=== PATIENT | female | born 1995 | race African-American/Black ===

== ENCOUNTER 2016-10-20 18:07 | Inpatient (IN) | payer OTHER ==
[~2016-10-20] VITALS: Ht 152.4 cm; Wt 69.4 kg
[2016-10-20] VITALS (10 sets, daily range): BP systolic 108–125; BP diastolic 60–74; PULSE 98–114; RESP 18; TEMP 98–98.3
[~2016-10-20 18:07] MED LIST: MACR100C PO
--- NOTE | 2016-10-20 18:35 | PD ---
HPI Chief Complaint Contractions Date Seen: Oct 20, 2016 Time Seen: 18:31 Travel History International Travel<30 Days: No Contact w/Intl Traveler<30Days: No Known Affected Area: No History of Present Illness HPI 20-year-old 3 para 1 AB 1 with an EDC of January 15 at 27 and 3 weeks gestation. She states that she has been having contractions since midnight. She denies bleeding, leakage of fluid, discharge. Her last intercourse was greater than 48 hours ago. She has not found anything to help the contractions diminish. Para: 1 : 3 Miscarriage: 1 : 0 History Past Medical History Medical History: Denies Significant Hx Obstetric History Obstetric History 1 term vaginal delivery One miscarriage with D&C Current is cared for by Christa Dunbar and has been uncomplicated so far. Past Surgical History Narrative Surgical D&C Family History Family History: Negative Social History Alcohol Use: No Tobacco Use: No Substance Abuse: No Allergies-Medications (Allergen,Severity, Reaction): Coded Allergies: No Known Allergies (Unverified , 07/08/16) Home Meds No Active Prescriptions or Reported Meds Review of Systems Except as stated in HPI: all other systems reviewed are Neg Physical Exam Narrative GENERAL: Well-nourished, well-developed patient. SKIN: Warm and dry. HEAD: Normocephalic and atraumatic. EYES: No scleral icterus. No injection or drainage. ENT: No nasal drainage noted. Mucous membranes pink. Airway patent. NECK: Supple, trachea midline. No JVD. CARDIOVASCULAR: Regular rate and rhythm without murmurs, gallops, or rubs. RESPIRATORY: Breath sounds equal bilaterally. No accessory muscle use. ABDOMEN/GI: Abdomen soft, non-tender, bowel sounds present, no rebound, no guarding Gravid to [-] weeks size Fundal Height: [-] GENITOURINARY: External Genitalia: intact and normal in appearance BUS glands: [-Negative] Cervix: [-] Dilatation: [Closed-] Effacement: [Long-] Station: [-Ballotable] Presentation: [-] Membranes: [intact] Uterine Contractions: [-] FHT's: Category: [-] Baseline: [-] Reactive: [-] Variability: [-] Decels: [-] EXTREMITIES: No cyanosis or edema. BACK: Nontender without obvious deformity. No CVA tenderness. NEUROLOGICAL: Awake and alert. Motor and sensory grossly within normal limits. Five out of 5 muscle strength in all muscle groups. Normal speech. MDM Medical Record Reviewed: Yes Narrative Course / MDM Assessment: 20-year-old multipara at 27-3/7 weeks gestation with contractions, rule out labor Plan: IV hydration, urinalysis, fibronectin Addendum: fibronectin was positive, urinalysis was negative for LC and nitrite and 5 squamous epithelial per high-power field (culture indicated) 10 mg of by mouth Procardia. Addendum: 1 hour after Procardia her contractions were diminishing however repeat cervical examination demonstrated dilation 1-2 cm 50% effacement and -2 station The patient will be admitted for treatment of labor. Scripts No Active Prescriptions or Reported Meds Demarcus Villa MD Oct 20, 2016 18:35
[2016-10-20 19:18] LABS: BACTERIA, URINE RARE /hpf; BLOOD, URINE NEG (NEG); COMMENT (UR) CULTURE INDICATED; CULTURE IF INDICATED CULTURE INDICATED; GLUCOSE,URINE 70 mg/dL (NEG); KETONE, URINE TRACE mg/dL (NEG); MUCUS URINE FEW /lpf (OCC); NITRITE,URINE NEG (NEG); PH, URINE 6.5 (5.0-8.5); SQUAMOUS EPITHELIAL CELL URINE 5 /hpf (0-5); URINE COLOR YELLOW (YELLW/STRAW)
[2016-10-20] MEDS ORDERED: NIFEdipine 10 MG CAP PO ONE (20:00)
[2016-10-20] MEDS ORDERED: SODIUM CHLORIDE 0.9% FLUSH 5 ML FLUSH IV PRN (21:15)
[2016-10-20] MEDS ORDERED: ONDANSETRON HCL 4 MG/2 ML VIAL IV PRN (21:15)
[2016-10-20] MEDS ORDERED: INDOMETHACIN 50 MG CAP PO ONE ×2 (21:15→22:30)
[2016-10-20] MEDS ORDERED: CALCIUM GLUCONATE 10% 1 GM/10 ML VIAL IV PRN (21:15)
[2016-10-20] MEDS ORDERED: MAGNESIUM SULFATE 4 GM PREMIX 100 ML IV ONE (21:15)
[2016-10-20] MEDS ORDERED: LIDOCAINE 2% JELLY 30 ML TUBE ONE (21:16)
[2016-10-20] MEDS ORDERED: PENICILLIN G POTASSIUM INJ 5,000,000 UNITS in SODIUM CHLORIDE 0.9% INJ 100 ML IV ONE (21:30)
[2016-10-20] MEDS: LACTATED RINGER'S 1000 ML INJ 1,000 ML IV SCH (21:30)
[2016-10-20] MEDS: MAGNESIUM SULFATE 40 GM PREMIX 1,000 ML IV SCH (21:31)
[2016-10-20] MEDS: BETAMETHASONE SOD PHOS/ACETATE SUSP 30 MG/5 ML VIAL IM SCH (22:00)
--- NOTE | 2016-10-20 22:36 | HHI.HP ---
History & Physical H&P HPI HPI Chief Complaint Contractions Date Seen: Oct 20, 2016 Time Seen: 18:31 Travel History International Travel<30 Days: No Contact w/Intl Traveler<30Days: No Known Affected Area: No History of Present Illness HPI 20-year-old 3 para 1 AB 1 with an EDC of January 15 at 27 and 3 weeks gestation. She states that she has been having contractions since midnight. She denies bleeding, leakage of fluid, discharge. Her last intercourse was greater than 48 hours ago. She has not found anything to help the contractions diminish. Following hydration and observation her cervix demonstrated obvious change in dilation and she was therefore admitted for treatment of labor. Para: 1 : 3 Miscarriage: 1 : 0 History (Limited) History Past Medical History Medical History: Denies Significant Hx Obstetric History Obstetric History 1 term vaginal delivery One miscarriage with D&C Current is cared for by Christa Dunbar and has been uncomplicated so far. Past Surgical History Narrative Surgical D&C Family History Family History: Negative Social History Alcohol Use: No Tobacco Use: No Substance Abuse: No Allergies-Medications Allergies-Medications (Allergen,Severity, Reaction): Coded Allergies: No Known Allergies (Unverified , 07/08/16) Home Meds No Active Prescriptions or Reported Meds ROS Review of Systems Except as stated in HPI: all other systems reviewed are Neg Physical Exam Physical Exam Narrative GENERAL: Well-nourished, well-developed patient. SKIN: Warm and dry. HEAD: Normocephalic and atraumatic. EYES: No scleral icterus. No injection or drainage. ENT: No nasal drainage noted. Mucous membranes pink. Airway patent. NECK: Supple, trachea midline. No JVD. CARDIOVASCULAR: Regular rate and rhythm without murmurs, gallops, or rubs. RESPIRATORY: Breath sounds equal bilaterally. No accessory muscle use. ABDOMEN/GI: Abdomen soft, non-tender, bowel sounds present, no rebound, no guarding Gravid to [-] weeks size Fundal Height: [-] GENITOURINARY: External Genitalia: intact and normal in appearance BUS glands: [-Negative] Cervix: [-] Dilatation: [1-2] Effacement: [50-] Station: [-3] Presentation: [v-] Membranes: [intact] Uterine Contractions: [q3-8-] FHT's: Category: [1-] Baseline: [-] Reactive: [-] Variability: [-] Decels: [-] EXTREMITIES: No cyanosis or edema. BACK: Nontender without obvious deformity. No CVA tenderness. NEUROLOGICAL: Awake and alert. Motor and sensory grossly within normal limits. Five out of 5 muscle strength in all muscle groups. Normal speech. Data Data MDM MDM Medical Record Reviewed: Yes Narrative Course / MDM Assessment: 20-year-old multipara at 27-3/7 weeks gestation with labor Plan: IV hydration, magnesium for neuro protection, betamethasone for maturation, GBS prophylaxis, Indocin 100 mg by mouth followed by 25 mg by mouth every 6 Demarcus Villa MD Oct 20, 2016 18:35 Demarcus Villa MD Oct 20, 2016 22:36
[2016-10-20 22:59] LABS: AMPHETAMINE, URINE NEG (NEG); BARBITURATES, URINE NEG (NEG); COCAINE, URINE NEG (NEG)
[2016-10-21] VITALS (9 sets, daily range): BP systolic 107–128; BP diastolic 46–73; PULSE 91–103; RESP 18
[2016-10-21 00:47] LABS: CHLAMYDIA PCR NOT DETECTED (NOT DETECT); NEISSERIA PCR NOT DETECTED (NOT DETECT)
[2016-10-21] MEDS: PENICILLIN G POTASSIUM INJ 2,500,000 UNITS in SODIUM CHLORIDE 0.9% INJ 100 ML IV SCH ×6 (02:00→21:50)
[2016-10-21] MEDS: INDOMETHACIN 25 MG CAP PO SCH ×4 (04:30→19:53)
--- NOTE | 2016-10-21 04:47 | PD.OB.ANTE ---
Subjective Antepartum ROS: Denies: New complaints, Loss of fluid, Vaginal bleeding, movement normal, Contractions, Other Objective Vital Signs Vital Signs Date Time Temp Pulse Resp B/P Pulse Ox O2 Delivery O2 Flow Rate FiO2 10/21/16 02:00 94 111/61 10/21/16 01:56 18 10/21/16 01:00 18 10/21/16 01:00 92 115/55 10/21/16 00:00 103 18 128/73 10/20/16 22:00 114 121/67 10/20/16 21:55 107 116/74 10/20/16 21:52 98.0 18 10/20/16 21:50 112 125/69 10/20/16 21:45 112 123/71 10/20/16 21:40 109 121/66 10/20/16 21:35 111 117/68 10/20/16 21:30 109 115/66 10/20/16 21:27 103 114/68 10/20/16 18:57 98.3 98 108/60 10/20/16 18:57 18 Lab & Micro Results Test 10/20/16 10/20/16 18:30 21:00 Urine Color YELLOW Urine Turbidity HAZY Urine pH 6.5 Urine Specific [place] 1.028 Urine Protein 30 mg/dL Urine Glucose (UA) 70 mg/dL Urine Ketones TRACE mg/dL Urine Occult Blood NEG Urine Nitrite NEG Urine Bilirubin NEG Urine Urobilinogen LESS THAN 2.0 MG/DL Urine Leukocyte Esterase SMALL Urine RBC 3 /hpf Urine WBC 27 /hpf Urine Squamous Epithelial 5 /hpf Cells Urine Bacteria RARE /hpf Urine Mucus FEW /lpf Microscopic Urinalysis Comment CULTURE INDICATED Fibronectin POSITIVE Urine Opiates Screen NEG Urine Barbiturates Screen NEG Urine Amphetamines Screen NEG Urine Benzodiazepines Screen NEG Urine Cocaine Screen NEG Urine Cannabinoids Screen NEG Chlamydia trachomatis DNA NOT DETECTED (PCR) Neisseria gonorrhoeae DNA NOT DETECTED (PCR) Clue Cells (Wet Prep) NONE SEEN Vaginal Trichomonas (Wet Prep) NONE SEEN Vaginal Yeast (Wet Prep) NONE SEEN Date/Time Procedure Status Source Growth 10/20/16 21:00 Group B Streptococcus Screen Received Genital Genital Region Pending 10/20/16 18:30 Urine Culture Received Urine Clean Catch Pending Physical Exam GENERAL: Well-nourished, well-developed patient. CARDIOVASCULAR: Regular rate and rhythm without murmurs, gallops, or rubs. RESPIRATORY: Breath sounds equal bilaterally. No accessory muscle use. ABDOMEN/GI: Abdomen soft, non-tender. Fundus: [-] GENITOURINARY: Uterine Contractions: [Mild irregular-] FHT's: Category: [1-] Baseline: [-] Reactive: [-] Variability: [-] Decels: [-] EXTREMITIES: No cyanosis or edema, non-tender, without signs of DVT. Assessment and Plan Assessment and Plan Assessment: labor with good response to Indocin Plan: Continue magnesium for neuro protection 24 hours Continue betamethasone now status post one dose Await urine culture results If GBS negative we'll discontinue penicillin. Demarcus Villa MD Oct 21, 2016 04:47
[2016-10-21] MEDS: LACTATED RINGER'S 1000 ML INJ 1,000 ML IV SCH ×3 (06:00→22:00)
--- NOTE | 2016-10-21 07:37 | PD.OB.ANTE ---
Subjective Interval History Pt resting comfortably. Denies contractions. She reports feeling significantly improved compared to when she initially came to the ED. Denies PATEL, vision changes, chest pain, edema. Antepartum ROS: Reports: movement normal, Contractions (Decreased in frequency and intensity), Denies: New complaints, Loss of fluid, Vaginal bleeding (Irasema Galarza MD R2) Objective Vital Signs Vital Signs Date Time Temp Pulse Resp B/P Pulse Ox O2 Delivery O2 Flow Rate FiO2 10/21/16 06:00 91 107/46 10/21/16 05:00 92 115/61 10/21/16 02:00 94 111/61 10/21/16 01:56 18 10/21/16 01:00 18 10/21/16 01:00 92 115/55 10/21/16 00:00 103 18 128/73 10/20/16 22:00 114 121/67 10/20/16 21:55 107 116/74 10/20/16 21:52 98.0 18 10/20/16 21:50 112 125/69 10/20/16 21:45 112 123/71 10/20/16 21:40 109 121/66 10/20/16 21:35 111 117/68 10/20/16 21:30 109 115/66 10/20/16 21:27 103 114/68 10/20/16 18:57 98.3 98 108/60 10/20/16 18:57 18 Lab & Micro Results Test 10/20/16 10/20/16 18:30 21:00 Urine Color YELLOW Urine Turbidity HAZY Urine pH 6.5 Urine Specific [place] 1.028 Urine Protein 30 mg/dL Urine Glucose (UA) 70 mg/dL Urine Ketones TRACE mg/dL Urine Occult Blood NEG Urine Nitrite NEG Urine Bilirubin NEG Urine Urobilinogen LESS THAN 2.0 MG/DL Urine Leukocyte Esterase SMALL Urine RBC 3 /hpf Urine WBC 27 /hpf Urine Squamous Epithelial 5 /hpf Cells Urine Bacteria RARE /hpf Urine Mucus FEW /lpf Microscopic Urinalysis Comment CULTURE INDICATED Fibronectin POSITIVE Urine Opiates Screen NEG Urine Barbiturates Screen NEG Urine Amphetamines Screen NEG Urine Benzodiazepines Screen NEG Urine Cocaine Screen NEG Urine Cannabinoids Screen NEG Chlamydia trachomatis DNA NOT DETECTED (PCR) Neisseria gonorrhoeae DNA NOT DETECTED (PCR) Clue Cells (Wet Prep) NONE SEEN Vaginal Trichomonas (Wet Prep) NONE SEEN Vaginal Yeast (Wet Prep) NONE SEEN Date/Time Procedure Status Source Growth 10/20/16 21:00 Group B Streptococcus Screen Received Genital Genital Region Pending 10/20/16 18:30 Urine Culture Received Urine Clean Catch Pending Physical Exam GENERAL: Well-nourished, well-developed patient. CARDIOVASCULAR: Regular rate and rhythm without murmurs, gallops, or rubs. RESPIRATORY: Breath sounds equal bilaterally. No accessory muscle use. ABDOMEN/GI: Abdomen soft, non-tender. Fundus: [-] GENITOURINARY: External Genitalia: intact and normal in appearance Dilatation: 1-2 Effacement: 50% Station: -3 Presentation: Vertex Membranes: Intact Uterine Contractions: Absent FHT's: Category: 1 Baseline: 135 Reactive: + Variability: Moderate Decels: Absent EXTREMITIES: No cyanosis or edema, non-tender, without signs of DVT. (Irasema Galarza MD R2) Assessment and Plan Assessment and Plan 20 year old currently 27/5 weeks gestation, presenting due to contractions 1) IUP Category 1 tracing, reassuring External monitoring/[place] 2) contractions fibronectin positive Betamethasone x1 Second dose of betamethasone due at 2200 today Continue Magnesium for neuroprotection until 2130 today Urine culture pending GBS pending, DC penicillin if negative wdw Dr. Villa (Irasema Galarza MD R2) Assessment and Plan Patient seen and evaluated with resident under direct supervision, agree with assessment and plan. (Demarcus Villa MD) Irasema Galarza MD R2 Oct 21, 2016 07:37 Demarcus Villa MD Nov 08, 2016 19:23
[2016-10-21] MEDS: SODIUM CHLORIDE 0.9% FLUSH 5 ML FLUSH IV SCH ×2 (09:00→21:00)
[2016-10-21] MEDS: MAGNESIUM SULFATE 40 GM PREMIX 1,000 ML IV SCH (17:53)
[2016-10-21] MEDS: BETAMETHASONE SOD PHOS/ACETATE SUSP 30 MG/5 ML VIAL IM SCH (21:50)
[2016-10-22 00:24] VITALS: BP 101/52; PULSE 89
[2016-10-22] MEDS ORDERED: ACETAMINOPHEN 325 MG TAB PO PRN (00:30)
[2016-10-22] MEDS: PENICILLIN G POTASSIUM INJ 2,500,000 UNITS in SODIUM CHLORIDE 0.9% INJ 100 ML IV SCH ×2 (02:11→06:22)
[2016-10-22] MEDS: INDOMETHACIN 25 MG CAP PO SCH (02:11)
[2016-10-22] MEDS: LACTATED RINGER'S 1000 ML INJ 1,000 ML IV SCH (06:22)
--- NOTE | 2016-10-22 08:13 | PD.OB.ANTE ---
Subjective Interval History Patient seen and examined this morning. Had headache this morning, but resolved. Denies vaginal bleeding, loss of fluids, contractions. Endorses movement. Denies chest pain, SOB, leg pain. Did have a couple episodes of diarrhea this morning. Otherwise, doing well. Antepartum ROS: Denies: New complaints, Loss of fluid, Vaginal bleeding, movement normal, Contractions, Other (Joseph Carr MD R1) Objective Vital Signs Vital Signs Date Time Temp Pulse Resp B/P Pulse Ox O2 Delivery O2 Flow Rate FiO2 10/22/16 00:24 89 101/52 10/21/16 21:00 103 122/66 10/21/16 20:00 103 128/70 10/21/16 19:20 18 Lab & Micro Results Date/Time Procedure Status Source Growth 10/20/16 21:00 Group B Streptococcus Screen - Preliminary Resulted Genital Genital Region RESULTS PENDING 10/20/16 18:30 Urine Culture - Preliminary Resulted Urine Clean Catch Gram Negative Luis Alberto Physical Exam GENERAL: Well-nourished, well-developed patient. CARDIOVASCULAR: Regular rate and rhythm without murmurs, gallops, or rubs. RESPIRATORY: Breath sounds equal bilaterally. No accessory muscle use. ABDOMEN/GI: Abdomen soft, non-tender. Fundus: 27 EXTREMITIES: No cyanosis or edema, non-tender, without signs of DVT. (Joseph Carr MD R1) Assessment and Plan Assessment and Plan 20 year old currently 27/6 weeks gestation, presenting due to contractions 1) IUP Category 1 tracing, reassuring External monitoring/[place] 2) contractions fibronectin positive Betamethasone x2 s/p Magnesium Urine culture: GNR GBS pending, DC penicillin if negative dw Dr. Leal (Joseph Carr MD R1) Assessment and Plan Patient seen and examined with the resident under direct supervision, I agree with the assessment and plan. (Donnell Leal MD) Joseph Carr MD R1 Oct 22, 2016 08:13 Donnell Leal MD Oct 27, 2016 20:40 Joseph Carr MD R1 Oct 22, 2016 08:13
--- NOTE | 2016-10-22 09:42 | HHI.DCPOC ---
Discharge Care Plan Diagnosis: (1) Intrauterine (2) contractions Goals to Promote Your Health * To prevent worsening of your condition and complications * To maintain your health at the optimal level Directions to Meet Your Goals Take your medications as prescribed Follow your dietary instruction Follow activity as directed Keep your appointments as scheduled Take your immunizations and boosters as scheduled If your symptoms worsen call your PCP, if no PCP go to Urgent Care Center or Emergency Room Smoking is Dangerous to Your Health. Avoid second hand smoke Call the 24-hour hour crisis hotline for domestic abuse at Attestation Patient seen and evaluated with the resident under direct supervision, I agree with the assessment and plan. Joseph Carr MD R1 Oct 22, 2016 09:42 Donnell Leal MD Oct 27, 2016 20:46
[2016-10-22] MEDS ORDERED: MACR100C2 PO (11:38)
[2016-10-22] MEDS ORDERED: NIFE30TA61 PO (19:40)
== END 2016-10-22 12:06 | disposition home or self-care (01) | DRG 778 ==
LOC: HOBED 18:07 → H2EA 21:16
PROVIDERS: ADMIT Obstetrics & Gynecology; ATTEND Obstetrics & Gynecology
DX: O60.02 Preterm labor without delivery, second trimester (principal); R51 Headache; Z3A.27 27 weeks gestation of pregnancy; R19.7 Diarrhea, unspecified
CPT/HCPCS: 80307; 81001; 82731; 87077; 87081; 87086; 87186; 87210; 87491; 87591; 96360; 96361; J0702; J2540; J3475; J7120

== ENCOUNTER 2016-10-22 18:37 | Emergency (ER) | payer OTHER ==
[~2016-10-22 18:37] MED LIST changes: +MACR100C2 PO
[2016-10-22] MEDS ORDERED: NIFE30TA61 PO (19:40)
--- NOTE | 2016-10-22 19:41 | PD ---
HPI Chief Complaint Planning of contractions today but now they've stopped, denies bleeding or rupture the membranes Date Seen: Oct 22, 2016 Travel History International Travel<30 Days: No Contact w/Intl Traveler<30Days: No Known Affected Area: No History of Present Illness HPI This patient is a 20-year-old black female at 28 weeks tomorrow who presents today for recurring contraction activity. She denies bleeding or rupture the membranes are baby is active. Patient went home earlier today after being care for 36-48 hours for IV magnesium for contractions. She had a positive fibronectin on 10/20 she was given a prescription for antibiotic for bladder infection does not fill that yet. She is not on no tocolytic medication at home. Para: 1 : 3 : 1 History Past Medical History Narrative Medical Pts history + for 1 vaginal delivery at term Obstetric History Obstetric History 1 term delivery and 1 miscarriage Social History Alcohol Use: No Tobacco Use: No Substance Abuse: No Allergies-Medications (Allergen,Severity, Reaction): Coded Allergies: No Known Allergies (Unverified , 07/08/16) Home Meds Active Scripts Nitrofurantoin Monohydrate Macrocrystals (Macrobid)100 Mg [id number] Mg PO BID #14 CAP Ref 0 Prov:Joseph Carr MD R1 10/22/16 Review of Systems Gastrointestinal: Abdominal Pain Physical Exam Narrative GENERAL: Well-nourished, well-developed patient. SKIN: Warm and dry. HEAD: Normocephalic and atraumatic. EYES: No scleral icterus. No injection or drainage. ENT: No nasal drainage noted. Mucous membranes pink. Airway patent. NECK: Supple, trachea midline. No JVD. CARDIOVASCULAR: Regular rate and rhythm without murmurs, gallops, or rubs. RESPIRATORY: Breath sounds equal bilaterally. No accessory muscle use. BREASTS: Bilateral exam showed no masses , no retractions, no nipple discharge. ABDOMEN/GI: Abdomen soft, non-tender, bowel sounds present, no rebound, no guarding Gravid to [-28] weeks size Fundal Height: [27 cm-] GENITOURINARY: External Genitalia: intact and normal in appearance BUS glands: [-] Cervix: [-] Dilatation: [-fingertip at int os , 1 cm at ext os] Effacement: [50-] Station: [-3] Presentation: [-vtx] Membranes: [intact ] Uterine Contractions: [none now-] FHT's: Category: [1-] Baseline: [144-] Reactive: [yes-] Variability: [mod-] Decels: [none-] EXTREMITIES: No cyanosis or edema. BACK: Nontender without obvious deformity. No CVA tenderness. NEUROLOGICAL: Awake and alert. Motor and sensory grossly within normal limits. Five out of 5 muscle strength in all muscle groups. Normal speech. MDM Interpretation(s) This patient is a 20-year-old black female at 28 weeks tomorrow presents for threatened labor, after being in the hospital for 36 hours for threatened labor where she was given magnesium sulfate IV, had a positive fibronectin test and was treated for UTI, she was sent home today because she had stopped boni had no regular contractions overnight and was able to be sent home at that point after having had both her steroid shots however she's felt that she was having more contractions and came back this evening for evaluation. Tonight the patient is not having any regular contractions only minimal amount of uterine irritability her cervix on my exam is 1 cm the external os 50% effaced melded barely fingertip at the internal os. And in a multiparous patient that maybe a baseline exam but is not changed and is essentially normal. Since she's having more contraction activity times I recommended trying nifedipine as an outpatient ,.given 30 mg XL once a day dosing. She is to increase bedrest increase her fluid intake use Tylenol 1-2 orally for pain as needed and take her other medications as well as antibiotics for UTI etc. she is to follow-up she says she has appointment tomorrow with Christa Dunbar is doing her glucose test later this week Plan Plan as described above we'll beginning oral nifedipine as outpatient daily, increase her bedrest, Tylenol liberally, increase her fluids and return for any increasing pains or problems. Diagnosis Diagnosis: Primary Impression: Threatened labor, antepartum Additional Impression: UTI (lower urinary tract infection) Disposition: 01 DISCHARGE HOME Condition: Stable Scripts Nifedipine ER 24 HR 30 Mg Tab30 Mg PO DAILY #30 TAB Ref 10 Prov:Matthieu Faust II, MD 10/22/16 Matthieu Faust II, MD Oct 22, 2016 19:41
[2016-10-22] MEDS ORDERED: NIFEdipine 30 MG SUSTAINED RELEASE TAB PO ONE (19:45)
== END 2016-10-22 20:00 | disposition home or self-care (01) ==
LOC: HOBED 18:37
DX: O47.00 False labor before 37 completed weeks of gestation, unspecified trimester (principal); O23.32 Infections of other parts of urinary tract in pregnancy, second trimester
CPT/HCPCS: 99284

== ENCOUNTER 2016-11-25 06:10 | Emergency (ER) | payer OTHER ==
[~2016-11-25 06:10] MED LIST changes: -MACR100C PO; +NIFE30TA61 PO
[2016-11-25 06:23] VITALS: BP 113/71; PULSE 94
[2016-11-25 06:24] VITALS: RESP 18; TEMP 98.5
[2016-11-25] MEDS ORDERED: LACTATED RINGER'S 1000 ML INJ 1,000 ML IV ONE (06:30)
--- NOTE | 2016-11-25 06:53 | PD ---
HPI Chief Complaint contractions Date Seen: Nov 25, 2016 Travel History International Travel<30 Days: No Contact w/Intl Traveler<30Days: No History of Present Illness HPI 20 yo @ 32w5d with CONSTANCE 01-15-2017. care with [facility]. Patient previously admitted for contractions with a POS ffn @ 28 weeks. SVE at that time and on f/u KIKI was 1/50%/-3. She receives Betamethasone course. This morning after intercourse she began to have contractions every 3 min. No VB, LOF. +FM History Past Medical History Narrative Medical Asthma - childhood Tattoo Obstetric History Obstetric History @ 38 weeks 2013 SAB x 1 Past Surgical History Surgical History: No Previous Surgery Allergies-Medications (Allergen,Severity, Reaction): Coded Allergies: No Known Allergies (Unverified , 07/08/16) Home Meds Active Scripts Nifedipine ER 24 HR 30 Mg Tab30 Mg PO DAILY #30 TAB Ref 10 Prov:Matthieu Faust II, MD 10/22/16 Nitrofurantoin Monohydrate Macrocrystals (Macrobid)100 Mg [id number] Mg PO BID #14 CAP Ref 0 Prov:Joseph Carr MD R1 10/22/16 Review of Systems General / Constitutional: No: Fever, Chills Eyes: No: Blurred Vision, Visual changes HENT: No: Headaches, Lightheadedness Cardiovascular: No: Chest Pain or Discomfort, Palpitations Respiratory: No: Cough, Short of Breath Gastrointestinal: Abdominal Pain (contractions), No: Nausea, Vomiting Genitourinary: No: Urgency, Frequency, Dysuria, Discharge, Vaginal Bleeding Musculoskeletal: No: Limited ROM, Weakness Skin: No Rash, No Itching Neurologic: No: Syncope, Focal Abnormalities Physical Exam Vital Signs Date Time Temp Pulse Resp B/P Pulse Ox O2 Delivery O2 Flow Rate FiO2 11/25/16 06:24 98.5 11/25/16 06:24 18 11/25/16 06:23 94 113/71 Narrative GENERAL: Well-nourished, well-developed patient. SKIN: Warm and dry. HEAD: Normocephalic and atraumatic. EYES: No scleral icterus. No injection or drainage. ENT: No nasal drainage noted. Mucous membranes pink. Airway patent. NECK: Supple, trachea midline. No JVD. CARDIOVASCULAR: Regular rate RESPIRATORY: No accessory muscle use. ABDOMEN/GI: Abdomen soft, non-tender, no rebound, no guarding Gravid, NT GENITOURINARY: External Genitalia: intact and normal in appearance SVE 1/50/-3 posterior, unchanged TOCO: UC q 3 min FHT's: Category: I Baseline: 135 Reactive: +accelerations Variability: mod Decels: [-] EXTREMITIES: No cyanosis or edema. BACK: Nontender without obvious deformity. Normal ROM NEUROLOGICAL: Awake and alert. Motor and sensory grossly within normal limits. Normal speech. Data Data Vital Signs Reviewed: Yes Orders Vital Signs (Adult) .ON ADMISSION (11/25/16 06:19) ^ Labor Status (11/25/16 06:19) Urinalysis - C+S If Indicated (11/25/16 06:19) ^ Non Stress Test (11/25/16 06:19) Fibronectin (11/25/16 06:19) Lactated Ringer's 1000 Ml Inj (Lr 1000 M (11/25/16 06:30) Complete Blood Count With Diff (11/25/16 06:43) Labs Laboratory Tests Test 11/25/16 11/25/16 06:25 06:55 Urine Color YELLOW (YELLW/STRAW) Urine Turbidity CLEAR (CLEAR) Urine pH 6.5 (5.0-8.5) Urine Specific [place] 1.019 (1.002-1.035) Urine Protein TRACE mg/dL (NEG-TRACE) Urine Glucose (UA) NEG mg/dL (NEG) Urine Ketones NEG mg/dL (NEG) Urine Occult Blood NEG (NEG) Urine Nitrite POS (NEG) Urine Bilirubin NEG (NEG) Urine Urobilinogen LESS THAN 2.0 MG/DL (LESS THAN 2.0) Urine Leukocyte Esterase SMALL (NEG) Urine RBC LESS THAN 1 /hpf (0-3) Urine WBC 4 /hpf (0-5) Urine Squamous Epithelial 1 /hpf (0-5) Cells Urine Bacteria MANY /hpf (NONE) Urine Mucus FEW /lpf (OCC) Microscopic Urinalysis Comment CULTURE INDICATED White Blood Count 11.2 TH/MM3 (4.0-11.0) Red Blood Count 3.71 MIL/MM3 (4.00-5.30) Hemoglobin 10.5 GM/DL (11.6-15.3) Hematocrit 30.3 % (35.0-46.0) Mean Corpuscular Volume 81.7 FL (80.0-100.0) Mean Corpuscular Hemoglobin 28.2 PG (27.0-34.0) Mean Corpuscular Hemoglobin 34.6 % Concent (32.0-36.0) Red Cell Distribution Width 12.6 % (11.6-17.2) Platelet Count 375 TH/MM3 (150-450) Mean Platelet Volume 7.8 FL (7.0-11.0) Neutrophils (%) (Auto) 65.4 % (16.0-70.0) Lymphocytes (%) (Auto) 26.6 % (9.0-44.0) Monocytes (%) (Auto) 7.1 % (0.0-8.0) Eosinophils (%) (Auto) 0.5 % (0.0-4.0) Basophils (%) (Auto) 0.4 % (0.0-2.0) Neutrophils # (Auto) 7.3 TH/MM3 (1.8-7.7) Lymphocytes # (Auto) 3.0 TH/MM3 (1.0-4.8) Monocytes # (Auto) 0.8 TH/MM3 (0-0.9) Eosinophils # (Auto) 0.1 TH/MM3 (0-0.4) Basophils # (Auto) 0.0 TH/MM3 (0-0.2) CBC Comment DIFF FINAL Differential Comment MDM Narrative Course / MDM 32 weeks hx of contractions with positive ffn @ 28 weeks Now contractions after intercourse, no cervical change cannot obtain ffn at this time CAT I FHT UA - c/w UTI IV fluids Terb x 2 given Rocephin 1g IV given Resolution of UC Patient feels well, declines recheck F/u with [facility] Rx Macrobid Diagnosis Diagnosis: Primary Impression: Genitourinary tract infection during in third trimester Additional Impressions: uterine contractions in third trimester, antepartum 32 weeks gestation of Disposition: 01 DISCHARGE HOME Condition: Good Zahra Ball MD Nov 25, 2016 06:53
[2016-11-25] MEDS ORDERED: TERBUTALINE INJ 1 MG/ML AMP SQ ONE ×2 (07:00→08:00)
[2016-11-25 07:05] LABS: BACTERIA, URINE MANY /hpf; BLOOD, URINE NEG (NEG); COMMENT (UR) CULTURE INDICATED; CULTURE IF INDICATED CULTURE INDICATED; GLUCOSE,URINE NEG (NEG); KETONE, URINE NEG (NEG); MUCUS URINE FEW /lpf (OCC); PH, URINE 6.5 (5.0-8.5); SQUAMOUS EPITHELIAL CELL URINE 1 /hpf (0-5); URINE COLOR YELLOW (YELLW/STRAW)
[2016-11-25 07:06] LABS: NITRITE,URINE POS (NEG)
[2016-11-25 07:24] LABS: AUTOMATED NEUTROPHIL # 7.3 TH/MM3 (1.8-7.7); BASOPHIL % 0.4 % (0.0-2.0); EOSINOPHIL # 0.1 TH/MM3 (0-0.4); EOSINOPHIL % 0.5 % (0.0-4.0); HEMATOCRIT 30.3 % (35.0-46.0); HEMO FLAGS DIFF FINAL; LYMPH % 26.6 % (9.0-44.0); MEAN CELL VOLUME 81.7 FL (80.0-100.0); MEAN CORPUSCULAR HEMOGLOBIN 28.2 PG (27.0-34.0); MEAN CORPUSCULAR HGB CONC 34.6 % (32.0-36.0); MONO % 7.1 % (0.0-8.0); NEUT % 65.4 % (16.0-70.0); PLATELET COUNT 375 TH/MM3 (150-450); RED BLOOD COUNT 3.71 MIL/MM3 (4.00-5.30); RED CELL DISTRIBUTION WIDTH 12.6 % (11.6-17.2); WHITE BLOOD COUNT 11.2 TH/MM3 (4.0-11.0)
[2016-11-25 07:58] VITALS: BP 121/59; PULSE 87
[2016-11-25] MEDS ORDERED: MACR100C2 PO ×2 (08:41→09:09)
== END 2016-11-25 08:53 | disposition home or self-care (01) ==
LOC: HOBED 06:10
DX: O60.03 Preterm labor without delivery, third trimester (principal); Z3A.32 32 weeks gestation of pregnancy; B96.20 Unspecified Escherichia coli [E. coli] as the cause of diseases classified elsewhere
CPT/HCPCS: 81001; 85025; 87077; 87086; 87186; 96372; 99284; J0696; J3105; J7120

== ENCOUNTER 2016-12-03 20:15 | Emergency (ER) | payer OTHER ==
[~2016-12-03] VITALS: Ht 152.4 cm; Wt 77.0 kg
[2016-12-03 20:17] VITALS: BP 130/77; PULSE 101; RESP 16; TEMP 98; O2SAT 99
[2016-12-03] MEDS ORDERED: CEPH-460 PO (23:24)
--- NOTE | 2016-12-03 23:24 | PD ---
HPI Chief Complaint: Lump, Cyst, Hernia Time Seen by Provider: 23:08 Travel History International Travel<30 days: No Contact w/Intl Traveler<30days: No Traveled to known affect area: No History of Present Illness HPI 20-year-old female approximately 34 weeks presents for evaluation of painful bump to her left follow-up. The patient notices bump about 2 weeks ago after shaving her pubic area. She was told that it was likely razor burn/ingrown hair. Today the area is a little bit larger and is moderately painful especially to palpation. She denies fevers or chills. No vaginal discharge or bleeding. No spontaneous drainage. PFSH Past Medical History Hx Anticoagulant Therapy: No ADHD: No Asthma: Yes Depression: Yes Cancer: No Cardiovascular Problems: No Chemotherapy: No Cerebrovascular Accident: No Developmental Delay: No Diabetes: No Diminished Hearing: No Psychiatric: Yes (DEPRESSION) Respiratory: No Immunizations Current: Yes Migraines: No Seizures: No Thyroid Disease: No Ulcer: No Tetanus Vaccination: < 5 Years Influenza Vaccination: No ?: LMP: 04/18/16 : 2 Para: 1 Miscarriage: 0 : 0 Past Surgical History Hysterectomy: No Other Surgery: No Social History Alcohol Use: No Tobacco Use: No Substance Use: No Allergies-Medications (Allergen,Severity, Reaction): Coded Allergies: No Known Allergies (Unverified , 12/03/16) Reported Meds & Prescriptions Reported Meds & Active Scripts Active No Active Prescriptions or Reported Medications Review of Systems Except as stated in HPI: all other systems reviewed are Neg Physical Exam Narrative GENERAL: Well-developed, well-nourished, comfortable, no acute distress. GASTROINTESTINAL: Gravid uterus above the umbilicus. ANIMAL CAREGIVER: Exam performed in the presence of a female nurse. Left labia majora there is an area of induration with central papule, no fluctuance, mild overlying warmth. Normal introitus. PSYCHIATRIC: Appropriate mood and affect; insight and judgment normal. Data Data Last Documented VS Vital Signs Date Time Temp Pulse Resp B/P Pulse Ox O2 Delivery O2 Flow Rate FiO2 12/03/16 20:42 16 12/03/16 20:17 98.0 101 130/77 99 Orders Cephalexin (Keflex) (12/03/16 23:30) [facility] Medical Decision Making Medical Screen Exam Complete: Yes Emergency Medical Condition: Yes Differential Diagnosis Labial cellulitis, labial abscess, cyst, Bartholin cyst not likely Narrative Course This is a 20-year-old female who is approximately 30 weeks who is here for evaluation of a painful lump on her left labia. The patient shaves her pubic area. She has an area of induration with overlying warmth and a small papule at the center. There is no spontaneous drainage. No vesicular lesions. No vaginal discharge. Normal introitus. At this point I do not believe incision and drainage is indicated as I do not believe there is enough purulence to be expressed. There is some overlying warmth. It is difficult to ascertain if she has any erythema because of her dark skin. At this point my plan is to start the patient on Keflex. Warm soaks and sitz baths. She has a follow-up appointment with her administration manager tomorrow who will reexamine the area. She is stable for discharge home. She was informed on when to return to the emergency department. She verbalizes understanding and agreement with plan. Diagnosis Primary Impression: Labial infection Referrals: Robotics Technician 2 days Additional Instructions: Take antibiotic as prescribed. Follow-up with your administration manager tomorrow as scheduled. Return to the emergency department for worsening symptoms or any other concerns. Scripts Cephalexin (Keflex)500 Mg [id number] Mg PO Q6H 7 Days Ref 0 Prov:Rodolfo Lr MD 12/03/16 Disposition: 01 DISCHARGE HOME Condition: Stable Rodolfo Lr MD Dec 03, 2016 23:24
[2016-12-03] MEDS ORDERED: CEPHALEXIN MONOHYDRATE 500 MG CAP PO ONE (23:30)
== END 2016-12-04 01:21 | disposition home or self-care (01) ==
LOC: NEPC 20:15
DX: O23.593 Infection of other part of genital tract in pregnancy, third trimester (principal)
CPT/HCPCS: 99282

== ENCOUNTER 2016-12-04 19:33 | Emergency (ER) | payer OTHER ==
[~2016-12-04 19:33] MED LIST changes: +CEPH-460 PO; -MACR100C2 PO; -NIFE30TA61 PO
--- NOTE | 2016-12-04 20:29 | PD ---
HPI Travel History International Travel<30 Days: No Contact w/Intl Traveler<30Days: No Known Affected Area: No History of Present Illness HPI This patient is a 20-year-old 3 para 1011 EDC is January 15, 2017 presently at 34 weeks gestation she presents with a chief complaint of a cyst in the vaginal area that has increased in size and is very painful The patient states that she shaved about 2 weeks ago then noticed a hair bump in the vaginal area it slowly increased in size she was seen in the emergency room last night where she was placed on Keflex and told to treat with sitz baths at least twice a day it did not help and it got more painful and increased in size and she presents with the chief complaint of pain in that area No rupture of membranes no vaginal bleeding no contractions the baby is active care with Christa Dunbar course is significant for urinary tract infection patient is presently on Keflex 500 mg by mouth 3 times a day History Past Medical History Narrative Medical No known drug allergies no major medical problems Obstetric History Obstetric History First baby born September [birth year], 2014 male weight 7 lbs. 3 oz. vaginal delivery uncomplicated Spontaneous AB 1 Past Surgical History Surgical History: No Previous Surgery Family History Family History: Negative Social History Alcohol Use: No Tobacco Use: No Substance Abuse: No Allergies-Medications (Allergen,Severity, Reaction): Coded Allergies: No Known Allergies (Unverified , 12/03/16) Home Meds Active Scripts Cephalexin (Keflex)500 Mg [id number] Mg PO Q6H 7 Days Ref 0 Prov:Rodolfo Lr MD 12/03/16 Discontinued Scripts Nitrofurantoin Monohydrate Macrocrystals (Macrobid)100 Mg [id number] Mg PO BID #14 CAP Ref 0 Prov:Terell Olson MD R2 11/25/16 Nifedipine ER 24 HR 30 Mg Tab30 Mg PO DAILY #30 TAB Ref 10 Prov:Matthieu Faust II, MD 10/22/16 Nitrofurantoin Monohydrate Macrocrystals (Macrobid)100 Mg [id number] Mg PO BID #14 CAP Ref 0 Prov:Joseph Carr MD R1 10/22/16 Review of Systems Genitourinary: Other (cyst on the left labia majora consistent with an infected hair follicle fluctuant in nature with induration around the fluctuant mouth) Physical Exam Narrative GENERAL: Well-nourished, well-developed patient. Alert oriented 3 and cooperative in moderate amount of pain secondary to the cystic area CARDIOVASCULAR: Regular rate and rhythm without murmurs, gallops, or rubs. RESPIRATORY: Breath sounds equal bilaterally. No accessory muscle use. ABDOMEN/GI: Gravid consistent with stated gestational age soft nontender no palpable contractions Gravid to [-] weeks size 34 Fundal Height: [-] GENITOURINARY: External Genitalia: On the left labia majora there is small hair follicle cyst which is fluctuant she has about a 2 cm radius diameter of induration around this area Membranes: [intact Uterine Contractions: [-]0 FHT's: Category: [-] 1 Baseline: [-] 130 Reactive: [-] + With accelerations up to 150 Variability: [-] Moderate nnec-pb-eakj variability Decels: [-] 0 NEUROLOGICAL: Awake and alert. Motor and sensory grossly within normal limits. Five out of 5 muscle strength in all muscle groups. Normal speech. Data Data Vital Signs Reviewed: Yes (blood pressure 115/73 temperature is 98.1 pulse is 103) Labs Procedure note; procedure indications and complications discussed with the patient consent forms signed and witnessed the patient placed in the lithotomy position exposure of the area it was prepped and draped with Betadine and sterile towels exposing the area numbed with approximately 2-3 cc of lidocaine 1 small 1 cm incision over the most fluctuant area of the cysts in size with a copious amount of pus draining from the incision. Cultures for general bacteria as well as MRSA were obtained no active bleeding warm moist pad placed over the area after adequate monitoring the patient will be discharged home there is no active bleeding MDM Medical Record Reviewed: Yes (previous visits reviewed pink card reviewed) Interpretation(s) 20-year-old at 34 weeks Not in labor Left labial hair follicle cyst infected Status post I & D under sterile conditions Category 1 tracing Narrative Course / MDM Patient feeling much better where as the pain was previously 9 on a 10 scale presently 1-2 Category 1 tracing baby is very active Occasional Boyle Cota Cervix unchanged from the previous visit We'll discharge patient home Warm pads to the area 3-4 times per day kick counts Follow-up with Christa Dunbar in 24-48 hours Patient is to continue the Keflex Plan After adequate monitoring the patient will be discharged home She is to continue the by mouth Keflex as written Warm moist cloths to the area 3-4 times per day Tylenol when necessary for pain Follow-up with Christa Dunbar in 24-48 hour kick count Diagnosis Diagnosis: Primary Impression: Labial cyst Additional Impression: 34 weeks gestation of Disposition: 01 DISCHARGE HOME Condition: Stable Loli Michaels MD Dec 04, 2016 20:29
== END 2016-12-04 21:42 | disposition home or self-care (01) ==
LOC: HOBED 19:33
DX: O26.893 Other specified pregnancy related conditions, third trimester (principal); N90.7 Vulvar cyst; Z3A.34 34 weeks gestation of pregnancy
CPT/HCPCS: 59025; 86403; 87070; 87081

== ENCOUNTER 2016-12-18 07:22 | Emergency (ER) | payer OTHER ==
--- NOTE | 2016-12-18 08:29 | PD ---
HPI Chief Complaint Contractions Date Seen: Dec 18, 2016 Time Seen: 08:05 Travel History International Travel<30 Days: No Contact w/Intl Traveler<30Days: No Known Affected Area: No History of Present Illness HPI 21 year old at 36/0 weeks gestation presents to the OB ED with complaints of contractions beginning this morning. She states she had contractions from about 01:30 to 02:00 today and then started having contractions again at 05:30. She states the contractions have been occurring about every 3-5 minutes, not increasing in intensity. Denies any loss of fluid, no vaginal bleeding. Reports +FM. She states that since her contractions have started since 05:30 she has had frequent urination. Denies dysuria or hematuria. She has no other complaints or concerns. Para: 1 : 3 History Past Medical History Narrative Medical No significant medical problems Multiple UTIs throughout this current all treated with antibiotics Obstetric History Obstetric History First baby born September [birth year], 2014 male weight 7 lbs. 3 oz. vaginal delivery uncomplicated Spontaneous AB 1 Past Surgical History Surgical History: No Previous Surgery Family History Family History: Negative Social History Alcohol Use: No Tobacco Use: No Substance Abuse: No Allergies-Medications (Allergen,Severity, Reaction): Coded Allergies: No Known Allergies (Unverified , 12/03/16) Home Meds Active Scripts Cephalexin (Keflex)500 Mg [id number] Mg PO Q6H 7 Days Ref 0 Prov:Rodolfo Lr MD 12/03/16 Review of Systems Except as stated in HPI: all other systems reviewed are Neg Physical Exam Narrative GENERAL: Well-nourished, well-developed patient. SKIN: Warm and dry. HEAD: Normocephalic and atraumatic. EYES: No scleral icterus. No injection or drainage. ENT: No nasal drainage noted. Mucous membranes pink. Airway patent. NECK: Supple, trachea midline. No JVD. CARDIOVASCULAR: Regular rate and rhythm without murmurs, gallops, or rubs. RESPIRATORY: Breath sounds equal bilaterally. No accessory muscle use. ABDOMEN/GI: Abdomen soft, non-tender, bowel sounds present, no rebound, no guarding Gravid to 36 weeks size GENITOURINARY: External Genitalia: intact and normal in appearance Cervix: posterior Dilatation: 2-3cm Effacement: 30% Station: -2 Presentation: vertex Membranes: intact Uterine Contractions: Irregular FHT's: Category: I Baseline: 130s Reactive: yes Variability: mod Decels: none EXTREMITIES: No cyanosis or edema. BACK: Nontender without obvious deformity. NEUROLOGICAL: Awake and alert. Motor and sensory grossly within normal limits. Normal speech. Data Data Vital Signs Reviewed: Yes Orders Vital Signs (Adult) .ON ADMISSION (12/18/16 08:15) ^ Labor Status (12/18/16 08:15) Urinalysis - C+S If Indicated (12/18/16 08:15) [facility] Medical Record Reviewed: Yes Plan 21 year old at 36/0 weeks gestation presents to OB ED with complaints of contractions beginning this morning. 1. IUP, false labor - Category I tracing, reassuring - Irregular contractions on tocometer - Cervix: 2-3/30%/-2, membranes intact, vertex - GBS not yet obtained, will follow up with OB provider - Will discharge home, counseled patient on signs of active labor and when to present - Follow up with OB provider for next routine OB visit 2. Frequent Urination - UA with large LE, no nitrites, 6 WBCs, rare bacteria, culture not indicated - Encouraged continued oral hydration dw Dr. Siddiqi Diagnosis Diagnosis: Primary Impression: Intrauterine Disposition: DISCHARGE HOME Condition: Stable Ez Mahajan MD R1 Dec 18, 2016 08:28
[2016-12-18 08:35] LABS: BACTERIA, URINE RARE /hpf; BLOOD, URINE NEG (NEG); COMMENT (UR) CULT NOT INDICATED; CULTURE IF INDICATED CULT NOT INDICATED; GLUCOSE,URINE NEG (NEG); KETONE, URINE NEG (NEG); MUCUS URINE FEW /lpf (OCC); NITRITE,URINE NEG (NEG); PH, URINE 6.5 (5.0-8.5); SQUAMOUS EPITHELIAL CELL URINE 18 /hpf (0-5); URINE COLOR LIGHT-YELLOW (YELLW/STRAW)
== END 2016-12-18 09:00 | disposition home or self-care (01) ==
LOC: HOBED 07:22
DX: O47.03 False labor before 37 completed weeks of gestation, third trimester (principal); Z3A.36 36 weeks gestation of pregnancy
CPT/HCPCS: 59025; 81001

== ENCOUNTER 2017-01-03 09:28 | Emergency (ER) | payer OTHER ==
[2017-01-03 09:55] VITALS: BP 123/68; PULSE 108
[2017-01-03] MEDS ORDERED: LACTATED RINGER'S 1000 ML INJ 1,000 ML IV ONE (10:00)
--- NOTE | 2017-01-03 10:08 | PD ---
HPI Chief Complaint Contractions Date Seen: Jan 03, 2017 Time Seen: 09:45 (Yousif Robbins MD R2) Travel History International Travel<30 Days: No Contact w/Intl Traveler<30Days: No Known Affected Area: No (Yousif Robbisn MD R2) History of Present Illness HPI 21 year old at 38/2 weeks gestation presents to the OB ED with complaints of contractions that started last night around 11 PM. She will leave the contractions are occurring every 3 minutes, she describes them as pressure in her belly and pelvic pressure as well as some back pain. She denies any vaginal bleeding or gush of fluid, but she feels that her vaginal discharge has increased some slightly. She thinks that her hands and feet swelling has worsened some over the last week. She denies any headache or blurry vision but is complaining of some right upper quadrant pain. She is a little anxious and her blood pressure was elevated at 146/78. Otherwise she has no other complaints at this time. Para: 1 : 3 Miscarriage: 1 (Yousif Robbins MD R2) History Past Medical History Narrative Medical No significant medical problems Multiple UTIs throughout this current all treated with antibiotics ( Yousif Robbins MD R2) Obstetric History Obstetric History First baby born September [birth year], 2014 male weight 7 lbs. 3 oz. vaginal delivery uncomplicated Spontaneous AB 1 (Yousif Robbins MD R2) Past Surgical History Surgical History: No Previous Surgery (Yousif Robbins MD R2) Family History Family History: Negative (Yousif Robbins MD R2) Social History Alcohol Use: No Tobacco Use: No Substance Abuse: No (Yousif Robbins MD R2) Allergies-Medications (Allergen,Severity, Reaction): Coded Allergies: No Known Allergies (Unverified , 01/03/17) Home Meds Discontinued Scripts Cephalexin (Keflex)500 Mg [id number] Mg PO Q6H 7 Days Ref 0 Prov:Rodolfo Lr MD 12/03/16 Review of Systems General / Constitutional: Weight Gain, No: Fever, Weight Loss, Chills Eyes: No: Diploplia, Blurred Vision, Visual changes HENT: No: Headaches, Lightheadedness Cardiovascular: No: Irregular Rhythm, Chest Pain or Discomfort Respiratory: No: Cough, Short of Breath, Wheezing Gastrointestinal: Nausea, Vomiting, Abdominal Pain, No: Diarrhea, Constipation , Loss of Appetite Genitourinary: Pelvic Pain, No: Urgency, Dysuria, Hematuria, Vaginal Bleeding Musculoskeletal: Edema, No: Weakness Skin: No Rash, No Itching Neurologic: No: Weakness, Headache, Seizures Psychiatric: Anxiety, No: Depression (Yousif Robbins MD R2) Physical Exam Narrative GENERAL: Well-nourished, well-developed patient. SKIN: Warm and dry. HEAD: Normocephalic and atraumatic. EYES: No scleral icterus. No injection or drainage. ENT: No nasal drainage noted. Mucous membranes pink. Airway patent. NECK: Supple, trachea midline. No JVD. CARDIOVASCULAR: Regular rate and rhythm without murmurs, gallops, or rubs. RESPIRATORY: Breath sounds equal bilaterally. No accessory muscle use. ABDOMEN/GI: Abdomen soft, non-tender, bowel sounds present, no rebound, no guarding Gravid to 38 weeks size Fundal Height: 38 GENITOURINARY: External Genitalia: intact and normal in appearance Cervix: thick Dilatation: 2 Effacement: 20 Station: -3 Presentation: vertex Membranes: Intact Uterine Contractions: Weak contractions every 2-3 minutes FHT's: Category: 1 Baseline: 130 Reactive: Up to 160 Variability: Moderate Decels: None EXTREMITIES: No cyanosis or edema. BACK: Nontender without obvious deformity. No CVA tenderness. NEUROLOGICAL: Awake and alert. Motor and sensory grossly within normal limits. Normal speech. (Yousif Robbins MD R2) Data Data Vital Signs Reviewed: Yes Orders Vital Signs (Adult) .ON ADMISSION (01/03/17 09:52) ^ Labor Status (01/03/17 09:52) Urinalysis - C+S If Indicated (01/03/17 09:52) ^ Hydration (01/03/17 09:52) Cbc No Diff, Includes Plts (01/03/17 09:52) Comprehensive Metabolic Panel (01/03/17 09:52) Uric Acid (01/03/17 09:52) (Yousif Robbins MD R2) MDM Medical Record Reviewed: Yes Narrative Course / MDM 21 year old at 38/2 weeks gestation presents to the OB ED with complaints of contractions and elevated blood pressure Plan 1. Intrauterine : GBS unknown, patient of Antonio Treviño -Continuous heart tracing: Category 1 -Continuous monitoring for contractions: Weak every 3 minutes -IV hydration -Continue care -Contractions stopped with IV fluids, plan to DC home 2. Hypertension: 146/73 -Monitor vitals, next Blood pressure 123/68 -UA: culture not indicated -Uric acid: 4.8 -CBC: wnl -CMP: wnl WDW: OB Hospitalist (Yousif Robbins MD R2) Plan 21y/o presented to [facility] to r/o labor, BP evaluation normal and normal labs. No evidence of labor, labor precatuiosn. FHR reassuring, reactive NST. FKC daily. Patient seen and evaluated with resident. Agree. (Marilyn Jones MD) Diagnosis Diagnosis: Primary Impression: Antonio Cota' contraction Disposition: 01 DISCHARGE HOME Condition: Stable Patient Instructions: Early Labor Signs (ED) Yousif Robbins MD R2 Jan 03, 2017 10:08 Marilyn Jones MD Jan 03, 2017 16:11
[2017-01-03 10:20] LABS: HEMATOCRIT 27.9 % (35.0-46.0); MEAN CELL VOLUME 79.5 FL (80.0-100.0); MEAN CORPUSCULAR HEMOGLOBIN 27.5 PG (27.0-34.0); MEAN CORPUSCULAR HGB CONC 34.6 % (32.0-36.0); PLATELET COUNT 371 TH/MM3 (150-450); RED BLOOD COUNT 3.51 MIL/MM3 (4.00-5.30); RED CELL DISTRIBUTION WIDTH 13.8 % (11.6-17.2); REVIEW FLAG FINAL; WHITE BLOOD COUNT 9.3 TH/MM3 (4.0-11.0)
[2017-01-03 10:21] LABS: BACTERIA, URINE RARE /hpf; BLOOD, URINE NEG (NEG); GLUCOSE,URINE NEG (NEG); KETONE, URINE NEG (NEG); MUCUS URINE FEW /lpf (OCC); NITRITE,URINE NEG (NEG); PH, URINE 6.5 (5.0-8.5); SQUAMOUS EPITHELIAL CELL URINE 15 /hpf (0-5); URINE COLOR YELLOW (YELLW/STRAW)
[2017-01-03 10:25] LABS: COMMENT (UR) CULT NOT INDICATED; CULTURE IF INDICATED CULT NOT INDICATED
[2017-01-03 10:31] LABS: ALT (GPT) 13 U/L (10-53); ANION GAP 9 MEQ/L (5-15); AST (GOT) 11 U/L (15-37); BICARBONATE 21.1 MEQ/L (21.0-32.0); BLOOD UREA NITROGEN 6 MG/DL (7-18); CHLORIDE 110 MEQ/L (98-107); GLOMERULAR FILTRATION RATE 147 ML/MIN (>89); POTASSIUM 3.6 MEQ/L (3.5-5.1); SODIUM (NA) 140 MEQ/L (136-145); URIC ACID 4.8 MG/DL (2.6-6.0)
[2017-01-03 10:33] LABS: ALKALINE PHOSPHATASE 126 U/L (45-117); TOTAL BILIRUBIN ADULT 0.3 MG/DL (0.2-1.0)
[2017-01-03 10:39] VITALS: BP 127/73; PULSE 74
== END 2017-01-03 10:55 | disposition home or self-care (01) ==
LOC: HOBED 09:28
DX: O47.1 False labor at or after 37 completed weeks of gestation (principal); O16.3 Unspecified maternal hypertension, third trimester; Z3A.38 38 weeks gestation of pregnancy
CPT/HCPCS: 59025; 80053; 81001; 84550; 85027; 96360; 99284; J7120

== ENCOUNTER 2017-01-07 18:55 | Inpatient (IN) | payer OTHER ==
[~2017-01-07] VITALS: Ht 152.4 cm; Wt 81.2 kg
[2017-01-07] MEDS ORDERED: LACTATED RINGER'S 1000 ML INJ 1,000 ML IV PRN (20:25)
--- NOTE | 2017-01-07 20:25 | PD ---
HPI Chief Complaint High blood pressure in the office today Date Seen: Jan 07, 2017 Time Seen: 20:16 Travel History International Travel<30 Days: No Contact w/Intl Traveler<30Days: No Known Affected Area: No History of Present Illness HPI 21-year-old female who is at 38 weeks and 6 days based on an CONSTANCE of January 03, 2017. She's had an uncomplicated but was seen last week for false labor here in the OB ED and found to have mildly elevated blood pressure. Workup for -induced hypertension was normal. Blood pressure in the office today was 180/100. Her group B strep was negative. Patient denies PIH symptoms but complains of mild lower extremity edema Para: 1 : 3 Miscarriage: 1 History Past Medical History Medical History: Denies Significant Hx Obstetric History Obstetric History Spontaneous vaginal delivery baby was 7 lbs. 3 oz. Past Surgical History Surgical History: No Previous Surgery Family History Family History: Negative Social History Alcohol Use: No Tobacco Use: No Substance Abuse: No Allergies-Medications (Allergen,Severity, Reaction): Coded Allergies: No Known Allergies (Unverified , 01/03/17) Home Meds Discontinued Scripts Cephalexin (Keflex)500 Mg [id number] Mg PO Q6H 7 Days Ref 0 Prov:Rodolfo Lr MD 12/03/16 Review of Systems Except as stated in HPI: all other systems reviewed are Neg Physical Exam Narrative GENERAL: Well-nourished, well-developed patient. SKIN: Warm and dry. HEAD: Normocephalic and atraumatic. EYES: No scleral icterus. No injection or drainage. ENT: No nasal drainage noted. Mucous membranes pink. Airway patent. NECK: Supple, trachea midline. No JVD. CARDIOVASCULAR: Regular rate and rhythm without murmurs, gallops, or rubs. RESPIRATORY: Breath sounds equal bilaterally. No accessory muscle use. BREASTS: Bilateral exam showed no masses , no retractions, no nipple discharge. ABDOMEN/GI: Abdomen soft, non-tender, bowel sounds present, no rebound, no guarding Gravid to [38-] weeks size Fundal Height: [-] GENITOURINARY: External Genitalia: intact and normal in appearance BUS glands: [-Normal] Cervix: [Posterior-] Dilatation: 1-2 Effacement: 50 Station: -3 Presentation: Vertex Membranes: Intact Uterine Contractions: Absent FHT's: Category: [-1] Baseline: 140 Reactive: Moderate Variability: Moderate with accelerations Decels: Absent EXTREMITIES: No cyanosis or edema. BACK: Nontender without obvious deformity. No CVA tenderness. NEUROLOGICAL: Awake and alert. Motor and sensory grossly within normal limits. Five out of 5 muscle strength in all muscle groups. Normal speech. Data Data Vital Signs Reviewed: No Labs Blood pressures 139/80, 147/99, 157/99 MDM Plan 21-year-old female who is at 38 weeks and 6 days with hypertension in . Will admit for induction of labor, order PIH labs. Diagnosis Diagnosis: Primary Impression: 38 weeks gestation of Additional Impressions: Gestational hypertension Gestational hypertension w/o significant proteinuria in 3rd trimester Janette Velázquez MD Jan 07, 2017 20:25
[2017-01-07] MEDS ORDERED: MINERAL OIL 10 ML VIAL TOPICAL PRN (20:30)
[2017-01-07] MEDS ORDERED: LIDOCAINE HCL 1% 50 ML VIAL I-DERMAL PRN (20:30)
[2017-01-07] MEDS ORDERED: ONDANSETRON HCL 4 MG/2 ML VIAL IV PRN (20:30)
[2017-01-07] MEDS ORDERED: OXYTOCIN 30 UNITS-500ML PREMIX 500 ML IV ONE (20:30)
[2017-01-07] MEDS ORDERED: LIDOCAINE HCL 1% 50 ML VIAL INFIL PRN (20:30)
[2017-01-07] MEDS ORDERED: SODIUM CHLORID 0.9% 500 ML INJ 500 ML IV PRN (20:30)
[2017-01-07] MEDS ORDERED: CITRIC ACID-SODIUM CITRATE LIQ 30 ML UDC PO SCH (20:30)
[2017-01-07 20:33] VITALS: BP 157/100; PULSE 107; RESP 18; TEMP 98.9
[2017-01-07] MEDS ORDERED: SODIUM CHLOR 0.9% 1000 ML INJ 1,000 ML IV PRN (20:45)
[2017-01-07 20:56] LABS: BACTERIA, URINE RARE /hpf; BLOOD, URINE NEG (NEG); COMMENT (UR) CULT NOT INDICATED; CULTURE IF INDICATED CULT NOT INDICATED; GLUCOSE,URINE NEG (NEG); KETONE, URINE NEG (NEG); NITRITE,URINE NEG (NEG); SQUAMOUS EPITHELIAL CELL URINE 2 /hpf (0-5); URINE COLOR LIGHT-YELLOW (YELLW/STRAW)
[2017-01-07 21:32] VITALS: BP 152/90; PULSE 93; RESP 18
[2017-01-07 21:37] LABS: AUTOMATED NEUTROPHIL # 5.5 TH/MM3 (1.8-7.7); BASOPHIL % 0.4 % (0.0-2.0); EOSINOPHIL # 0.1 TH/MM3 (0-0.4); EOSINOPHIL % 0.6 % (0.0-4.0); HEMATOCRIT 28.3 % (35.0-46.0); HEMO FLAGS DIFF FINAL; LYMPH % 29.3 % (9.0-44.0); LYMPHOCYTE # 2.6 TH/MM3 (1.0-4.8); MEAN CELL VOLUME 79.5 FL (80.0-100.0); MEAN CORPUSCULAR HEMOGLOBIN 27.1 PG (27.0-34.0); MEAN CORPUSCULAR HGB CONC 34.1 % (32.0-36.0); MONO % 8.9 % (0.0-8.0); NEUT % 60.8 % (16.0-70.0); PLATELET COUNT 357 TH/MM3 (150-450); RED BLOOD COUNT 3.56 MIL/MM3 (4.00-5.30); RED CELL DISTRIBUTION WIDTH 14.2 % (11.6-17.2); REVIEW FLAG FINAL
[2017-01-07 22:00] LABS: BICARBONATE 22.8 MEQ/L (21.0-32.0); POTASSIUM 3.6 MEQ/L (3.5-5.1)
[2017-01-07] MEDS: MISOPROSTOL 25 MCG SUPP VAGINAL SCH (22:24)
[2017-01-07] MEDS: LACTATED RINGER'S 1000 ML INJ 1,000 ML IV SCH (22:24)
[2017-01-07 22:26] VITALS: BP 164/90; PULSE 83; RESP 18
[2017-01-07 23:05] VITALS: RESP 18
[2017-01-07 23:06] VITALS: BP 133/84; PULSE 81
[2017-01-08] VITALS (43 sets, daily range): BP systolic 109–157; BP diastolic 56–103; PULSE 18–126; RESP 16–20; TEMP 98–98.6; O2SAT 99–100
[2017-01-08] MEDS ORDERED: MISOPROSTOL 25 MCG SUPP VAGINAL PRN (00:30)
[2017-01-08] MEDS: MISOPROSTOL 25 MCG SUPP VAGINAL SCH ×4 (02:30→15:45)
--- NOTE | 2017-01-08 08:55 | PD.LABORPN ---
Subjective Subjective Patient is status post Cytotec last night induced due to hypertension at term Category 1 heart rate tracing with a baseline of 145 noted no decelerations are noted, moderate variability. Cervix is 6/80/-2, assisted rupture membranes with copious clear fluid was obtained We'll continue induction and start Pitocin augmentation if necessary Objective Vital Signs Vital Signs Date Time Temp Pulse Resp B/P Pulse Ox O2 Delivery O2 Flow Rate FiO2 01/08/17 07:15 98.3 01/08/17 07:15 98 18 138/93 01/08/17 05:33 18 01/08/17 05:32 78 126/75 01/08/17 04:34 123/80 01/08/17 04:34 91 01/08/17 04:33 18 01/08/17 03:33 80 125/63 01/08/17 03:32 18 01/08/17 02:02 65 154/77 01/08/17 02:01 18 Objective Pelvic Exam: Cervix: [-] Dilatation: [-] Effacement: [-] Station: [-] Presentation: [-] Membranes: [intact or ruptured] Uterine Contractions: [-] FHT's: Category: [-] Baseline: [-] Reactive: [-] Variability: [-] Decels: [-] Janette Velázquez MD Jan 08, 2017 08:55
[2017-01-08] MEDS: LACTATED RINGER'S 1000 ML INJ 1,000 ML IV SCH (11:44)
[2017-01-08] MEDS ORDERED: OXYTOCIN 30 UNITS-500ML PREMIX 500 ML IV SCH (12:45)
[2017-01-08] MEDS ORDERED: fentaNYL 2MCG-BUPIV 0.125% INJ 100 ML ONE (15:00)
[2017-01-08] MEDS ORDERED: DIPHTH/TETANUS/ACEL PERTUSSIS (BOOSTER) 0.5 ML VIAL/PFS IM ONE (16:00)
[2017-01-08] MEDS ORDERED: MEASLES, MUMPS, RUBELLA VACCINE 0.5 ML VIAL SQ ONE (16:00)
--- NOTE | 2017-01-08 17:09 | PD.OB.DELI ---
Delivery Date: Jan 08, 2017 Anesthesia: Epidural Episiotomy: None Vaginal Delivery: Normal Presentation: Occiput anterior Nuchal Cord: x1, Other (cord around body) Delayed cord clamping (45 sec): No Infant: Male One Minute : 8 Five Minute : 9 Weight: 3015g Infant Care: Suctioned, Spontaneous crying, Responded to stimulation Placenta: Spontaneous delivery, Intact Laceration: No lacerations Additional Information Uncomplicated delivery performed by Dr. Espitia. Supervised by Dr. Faust. Mom and baby are doing well. Denise Espitia MD R1 Jan 08, 2017 17:09
[2017-01-08] MEDS ORDERED: ACETAMINOPHEN 325 MG TAB PO PRN (17:30)
[2017-01-08] MEDS ORDERED: BENZOCAINE 20% TOPICAL SPRAY 60 ML CAN TOPICAL PRN (17:30)
[2017-01-08] MEDS ORDERED: oxyCODONE/ACETAMINOPHEN 5 MG/325 MG TAB PO PRN (17:30)
[2017-01-08] MEDS ORDERED: ALUMINUM/MAGNESIUM/SIMETH 30 ML CUP PO PRN (17:30)
[2017-01-08] MEDS ORDERED: ONDANSETRON ODT 4 MG TAB PO PRN (17:30)
[2017-01-08] MEDS ORDERED: ZOLPIDEM TARTRATE 5 MG TAB PO PRN (17:30)
[2017-01-08] MEDS ORDERED: DOCUSATE SODIUM 50 MG/SENNA 8.6 MG TAB PO PRN (17:30)
[2017-01-08] MEDS ORDERED: SODIUM CHLORIDE 0.9% FLUSH 10 ML FLUSH IV FLUSH PRN (17:30)
[2017-01-08] MEDS ORDERED: WITCH HAZEL 50%/GLYCERIN 12.5% 40 PAD JAR TOPICAL PRN (17:30)
[2017-01-08] MEDS ORDERED: SODIUM CHLORIDE 0.9% FLUSH 10 ML FLUSH IV FLUSH SCH (21:00)
[2017-01-08] MEDS: IBUPROFEN 600 MG TAB PO PRN (22:45)
[2017-01-09 08:00] VITALS: BP 122/59; PULSE 81; RESP 20; TEMP 97.8; O2SAT 97
--- NOTE | 2017-01-09 08:19 | HHI.OB ---
Subjective Post Day: 1 Remarks Ms. Contreras is a 21 yo who is PPD 1 from (01/08 at 1656). Patient was afebrile with mild hypertension overnight (systolic blood pressures between [id number]. Patient does not report complaints this morning. Patient reports mild vaginal bleeding. Mild/moderate abdominal pain. Patient states that she is ambulating well. Patient reports mild soreness when using the bathroom but denies dysuria. Patient denies shortness of breath and leg swelling. Patient passing gas normally. Patient is breast and bottle feeding infant. Objective Vitals/I&O Vital Signs Date Time Temp Pulse Resp B/P Pulse Ox O2 Delivery O2 Flow Rate FiO2 01/08/17 23:00 18 01/08/17 23:00 66 136/78 01/08/17 20:00 142/86 01/08/17 20:00 98.6 85 20 01/08/17 19:10 98.4 18 01/08/17 18:25 18 01/08/17 18:15 75 150/86 01/08/17 18:05 18 01/08/17 18:00 74 134/96 01/08/17 17:55 18 01/08/17 17:45 70 144/95 01/08/17 17:31 16 01/08/17 17:31 16 01/08/17 17:30 85 150/93 01/08/17 17:30 85 150/93 01/08/17 17:23 18 01/08/17 17:15 90 149/92 01/08/17 17:09 18 01/08/17 17:09 93 129/85 01/08/17 16:45 80 155/97 01/08/17 16:15 67 116/61 01/08/17 16:01 76 121/64 01/08/17 16:00 87 01/08/17 16:00 100 01/08/17 15:55 79 01/08/17 15:55 100 01/08/17 15:50 78 01/08/17 15:50 100 01/08/17 15:45 100 01/08/17 15:45 85 01/08/17 15:45 76 134/82 01/08/17 15:40 100 01/08/17 15:40 77 147/82 01/08/17 15:40 83 01/08/17 15:35 99 01/08/17 15:35 93 151/71 01/08/17 15:35 111 01/08/17 15:34 93 142/90 01/08/17 15:30 98.0 18 01/08/17 15:27 126 157/103 01/08/17 13:15 98.3 01/08/17 13:03 69 109/56 01/08/17 11:53 98.3 01/08/17 11:51 77 143/82 01/08/17 10:12 98.3 18 18 01/08/17 10:03 98 136/93 Objective Remarks GENERAL: Well-nourished, well-developed patient. CARDIOVASCULAR: Regular rate and rhythm without murmurs. Normal perfusion RESPIRATORY: CTAB, normal rate ABDOMEN/GI: Abdomen soft, non-tender. Fundus: Firm, non-tender at umbilicus. GENITOURINARY: Light to moderate bleeding. EXTREMITIES: No cyanosis or edema, non-tender, without signs of DVT. Medications and IVs Current Medications Medications (Trade) Dose Ordered Sig/Migdalia Route Start Time Stop Time Status Last Admin (NS Flush) 2 ml BID IV FLUSH 01/08/17 21:00 (NS Flush) 2 ml UNSCH PRN IV FLUSH 01/08/17 17:30 (Tylenol) 650 mg Q4H PRN PO 01/08/17 17:30 (Motrin) 600 mg Q6H PRN PO 01/08/17 17:30 01/08/17 22:45 (Percocet 5-325 Mg) 1 tab Q4H PRN PO 01/08/17 17:30 (Americaine 20% Top Spr) 1 spray Q4H PRN TOPICAL 01/08/17 17:30 (Tucks Pads) 1 applic QID PRN TOPICAL 01/08/17 17:30 (Deanna-Colace) 2 tab Q12H PRN PO 01/08/17 17:30 (Ambien) 5 mg HS PRN PO 01/08/17 17:30 (Mag-Al Plus Susp Liq) 15 ml Q8H PRN PO 01/08/17 17:30 (Zofran Odt) 4 mg Q6H PRN PO 01/08/17 17:30 Assessment/Plan Problem List: (1) Gestational hypertension (2) care and examination Assessment and Plan 21 yo who is PPD 1 from (4/5 at 1656). -Continue Percocet, Motrin for pain control -Continue to encourage ambulation -Continue to monitor vaginal bleeding -Continue to assist with breast feeding -Gestational Hypertension Impression: Mild systolic BP elevations </= 150mmHg. -Continue to monitor VS Jamin Valera MD R2 Jan 09, 2017 08:19
[2017-01-09] MEDS: IBUPROFEN 600 MG TAB PO PRN ×2 (08:43→15:17)
[2017-01-09 19:30] VITALS: BP 152/81; PULSE 65; RESP 18; TEMP 98
--- NOTE | 2017-01-10 07:14 | HHI.OB ---
Subjective Post Day: 2 Remarks AFVSS overnight. Doing well. Decreased lochia - almost less than a period. She plans to breast feed. Appetite good. No nausea or vomiting. Positive flatus. No bowel movement. Ambulating well. Denies calf pain, shortness of breath, or cough. Otherwise, she is doing well this morning and has no other complaints. ( Eko,Denise U R1) Objective Vitals/I&O Vital Signs Date Time Temp Pulse Resp B/P Pulse Ox O2 Delivery O2 Flow Rate FiO2 01/09/17 19:30 98.0 65 18 152/81 01/09/17 08:00 97.8 81 20 122/59 97 Objective Remarks GENERAL: Well-nourished, well-developed patient. CARDIOVASCULAR: Regular rate and rhythm without murmurs. Normal perfusion RESPIRATORY: CTAB, normal rate ABDOMEN/GI: Abdomen soft, non-tender. Fundus: Firm, non-tender at umbilicus. GENITOURINARY: Light to moderate bleeding. EXTREMITIES: No cyanosis or edema, non-tender, without signs of DVT. Medications and IVs Current Medications Medications (Trade) Dose Ordered Sig/Migdalia Route Start Time Stop Time Status Last Admin (NS Flush) 2 ml BID IV FLUSH 01/08/17 21:00 (NS Flush) 2 ml UNSCH PRN IV FLUSH 01/08/17 17:30 (Tylenol) 650 mg Q4H PRN PO 01/08/17 17:30 (Motrin) 600 mg Q6H PRN PO 01/08/17 17:30 01/09/17 15:17 (Percocet 5-325 Mg) 1 tab Q4H PRN PO 01/08/17 17:30 01/10/17 01:13 (Americaine 20% Top Spr) 1 spray Q4H PRN TOPICAL 01/08/17 17:30 (Tucks Pads) 1 applic QID PRN TOPICAL 01/08/17 17:30 (Deanna-Colace) 2 tab Q12H PRN PO 01/08/17 17:30 (Ambien) 5 mg HS PRN PO 01/08/17 17:30 (Mag-Al Plus Susp Liq) 15 ml Q8H PRN PO 01/08/17 17:30 (Zofran Odt) 4 mg Q6H PRN PO 01/08/17 17:30 (Denise Espitia MD R1) Assessment/Plan Problem List: (1) Gestational hypertension (2) care and examination Assessment and Plan 21 yo who is PPD 2 from (01/08 at 1656). -Continue routine care -Motrin and Percocet PRN for pain -Pericolase PRN for constipation -Encouraged OOB. Advised pelvic rest for 6 wks -Patient will need to see her PCP for blood pressure check in 2 weeks -Will need a follow-up appointment within 6 wks -Patient does not plan on control Discussed with Dr. Velázquez Discharge Planning Discharge home today (Denise Espitia MD R1) Collaborating MD Comments Agree with discharge plans, pt seen and care reviewed with resident. (Janette Velázquez MD) Denise Espitia MD R1 Jan 10, 2017 07:14 Janette Velázquez MD Jan 14, 2017 10:51
--- NOTE | 2017-01-10 07:18 | HHI.DCPOC ---
Discharge Care Plan Diagnosis: (1) Genitourinary tract infection during in third trimester (2) Vaginal delivery Report Symptoms to Your Doctor -Temperate above 100.5 degrees -Redness, of incision or excessive or foul smelling drainage -Unusual pain or calf pain -Increased vaginal bleeding -Painful or difficulty urinating -Feelings of extreme sadness or anxiety after 2 weeks Goals to Promote Your Health * To prevent worsening of your condition and complications * To maintain your health at the optimal level Directions to Meet Your Goals Take your medications as prescribed Follow your dietary instruction Follow activity as directed Ensure plenty of rest for recovery Drink fluids for hydration Keep your appointments as scheduled Take your immunizations and boosters as scheduled If your symptoms worsen call your PCP, if no PCP go to Urgent Care Center or Emergency Room Smoking is Dangerous to Your Health. Avoid second hand smoke Call the 24-hour crisis hotline for domestic abuse at Denise Espitia MD R1 Jan 10, 2017 07:18
[2017-01-10] MEDS ORDERED: IBUP-232 PO (07:22)
[2017-01-10 08:00] VITALS: BP 145/72; PULSE 70; RESP 18; TEMP 98.7
== END 2017-01-10 11:22 | disposition home or self-care (01) | DRG 775 ==
LOC: HOBED 18:55 → H2EA 20:40 → H1EA 01-08 19:33
PROVIDERS: ADMIT Obstetrics & Gynecology Obstetrics; ATTEND Obstetrics & Gynecology Obstetrics
PROC: 10E0XZZ Delivery of Products of Conception, External Approach (ICD-10-PCS; principal; 2017-01-08)
PROC: 3E0P7GC Introduction of Other Therapeutic Substance into Female Reproductive, Via Natural or Artificial Opening (ICD-10-PCS; 2017-01-08)
DX: O13.4 Gestational [pregnancy-induced] hypertension without significant proteinuria, complicating childbirth (principal); Z37.0 Single live birth; Z3A.38 38 weeks gestation of pregnancy
CPT/HCPCS: 59025; 80048; 81001; 84450; 84550; 85025; 85027; 90715; 99285; J2405; J2590; J3010; J7120

== ENCOUNTER 2017-01-15 09:27 | Emergency (ER) | payer OTHER ==
[~2017-01-15] VITALS: Ht 152.4 cm; Wt 75.0 kg
[~2017-01-15 09:27] MED LIST changes: -CEPH-460 PO; +IBUP-232 PO
--- NOTE | 2017-01-15 10:18 | PD ---
HPI Chief Complaint Abdominal Pain Date Seen: Jan 15, 2017 (Denise Espitia MD R1) Travel History International Travel<30 Days: No Contact w/Intl Traveler<30Days: No Known Affected Area: No (Denise Espitia MD R1) History of Present Illness HPI 21-year-old status post 1 week presents to the [facility] with a chief complaint of right lower abdominal pain that began around 8:30 AM this morning. Patient states that she slept on her right side and when she tried to get up from the bed she noticed the pain in her right lower quadrant. The pain has since spread across her lower abdomen and is now mostly in her periumbilical area. She describes the pain as sharp, constant, 8/10, and excruciating. She tried one dose of ibuprofen 600 mg that she was prescribed at discharge from the hospital and it did not help. The only other symptom she reports is nausea but she is unable to vomit due to pain. She also had nausea without vomiting last night. (Denise Espitia MD) History Past Medical History Medical History: Denies Significant Hx (Denise Espitia MD) Obstetric History Obstetric History First baby born September 04, 2014 male infant weight 7 lbs. 3 oz. vaginal delivery uncomplicated Spontaneous AB 1 Patient had -induced hypertension late into her third (Denise Espitia MD) Past Surgical History Surgical History: No Previous Surgery (Denise Espitia MD) Family History Narrative Family History Both parents have hypertension (Denise Espitia MD) Social History Alcohol Use: No Tobacco Use: No Substance Abuse: No (Denise Espitia MD) Allergies-Medications (Allergen,Severity, Reaction): Coded Allergies: No Known Allergies (Unverified , 01/03/17) Home Meds Active Scripts Hydrocodone-Acetaminophen ([place])5-325 mg Tab1 Tab PO Q4H PRN (PAIN) #12 TAB Ref 0 Prov:Alethea Chow MD 01/15/17 Nitrofurantoin Monohydrate Macrocrystals (Macrobid)100 Mg [id number] Mg PO BID #14 CAP Ref 0 Prov:Alethea Chow MD 01/15/17 Ibuprofen 600 Mg [id number] Mg PO Q6H PRN ( [place]) #30 TAB Prov:Denise Espitia MD R1 01/10/17 Review of Systems General / Constitutional: No: Fever, Chills Eyes: No: Blurred Vision, Visual changes HENT: No: Headaches, Lightheadedness Cardiovascular: No: Chest Pain or Discomfort, Palpitations, Edema Respiratory: No: Cough, Short of Breath Gastrointestinal: Nausea, Abdominal Pain, No: Vomiting, Diarrhea, Constipation Genitourinary: No: Dysuria Musculoskeletal: No: Weakness, Edema Neurologic: No: Weakness, Dizziness (Deinse Espitia MD R1) Physical Exam Narrative GENERAL: Well-nourished, well-developed patient, writhing in bed and crying out in pain. SKIN: Warm and dry. HEAD: Normocephalic and atraumatic. EYES: No scleral icterus. No injection or drainage. ENT: No nasal drainage noted. Mucous membranes pink. Airway patent. NECK: Supple, trachea midline. No JVD. CARDIOVASCULAR: Tachycardic rate and irregular rhythm without murmurs, gallops, or rubs. RESPIRATORY: Breath sounds equal bilaterally. No accessory muscle use. ABDOMEN/GI: Abdomen soft, tender to light touch and light palpation with rebound tenderness and guarding, bowel sounds present EXTREMITIES: No cyanosis or edema. BACK: Nontender without obvious deformity. No CVA tenderness. NEUROLOGICAL: Awake and alert. Motor and sensory grossly within normal limits. Five out of 5 muscle strength in all muscle groups. Normal speech. (Denise Espitia MD R1) Data Data Vital Signs Reviewed: Yes Orders Urinalysis - C+S If Indicated (01/15/17 10:01) Complete Blood Count With Diff (01/15/17 10:01) Comprehensive Metabolic Panel (01/15/17 10:01) Lipase (01/15/17 10:01) (Denise Espitia MD R1) [facility] Medical Record Reviewed: Yes Interpretation(s) 21 year old status post one week vaginal delivery presents with chief complaint of right lower abdominal pain that began this morning. Patient is diffusely tender to palpation of her abdomen. Differential diagnosis includes UTI, acute appendicitis, ovarian torsion, ruptured ovarian cyst, endometritis, small bowel obstruction, acute cholecystitis, etc. Of note, her blood pressure in the OB ED was elevated at 154/93 and she has a history of elevated BP late in her which is suspicious for preeclampsia. However, her chief complaint is abdominal pain which may also contribute to her elevated blood pressure. Plan The patient was deemed to be more appropriate for evaluation in the main hospital emergency department. The charge nurse in the ED was contacted and accepted the patient. She was transferred to the main ED for evaluation (Denise Espitia MD R1) Diagnosis Diagnosis: Primary Impression: Abdominal pain Condition: Serious Scripts Hydrocodone-Acetaminophen ([place])5-325 mg Tab1 Tab PO Q4H PRN (PAIN) #12 TAB Ref 0 Prov:Alethea Chow MD 01/15/17 Nitrofurantoin Monohydrate Macrocrystals (Macrobid)100 Mg [id number] Mg PO BID #14 CAP Ref 0 Prov:Alethea Chow MD 01/15/17 Collaborating MD Comments Patient with sudden onset of pain this am in right lower quadrant and suprapubic area. Patient had mild preeclampsia with her delivery 1 week ago so this is not new onset hypertensive disease. Sent to ED due to primary symptoms as elevated bp is not new and is most likely due to pain (Janette Velázquez MD) Denise Espitia MD R1 Jan 15, 2017 10:18 Janette Velázquez MD Jan 22, 2017 00:52
[2017-01-15 10:19] VITALS: BP 172/91; PULSE 81; RESP 16; TEMP 99.4; O2SAT 100
[2017-01-15] MEDS ORDERED: SODIUM CHLORIDE 0.9% FLUSH 10 ML FLUSH IV FLUSH PRN (10:45)
[2017-01-15] MEDS ORDERED: ONDANSETRON HCL 4 MG/2 ML VIAL IVP ONE (10:45)
[2017-01-15] MEDS ORDERED: MORPHINE SULFATE 4 MG/ML INJ IV PUSH ONE (10:45)
[2017-01-15 10:46] LABS: BASOPHIL % 0.3 % (0.0-2.0); EOSINOPHIL # 0.2 TH/MM3 (0-0.4); EOSINOPHIL % 1.9 % (0.0-4.0); HEMATOCRIT 35.1 % (35.0-46.0); HEMO FLAGS DIFF FINAL; LYMPH % 17.6 % (9.0-44.0); LYMPHOCYTE # 1.7 TH/MM3 (1.0-4.8); MEAN CELL VOLUME 79.8 FL (80.0-100.0); MEAN CORPUSCULAR HEMOGLOBIN 26.1 PG (27.0-34.0); MEAN CORPUSCULAR HGB CONC 32.7 % (32.0-36.0); MONO % 7.2 % (0.0-8.0); PLATELET COUNT 400 TH/MM3 (150-450); RED CELL DISTRIBUTION WIDTH 14.1 % (11.6-17.2); WHITE BLOOD COUNT 9.6 TH/MM3 (4.0-11.0)
[2017-01-15 10:54] LABS: BACTERIA, URINE OCC /hpf; BLOOD, URINE LARGE (NEG); COMMENT (UR) CULTURE INDICATED; CULTURE IF INDICATED CULTURE INDICATED; GLUCOSE,URINE NEG (NEG); KETONE, URINE NEG (NEG); MUCUS URINE FEW /lpf (OCC); NITRITE,URINE NEG (NEG); PH, URINE 6.5 (5.0-8.5); SQUAMOUS EPITHELIAL CELL URINE 4 /hpf (0-5); URINE COLOR YELLOW (YELLW/STRAW)
[2017-01-15] MEDS ORDERED: IOHEXOL 350 MG/ML 10 ML VIAL (for RAD DIAG) IV ONE (11:08)
--- NOTE | 2017-01-15 11:25 | RADRPT ---
EXAM DATE/TIME: 01/15/2017 10:59 [facility] COMPARISON: No previous studies available for comparison. INDICATIONS : Lower pelvic pain started this morning. patient is 1 week post IV CONTRAST: 75 cc Omnipaque 350 (iohexol) IV ORAL CONTRAST: No oral contrast ingested. RADIATION DOSE: 10.42 CTDIvol (mGy) MEDICAL HISTORY : None SURGICAL HISTORY : None. ENCOUNTER: Initial ACUITY: 1 day PAIN SCALE: 8/10 LOCATION: Right lower quadrant TECHNIQUE: Volumetric scanning of the abdomen and pelvis was performed. Using automated exposure control and ad justment of the mA and/or kV according to patient size, radiation dose was kept as low as reasonably achievable to obtain optimal diagnostic quality images. FINDINGS: LOWER LUNGS: The visualized lower lungs are clear. LIVER: Homogeneous density without lesion. There is no dilation of the biliary tree. No calcified gallston es. SPLEEN: Normal size without lesion. PANCREAS: Within normal limits. KIDNEYS: Normal in size and shape. There is no mass, stone or hydronephrosis. ADRENAL GLANDS: Within normal limits. VASCULAR: There is no aortic aneurysm. BOWEL/MESENTERY: The stomach, small bowel, and colon demonstrate no acute abnormality. There is no free intraperitone al air or fluid. ABDOMINAL WALL: Mild diastasis of the rectus abdominis musculature with anterior abdominal wall ventral bulge and and small fat containing umbilical hernia. RETROPERITONEUM: There is no lymphadenopathy. BLADDER: No wall thickening or mass. REPRODUCTIVE: The uterus is prominent in size without focal mass. This is not unexpected in this patient who is rec ently . 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 INGUINAL: There is no lymphadenopathy or hernia. MUSCULOSKELETAL: Within normal limits for patient age. 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 Small umbili shalini hernia and diastasis of the rectus abdominous musculature. Shane Luo MD on January 15, 2017 at 11:21 Board Certified Radiologist. This report was verified electronically.
[2017-01-15 11:34] LABS: ALT (GPT) 17 U/L (10-53); ANION GAP 8 MEQ/L (5-15); AST (GOT) 27 U/L (15-37); BICARBONATE 23.7 MEQ/L (21.0-32.0); BLOOD UREA NITROGEN 10 MG/DL (7-18); CHLORIDE 109 MEQ/L (98-107); GLOMERULAR FILTRATION RATE 142 ML/MIN (>89); POTASSIUM 4.3 MEQ/L (3.5-5.1); SODIUM (NA) 141 MEQ/L (136-145)
[2017-01-15 11:36] LABS: ALKALINE PHOSPHATASE 116 U/L (45-117); TOTAL BILIRUBIN ADULT 0.4 MG/DL (0.2-1.0)
[2017-01-15] MEDS ORDERED: MACR100C2 PO (11:48)
[2017-01-15] MEDS ORDERED: NORC5TAB PO (11:48)
--- NOTE | 2017-01-15 11:48 | PD ---
Physical Exam Date Seen by Provider: Jan 15, 2017 Time Seen by Provider: 10:40 Narrative Patient was sent to us from the OB ED for evaluation of lower abdominal pain. The patient one-week status post normal spontaneous vaginal delivery. She states that she had been doing well post delivery until this morning when she developed a sudden onset of right-sided abdominal pain. She subsequently called [facility] is reported to the OB ED for evaluation. She was then sent down to us for evaluation because it was felt that the abdominal pain was unrelated to her recent delivery. She describes the pain as sharp. She states that it was an 8 out of 10 she was treated with morphine. It is now a 4 out of 10. Pain started acutely this morning. It has been continuous. Pain is associated with nausea but no vomiting. She denies fever. She denies urinary tract symptoms. She does not describe any unusual bleeding and states that there is no odor to the bleeding. Data Data Last Documented VS Vital Signs Date Time Temp Pulse Resp B/P Pulse Ox O2 Delivery O2 Flow Rate FiO2 01/15/17 10:19 99.4 81 16 172/91 100 Orders Urinalysis - C+S If Indicated (01/15/17 10:01) Complete Blood Count With Diff (01/15/17 10:01) Comprehensive Metabolic Panel (01/15/17 10:01) Lipase (01/15/17 10:01) Ct Abd/Pel W Iv Contrast(Rout) (01/15/17 10:37) Iv Access Insert/Monitor (01/15/17 10:37) Morphine Inj (Morphine Inj) (01/15/17 10:45) Ondansetron Inj (Zofran Inj) (01/15/17 10:45) Sodium Chloride 0.9% Flush (Ns Flush) (01/15/17 10:45) Urine Culture (01/15/17 09:40) Iohexol 350 Inj (Omnipaque 350 Inj) (01/15/17 11:08) Labs Laboratory Tests Test 01/15/17 01/15/17 09:40 10:30 Urine Color YELLOW Urine Turbidity HAZY Urine pH 6.5 Urine Specific [place] 1.015 Urine Protein 30 mg/dL Urine Glucose (UA) NEG mg/dL Urine Ketones NEG mg/dL Urine Occult Blood LARGE Urine Nitrite NEG Urine Bilirubin NEG Urine Urobilinogen LESS THAN 2.0 MG/DL Urine Leukocyte Esterase LARGE Urine RBC 102 /hpf Urine WBC 115 /hpf Urine Squamous Epithelial 4 /hpf Cells Urine Amorphous Sediment FEW Urine Bacteria OCC /hpf Urine Mucus FEW /lpf Microscopic Urinalysis Comment CULTURE INDICATED White Blood Count 9.6 TH/MM3 Red Blood Count 4.40 MIL/MM3 Hemoglobin 11.5 GM/DL Hematocrit 35.1 % Mean Corpuscular Volume 79.8 FL Mean Corpuscular Hemoglobin 26.1 PG Mean Corpuscular Hemoglobin 32.7 % Concent Red Cell Distribution Width 14.1 % Platelet Count 400 TH/MM3 Mean Platelet Volume 7.5 FL Neutrophils (%) (Auto) 73.0 % Lymphocytes (%) (Auto) 17.6 % Monocytes (%) (Auto) 7.2 % Eosinophils (%) (Auto) 1.9 % Basophils (%) (Auto) 0.3 % Neutrophils # (Auto) 7.0 TH/MM3 Lymphocytes # (Auto) 1.7 TH/MM3 Monocytes # (Auto) 0.7 TH/MM3 Eosinophils # (Auto) 0.2 TH/MM3 Basophils # (Auto) 0.0 TH/MM3 CBC Comment DIFF FINAL Differential Comment Sodium Level 141 MEQ/L Potassium Level 4.3 MEQ/L Chloride Level 109 MEQ/L Carbon Dioxide Level 23.7 MEQ/L Anion Gap 8 MEQ/L Blood Urea Nitrogen 10 MG/DL Creatinine 0.64 MG/DL Estimat Glomerular Filtration 142 ML/MIN Rate Random Glucose 85 MG/DL Calcium Level 8.8 MG/DL Total Bilirubin 0.4 MG/DL Aspartate Amino Transf 27 U/L (AST/SGOT) Alanine Aminotransferase 17 U/L (ALT/SGPT) Alkaline Phosphatase 116 U/L Total Protein 7.5 GM/DL Albumin 2.9 GM/DL Lipase 76 U/L [facility] Supervised Visit with [facility]: No Differential Diagnosis Differential diagnosis of abdominal pain includes but is not limited to gastritis, pancreatitis, hepatitis, gastroenteritis, gallbladder disease, constipation, urinary retention, UTI, peptic ulcer disease, diverticulitis or appendicitis Narrative Course Patient presents with abdominal pain. On exam, she has positive bowel sounds. She has diffuse lower abdominal tenderness with guarding. 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 Small umbilical hernia and diastasis of the rectus abdominous musculature. Shane Luo MD UA shows large blood, large leukocyte esterase, 102 RBCs and 115 WBCs and occasional bacteria. I presume that this was a voided sample. It was obtained in the OB ED. I will presume infection and treat accordingly. Diagnosis Primary Impression: Abdominal pain Qualified Code: R10.30 - Lower abdominal pain Additional Impression: UTI (lower urinary tract infection) Patient Instructions: General Instructions, Urinary Tract Infection in Women ( ED) Med/Other Pt SpecificInfo: Prescription(s) given Scripts Hydrocodone-Acetaminophen ([place])5-325 mg Tab1 Tab PO Q4H PRN (PAIN) #12 TAB Ref 0 Prov:Alethea Chow MD 01/15/17 Nitrofurantoin Monohydrate Macrocrystals (Macrobid)100 Mg [id number] Mg PO BID #14 CAP Ref 0 Prov:Alethea Chow MD 01/15/17 Disposition: 01 DISCHARGE HOME Condition: Stable Alethea Chow MD Jan 15, 2017 11:48
== END 2017-01-15 12:34 | disposition home or self-care (01) ==
LOC: HOBED 09:27 → NEPC 12:34
DX: O86.20 Urinary tract infection following delivery, unspecified (principal); B96.89 Other specified bacterial agents as the cause of diseases classified elsewhere
CPT/HCPCS: 74177; 80053; 81001; 83690; 85025; 87086; 96374; 96375; 99284; J2270; J2405; Q9967

== ENCOUNTER 2017-01-23 10:59 | Emergency (ER) | payer OTHER ==
[~2017-01-23 10:59] MED LIST changes: +MACR100C2 PO; +NORC5TAB PO
--- NOTE | 2017-01-23 11:38 | PD ---
HPI Chief Complaint Elevated BP Date Seen: Jan 23, 2017 (Denise Espitia MD R1) Travel History International Travel<30 Days: No Contact w/Intl Traveler<30Days: No Known Affected Area: No (Denise Espitia MD R1) International Travel<30 Days: No Contact w/Intl Traveler<30Days: No (Zahra Ball MD) History of Present Illness HPI 21-year-old status post 1 week presents to the [facility] ED with a chief complaint of elevated blood pressure. Patient had a visit at [facility] yesterday where her blood pressure was elevated, but she does not remember the reading. She was told to come into the ED today to be evaluated for elevated blood pressure. She states that she went to the main ED where her blood pressure was measured and was found to be elevated and was sent over to the OB ED. She denies any complaints except headache for the past 2 nights. The headache is located in her right adventism. She does not have headache currently. Para: 2 : 3 : 1 (spontaneous) (Denise Espitia MD R1) HPI 2 weeks PP with history of elevated BPs intermittently over the past 2 years. She had PIH/pre-eclampsia in 2013. She had readings c/w "pre-hypertension" between pregnancies. This she also had PIH but no antihypertensive medications were indicated. Both of her parents have CHTN. She had and uncomplicated 4/5, care with [facility]. She was seen a week ago for abdominal pain and was treated for a UTI (culture negative). BPs where stable and not in a range that indicated antihypertensive treatment, labs WNL. Possible subinvolution of the uterus 7-10 days PP. At this time she denies PATEL, visual changed, abdominal pain or any other symptoms. She presented to the ER for a BP check after seeing her miter grinder operator yesterday in the clinic and her BP was "slightly elevated". She do not have records at this time of that visit. (Zahra Ball MD) History Past Medical History Medical History: Denies Significant Hx (Denise Espitia MD R1) Obstetric History Obstetric History First baby born September 04, 2014 male weight 7 lbs. 3 oz. vaginal delivery uncomplicated Spontaneous AB 1 Patient had -induced hypertension late into her third (Denise Espitia MD R1) Past Surgical History Surgical History: No Previous Surgery (Denise Espitia MD) Family History Narrative Family History Both parents have hypertension (Denise Espitia MD) Social History Alcohol Use: No Tobacco Use: No Substance Abuse: No (Denise Espitia MD) Allergies-Medications (Allergen,Severity, Reaction): Coded Allergies: No Known Allergies (Unverified , 01/03/17) Home Meds Active Scripts Hydrocodone-Acetaminophen (Mason)5-325 mg Tab1 Tab PO Q4H PRN (PAIN) #12 TAB Ref 0 Prov:Alethea Chow MD 01/15/17 Nitrofurantoin Monohydrate Macrocrystals (Macrobid)100 Mg [id number] Mg PO BID #14 CAP Ref 0 Prov:Alethea Chow MD 01/15/17 Ibuprofen 600 Mg [id number] Mg PO Q6H PRN ( CRAMPING) #30 TAB Prov:Denise Espitia MD 01/10/17 Review of Systems General / Constitutional: No: Fever, Chills Eyes: No: Blurred Vision, Visual changes HENT: Headaches Cardiovascular: No: Chest Pain or Discomfort Respiratory: No: Cough, Short of Breath Gastrointestinal: No: Nausea, Vomiting, Diarrhea, Abdominal Pain Genitourinary: No: Dysuria, Vaginal Bleeding Musculoskeletal: No: Weakness, Edema Skin: No Rash Neurologic: Headache, No: Weakness (Denise Espitia MD R1) General / Constitutional: No: Fever, Chills HENT: No: Headaches, Vertigo, Lightheadedness Cardiovascular: No: Irregular Rhythm, Chest Pain or Discomfort, Palpitations Respiratory: No: Cough, Short of Breath Gastrointestinal: No: Nausea, Vomiting, Abdominal Pain Genitourinary: No: Urgency, Frequency, Dysuria Musculoskeletal: No: Limited ROM Skin: No Rash, No Itching, No Lesions Neurologic: No: Focal Abnormalities, Coordination Problem (Zahra Ball MD ) Physical Exam Narrative GENERAL: Well-nourished, well-developed patient. SKIN: Warm and dry. HEAD: Normocephalic and atraumatic. EYES: No scleral icterus. No injection or drainage. ENT: No nasal drainage noted. Mucous membranes pink. Airway patent. NECK: Supple, trachea midline. No JVD. CARDIOVASCULAR: Regular rate and rhythm without murmurs, gallops, or rubs. RESPIRATORY: Breath sounds equal bilaterally. No accessory muscle use. ABDOMEN/GI: Abdomen soft, non-tender, bowel sounds present, no rebound, no guarding EXTREMITIES: No cyanosis or edema. BACK: Nontender without obvious deformity. No CVA tenderness. NEUROLOGICAL: Awake and alert. Motor and sensory grossly within normal limits. Five out of 5 muscle strength in all muscle groups. Normal speech. (Denise Espitia MD R1) BP: 120/79, 122/67, 114/69 (Zahra Ball MD) Data Data Vital Signs Reviewed: Yes (Denise Espitia MD R1) Vital Signs Reviewed: Yes (Zahra Ball MD) [facility] Medical Record Reviewed: Yes Interpretation(s) 21 year old status post two weeks vaginal delivery presents with chief complaint of elevated blood pressure. Plan -Initial blood pressure was 120/79. 30 minutes later, BP was 122/67 -Discussed with patient that based on these readings, she does not need blood pressure medication at this time -Elevated blood pressure appears to be intermittent and patient will need follow -up by a primary care physician -Patient advised to contact PCP Dr. Landrum for follow-up on blood pressure (Denise Espitia MD R1) Attending Attestation 2 weeks PP. Normal BPs on serial monitoring. Asymptomatic at this time. Patient counseled. She will f/u with her miter grinder operator in one week for a BP check unless symptoms change. She will also schedule a f/u visit with her primary care physician whom she last saw pre-. All questions answered at this time. Seen and examined with Dr. Espitia and Dr. Valera. (Zahra Ball MD) Diagnosis Diagnosis: Primary Impression: hypertension Ruled Out: induced hypertension Disposition: DISCHARGE HOME Condition: Stable Denise Espitia MD R1 Jan 23, 2017 11:38 Zahra Ball MD Jan 23, 2017 12:43
== END 2017-01-23 12:54 | disposition home or self-care (01) ==
LOC: HOBED 10:59
DX: O16.5 Unspecified maternal hypertension, complicating the puerperium (principal); R51 Headache
CPT/HCPCS: 99283

== ENCOUNTER 2017-03-04 10:02 | Emergency (ER) | payer OTHER ==
[~2017-03-04] VITALS: Ht 152.4 cm; Wt 75.0 kg
[2017-03-04 10:04] VITALS: BP 158/77; PULSE 118; RESP 18; TEMP 99.1; O2SAT 98
[2017-03-04 10:17] VITALS: TEMP 99
[2017-03-04 11:01] LABS: BACTERIA, URINE FEW /hpf; BLOOD, URINE NEG (NEG); COMMENT (UR) CULTURE INDICATED; CULTURE IF INDICATED CULTURE INDICATED; GLUCOSE,URINE NEG (NEG); KETONE, URINE NEG (NEG); MUCUS URINE FEW /lpf (OCC); NITRITE,URINE NEG (NEG); SQUAMOUS EPITHELIAL CELL URINE 6 /hpf (0-5); TRANSITIONAL EPI CELLS, URINE 1 /hpf; URINE COLOR YELLOW (YELLW/STRAW)
[2017-03-04] MEDS ORDERED: BACT800T5 PO (11:36)
--- NOTE | 2017-03-04 11:36 | PD ---
HPI Chief Complaint: Complaint Time Seen by Provider: 10:20 Travel History International Travel<30 days: No Contact w/Intl Traveler<30days: No Traveled to known affect area: No History of Present Illness HPI 21-year-old female here with complaint of urinary symptoms. Patient has had small volume urinary frequency with end stream dysuria for the last week. States that she gets urinary tract infections frequently when she is , she is hoping she is not but does not believe she is. She also notes increasing vaginal discharge. She has been sexual active with the same partner for the last year. No history of STD. PFSH Past Medical History Hx Anticoagulant Therapy: No ADHD: No Asthma: Yes Depression: Yes Cancer: No Cardiovascular Problems: No Chemotherapy: No Cerebrovascular Accident: No Developmental Delay: No Diabetes: No Diminished Hearing: No Psychiatric: Yes (DEPRESSION) Respiratory: Yes Immunizations Current: Yes Migraines: No Seizures: No Thyroid Disease: No Ulcer: No ?: Unknown LMP: 02/23/17 : 3 Para: 2 Miscarriage: 1 : 0 Past Surgical History Hysterectomy: No Other Surgery: No Social History Alcohol Use: No Tobacco Use: No Substance Use: No Allergies-Medications (Allergen,Severity, Reaction): Coded Allergies: No Known Allergies (Unverified , 01/03/17) Reported Meds & Prescriptions Reported Meds & Active Scripts Active Bactrim DS (Sulfamethoxazole-Trimethoprim) 800-160 Mg Tab 1 Tab PO BID [place] (Hydrocodone-Acetaminophen) 5-325 mg Tab 1 Tab PO Q4H PRN Macrobid (Nitrofurantoin Monoh/Nitrofur Macro) 100 Mg Cap 100 Mg PO BID Ibuprofen 600 Mg Tab 600 Mg PO Q6H PRN Review of Systems Except as stated in HPI: all other systems reviewed are Neg Physical Exam Narrative GENERAL: Well-appearing female in no acute distress SKIN: Focused skin assessment warm/dry. HEAD: Normocephalic. EYES: No scleral icterus. No injection or drainage. ENT: Mucous membranes pink and moist. NECK: Supple CARDIOVASCULAR: Regular rate and rhythm. RESPIRATORY: No accessory muscle use. GASTROINTESTINAL: Abdomen soft, non-tender, nondistended GENITOURINARY: Normal external female genitalia. Speculum examination reveals white vaginal discharge without cervical erythema. No cervical motion tenderness, uterus or adnexal pain on bimanual exam MUSCULOSKELETAL: No obvious deformities. No edema. NEUROLOGICAL: Awake and alert. Normal speech. PSYCHIATRIC: Appropriate mood and affect; insight and judgment normal. Data Data Last Documented VS Vital Signs Date Time Temp Pulse Resp B/P Pulse Ox O2 Delivery O2 Flow Rate FiO2 03/04/17 10:17 99.0 03/04/17 10:04 118 18 158/77 98 Orders Gc And Chlamydia Pcr (03/04/17 10:21) Wet Prep Profile (03/04/17 10:21) Urinalysis - C+S If Indicated (03/04/17 10:21) Ed Urine Pregnancytest Poc (03/04/17 10:21) Urine Culture (03/04/17 10:25) Labs Laboratory Tests Test 03/04/17 03/04/17 10:25 10:30 Urine Color YELLOW Urine Turbidity HAZY Urine pH 7.0 Urine Specific [place] 1.017 Urine Protein 30 mg/dL Urine Glucose (UA) NEG mg/dL Urine Ketones NEG mg/dL Urine Occult Blood NEG Urine Nitrite NEG Urine Bilirubin NEG Urine Urobilinogen LESS THAN 2.0 MG/DL Urine Leukocyte Esterase LARGE Urine RBC 7 /hpf Urine WBC 180 /hpf Urine Squamous Epithelial 6 /hpf Cells Urine Transitional Epithelial 1 /hpf Cells Urine Bacteria FEW /hpf Urine Mucus FEW /lpf Microscopic Urinalysis Comment CULTURE INDICATED Clue Cells (Wet Prep) NONE SEEN Vaginal Trichomonas (Wet Prep) NONE SEEN Vaginal Yeast (Wet Prep) NONE SEEN MDM Medical Decision Making Medical Screen Exam Complete: Yes Emergency Medical Condition: Yes Medical Record Reviewed: Yes Differential Diagnosis 21-year-old female with history of frequent UTIs here with complaint of same. Differential includes cystitis, pyelonephritis, bacterial vaginosis, yeast infection, Trichomonas, GC and Chlamydia are other STI Narrative Course Urine test was negative. Urinalysis is positive for UTI. Wet prep negative. GC and Chlamydia sent but I would not empirically treat her based on her symptoms. We'll discharge to home with Bactrim as needed. Diagnosis Primary Impression: Urinary tract infection Qualified Code: N30.00 - Acute cystitis without hematuria Referrals: Primary Care Physician as needed Additional Instructions: Finish antibiotics as prescribed. Med/Other Pt SpecificInfo: Prescription(s) given Scripts Sulfamethoxazole-Trimethoprim (Bactrim DS)800-160 Mg Tab1 Tab PO BID #14 TAB Ref 0 Prov:Latonia Santacruz MD 03/04/17 Disposition: 01 DISCHARGE HOME Condition: Stable Latonia Santacruz MD March 04, 2017 11:36
[2017-03-04 14:00] LABS: CHLAMYDIA PCR NOT DETECTED (NOT DETECT); NEISSERIA PCR NOT DETECTED (NOT DETECT)
== END 2017-03-04 11:55 | disposition home or self-care (01) ==
LOC: NEPD 10:02
DX: N30.00 Acute cystitis without hematuria (principal); B96.20 Unspecified Escherichia coli [E. coli] as the cause of diseases classified elsewhere; B95.7 Other staphylococcus as the cause of diseases classified elsewhere; N89.8 Other specified noninflammatory disorders of vagina; Z87.09 Personal history of other diseases of the respiratory system; Z86.59 Personal history of other mental and behavioral disorders
CPT/HCPCS: 81001; 84703; 86403; 87077; 87086; 87186; 87210; 87491; 87591; 99283

== ENCOUNTER 2017-07-09 16:24 | Emergency (ER) | payer OTHER ==
[~2017-07-09] VITALS: Ht 152.4 cm; Wt 75.0 kg
[~2017-07-09 16:24] MED LIST changes: +BACT800T5 PO
[2017-07-09 16:25] VITALS: BP 130/79; PULSE 78; RESP 16; TEMP 99; O2SAT 100
--- NOTE | 2017-07-09 16:32 | PD ---
Physical Exam Date Seen by Provider: Jul 09, 2017 Time Seen by Provider: 16:30 Narrative 21 year old female here for evaluation of possible UTI. Has had symptoms for about a month. Coming and going. Having some vaginal discharge possible yeast?, no pain in pelvis. Burn to pee. Smells funny. No other medical issues. Vitals are stable in triage. Awaiting bed placement. Data Data Last Documented VS Vital Signs Date Time Temp Pulse Resp B/P (MAP) Pulse Ox O2 Delivery O2 Flow Rate FiO2 07/09/17 16:25 99.0 78 16 130/79 (96) 100 Room Air [facility] Medical Record Reviewed: Yes Supervised Visit with SALEEM: No Marcus Steward Jul 09, 2017 16:32
[2017-07-09 17:24] LABS: BACTERIA, URINE FEW /hpf; BLOOD, URINE NEG (NEG); COMMENT (UR) CULTURE INDICATED; CULTURE IF INDICATED CULTURE INDICATED; GLUCOSE,URINE NEG (NEG); KETONE, URINE TRACE mg/dL (NEG); MUCUS URINE MOD /lpf (OCC); NITRITE,URINE NEG (NEG); SQUAMOUS EPITHELIAL CELL URINE 23 /hpf (0-5); URINE COLOR YELLOW (YELLW/STRAW)
[2017-07-09] MEDS ORDERED: DIFL150T PO (17:33)
[2017-07-09] MEDS ORDERED: CEPH-460 PO (17:33)
--- NOTE | 2017-07-09 17:39 | PD ---
HPI Chief Complaint: Complaint Time Seen by Provider: 17:25 Travel History International Travel<30 days: No Contact w/Intl Traveler<30days: No Traveled to known affect area: No History of Present Illness HPI 21-year-old Afro-[place] female presents the emergency department with intermittent urinary symptoms for the past month. She she's had intermittent dysuria and frequency denies fever, chills, flank pain, or significant abdominal pain. Patient is also noted in the last 24 hours some whitish discharge suggestive of yeast infection which she's had in the past. She denies . She denies other significant vaginal discharge. She has no known drug allergies PFSH Past Medical History Hx Anticoagulant Therapy: No ADHD: No Asthma: Yes Depression: Yes Cancer: No Cardiovascular Problems: No Chemotherapy: No Cerebrovascular Accident: No Developmental Delay: No Diabetes: No Diminished Hearing: No Psychiatric: Yes (DEPRESSION) Respiratory: Yes Immunizations Current: Yes Migraines: No Seizures: No Thyroid Disease: No Ulcer: No ?: Not : 3 Para: 2 Miscarriage: 1 : 0 Past Surgical History Hysterectomy: No Other Surgery: No Social History Alcohol Use: No Tobacco Use: No Substance Use: No Allergies-Medications (Allergen,Severity, Reaction): Coded Allergies: No Known Allergies (Unverified , 07/09/17) Reported Meds & Prescriptions Reported Meds & Active Scripts Active Diflucan (Fluconazole) 150 Mg Tab 150 Mg PO ONCE Keflex (Cephalexin) 500 Mg Cap 500 Mg PO Q8H 7 Days Review of Systems Except as stated in HPI: all other systems reviewed are Neg General / Constitutional: No: Fever Eyes: No: Visual changes HENT: No: Headaches Cardiovascular: No: Chest Pain or Discomfort Respiratory: No: Shortness of Breath Gastrointestinal: No: Abdominal Pain Genitourinary: No: Dysuria Musculoskeletal: No: Pain Skin: No Rash Neurologic: No: Weakness Psychiatric: No: Depression Endocrine: No: Polydipsia Hematologic/Lymphatic: No: Easy Bruising Physical Exam Narrative GENERAL: Patient is in no acute distress. SKIN: Warm and dry. Normal color. Normal turgor. HEAD: Atraumatic. Normocephalic. EYES: Pupils equal and round. No scleral icterus. No injection or drainage. ENT: No nasal bleeding or discharge. Mucous membranes pink and moist. Pharynx is clear. Airway is patent. NECK: Trachea midline. Supple. CARDIOVASCULAR: Regular rate and rhythm. RESPIRATORY: No accessory muscle use. Clear to auscultation. Breath sounds equal bilaterally. GASTROINTESTINAL: Abdomen soft, non-tender, nondistended. Hepatic and splenic margins not palpable. No CVA tenderness. No abdominal tenderness whatsoever. MUSCULOSKELETAL: Extremities without clubbing, cyanosis, or edema. No obvious deformities. NEUROLOGICAL: Awake and alert. No obvious cranial nerve deficits. Motor grossly within normal limits. Five out of 5 muscle strength in the arms and legs. Normal speech. PSYCHIATRIC: Appropriate mood and affect; insight and judgment normal. Data Data Last Documented VS Vital Signs Date Time Temp Pulse Resp B/P (MAP) Pulse Ox O2 Delivery O2 Flow Rate FiO2 07/09/17 16:25 99.0 78 16 130/79 (96) 100 Room Air Orders Orders Urinalysis - C+S If Indicated (07/09/17 16:30) Ed Urine Pregnancytest Poc (07/09/17 16:30) Urine Culture (07/09/17 16:39) Labs Laboratory Tests Test 07/09/17 16:39 Urine Color YELLOW Urine Turbidity HAZY Urine pH 6.0 Urine Specific [place] 1.034 Urine Protein 30 mg/dL Urine Glucose (UA) NEG mg/dL Urine Ketones TRACE mg/dL Urine Occult Blood NEG Urine Nitrite NEG Urine Bilirubin NEG Urine Urobilinogen 4.0 MG/DL Urine Leukocyte Esterase LARGE Urine RBC 2 /hpf Urine WBC 14 /hpf Urine Squamous Epithelial Cells 23 /hpf Urine Bacteria FEW /hpf Urine Mucus MOD /lpf Microscopic Urinalysis Comment CULTURE INDICATED MDM Medical Decision Making Medical Screen Exam Complete: Yes Emergency Medical Condition: Yes Differential Diagnosis Urinary tract infection. Vaginal yeast infection. Dysuria. Narrative Course Patient is medically stable at time of exam Urinalysis suggestive of urinary tract infection. Urinary culture is pending. Patient will be treated empirically with Keflex 3 times a day 7 days. Patient also given Diflucan 150 mg one tablet which may be repeated in one week when necessary. Patient referred to the [facility] for further evaluation and treatment as needed. Patient can return the emergency Department with worsening symptoms if necessary. Diagnosis Primary Impression: Urinary tract infection Qualified Codes: N30.00 - Acute cystitis without hematuria Referrals: [facility] call for appointment Patient Instructions: Dysuria (ED), General Instructions Additional Instructions: Urinalysis suggestive of urinary tract infection. Urinary culture is pending. Patient will be treated empirically with Keflex 3 times a day 7 days. Patient also given Diflucan 150 mg one tablet which may be repeated in one week when necessary. Patient referred to the women's Center for further evaluation and treatment as needed. Patient can return the emergency Department with worsening symptoms if necessary. Med/Other Pt SpecificInfo: Prescription(s) given Scripts Fluconazole (Diflucan) 150 Mg Tab 150 MG PO ONCE for Infection, #1 TAB 1 Refill Prov: Rodolfo Lr MD 07/09/17 Cephalexin (Keflex) 500 Mg Cap 500 MG PO Q8H for Infection for 7 Days, #21 CAP 0 Refills Prov: Rodolfo Lr MD 07/09/17 Disposition: 01 DISCHARGE HOME Condition: Stable Tom Hollingsworth Jul 09, 2017 17:39
== END 2017-07-09 18:06 | disposition home or self-care (01) ==
LOC: NEPD 16:24
DX: N39.0 Urinary tract infection, site not specified (principal); B96.20 Unspecified Escherichia coli [E. coli] as the cause of diseases classified elsewhere; J45.909 Unspecified asthma, uncomplicated; F32.9 Major depressive disorder, single episode, unspecified
CPT/HCPCS: 81001; 84703; 87077; 87086; 87186; 99284

== ENCOUNTER 2017-09-28 18:54 | Emergency (ER) | payer OTHER ==
[~2017-09-28] VITALS: Ht 154.9 cm; Wt 75.0 kg
[~2017-09-28 18:54] MED LIST changes: -BACT800T5 PO; +CEPH-460 PO; +DIFL150T PO; -IBUP-232 PO; -MACR100C2 PO; -NORC5TAB PO
[2017-09-28 18:57] VITALS: BP 130/62; PULSE 131; RESP 20; TEMP 103.3; O2SAT 97
--- NOTE | 2017-09-28 19:12 | PD ---
HPI Chief Complaint: Cold / Flu Symptoms Time Seen by Provider: 19:05 Travel History International Travel<30 days: No Contact w/Intl Traveler<30days: No Traveled to known affect area: No History of Present Illness HPI 21-year-old who is currently 7 weeks estimated gestational age based on last menstrual period- she follows with clipper machine operator Christa Dunbar. She presents for evaluation of fevers, chills, myalgias, sore throat, cough, congestion, increased urinary frequency. Symptoms been ongoing for 2 days. Symptoms are moderate, somewhat alleviated with Tylenol intermittently. The cough is productive with clear sputum. She denies chest pain or shortness of breath, abdominal pain, dysuria, rash, vaginal bleeding, vaginal discharge. She reports that her child has had upper respiratory infection recently. She has no other complaints at this time. [facility] Past Medical History Medical History: Denies Significant Hx Hx Anticoagulant Therapy: No ADHD: No Asthma: Yes Depression: Yes Cancer: No Cardiovascular Problems: No Chemotherapy: No Cerebrovascular Accident: No Developmental Delay: No Diabetes: No Diminished Hearing: No Psychiatric: Yes (DEPRESSION) Respiratory: Yes Immunizations Current: Yes Migraines: No Seizures: No Thyroid Disease: No Ulcer: No ?: : 3 Para: 2 Miscarriage: 1 : 0 Past Surgical History Surgical History: No Previous Surgery Hysterectomy: No Other Surgery: No Social History Alcohol Use: No Tobacco Use: No Substance Use: No Allergies-Medications (Allergen,Severity, Reaction): Coded Allergies: No Known Allergies (Unverified Adverse Reaction, Unknown, 09/28/17) Reported Meds & Prescriptions Reported Meds & Active Scripts Active Tamiflu (Oseltamivir Phosphate) 75 Mg Cap 75 Mg PO BID Review of Systems Except as stated in HPI: all other systems reviewed are Neg Physical Exam Narrative GENERAL: Well-developed well-nourished female in no acute distress SKIN: Warm and dry. HEAD: Atraumatic. Normocephalic. EYES: Pupils equal and round. No scleral icterus. No injection or drainage. ENT: No nasal bleeding or discharge. Mucous membranes pink and moist. There is oropharyngeal erythema without exudate. NECK: Trachea midline. No JVD. CARDIOVASCULAR: Regular rate and rhythm. No murmur appreciated. RESPIRATORY: No accessory muscle use. Clear to auscultation. Breath sounds equal bilaterally. No crackles no wheezing or rhonchi GASTROINTESTINAL: Abdomen soft, non-tender, nondistended. Hepatic and splenic margins not palpable. MUSCULOSKELETAL: No obvious deformities. No clubbing. No cyanosis. No edema. NEUROLOGICAL: Awake and alert. No obvious cranial nerve deficits. Motor grossly within normal limits. Normal speech. PSYCHIATRIC: Appropriate mood and affect; insight and judgment normal. Data Data Last Documented VS Vital Signs Date Time Temp Pulse Resp B/P (MAP) Pulse Ox O2 Delivery O2 Flow Rate FiO2 09/28/17 19:59 98 Room Air 09/28/17 18:57 103.3 131 20 130/62 (84) Orders Orders Complete Blood Count With Diff (09/28/17 19:09) Comprehensive Metabolic Panel (09/28/17 19:09) Lactic Acid Sepsis Protocol (09/28/17 19:09) Urinalysis - C+S If Indicated (09/28/17 19:09) Influenzae A/B Antigen (09/28/17 19:09) Blood Culture (09/28/17 19:09) Chest, Single Ap (09/28/17 19:09) Ecg Monitoring (09/28/17 19:09) Iv Access Insert/Monitor (09/28/17 19:09) Oximetry (09/28/17 19:09) Oxygen Administration (09/28/17 19:09) Sodium Chlor 0.9% 1000 Ml Inj (Ns 1000 M (09/28/17 19:09) Ed Urine Pregnancytest Poc (09/28/17 19:09) Acetaminophen (Tylenol) (09/28/17 19:15) Group A Rapid Strep Screen (09/28/17 20:45) Oseltamivir (Tamiflu) (09/28/17 22:00) Strep Culture (Group A) (09/28/17 21:10) Oseltamivir (Tamiflu) (09/28/17 22:00) Oseltamivir (Tamiflu) (09/28/17 22:00) Ed Discharge Order (09/28/17 22:14) Labs Laboratory Tests Test 09/28/17 19:45 09/28/17 21:10 09/28/17 21:40 Blood Urea Nitrogen 10 MG/DL Creatinine 0.75 MG/DL Random Glucose 75 MG/DL Total Protein 8.3 GM/DL Albumin 3.7 GM/DL Calcium Level 8.4 MG/DL Alkaline Phosphatase 79 U/L Aspartate Amino Transf (AST/SGOT) 18 U/L Alanine Aminotransferase (ALT/SGPT) 18 U/L Total Bilirubin 0.1 MG/DL Sodium Level 134 MEQ/L Potassium Level 4.0 MEQ/L Chloride Level 104 MEQ/L Carbon Dioxide Level 21.6 MEQ/L Anion Gap 8 MEQ/L Estimat Glomerular Filtration Rate 118 ML/MIN Lactic Acid Level 1.2 mmol/L White Blood Count 6.7 TH/MM3 Red Blood Count 4.25 MIL/MM3 Hemoglobin 11.7 GM/DL Hematocrit 35.3 % Mean Corpuscular Volume 83.2 FL Mean Corpuscular Hemoglobin 27.6 PG Mean Corpuscular Hemoglobin Concent 33.2 % Red Cell Distribution Width 13.4 % Platelet Count 234 TH/MM3 Mean Platelet Volume 7.5 FL Neutrophils (%) (Auto) 73.0 % Lymphocytes (%) (Auto) 11.8 % Monocytes (%) (Auto) 14.7 % Eosinophils (%) (Auto) 0.3 % Basophils (%) (Auto) 0.2 % Neutrophils # (Auto) 4.9 TH/MM3 Lymphocytes # (Auto) 0.8 TH/MM3 Monocytes # (Auto) 1.0 TH/MM3 Eosinophils # (Auto) 0.0 TH/MM3 Basophils # (Auto) 0.0 TH/MM3 CBC Comment DIFF FINAL Differential Comment Urine Color LIGHT-YELLOW Urine Turbidity HAZY Urine pH 6.0 Urine Specific [place] 1.009 Urine Protein NEG mg/dL Urine Glucose (UA) NEG mg/dL Urine Ketones TRACE mg/dL Urine Occult Blood NEG Urine Nitrite NEG Urine Bilirubin NEG Urine Urobilinogen LESS THAN 2.0 MG/DL Urine Leukocyte Esterase TRACE Urine WBC 1 /hpf Urine Squamous Epithelial Cells 8 /hpf Urine Mucus FEW /lpf Microscopic Urinalysis Comment CULT NOT INDICATED MDM Medical Decision Making Medical Screen Exam Complete: Yes Emergency Medical Condition: Yes Medical Record Reviewed: Yes Differential Diagnosis Influenza, pyelonephritis, streptococcal pharyngitis, pneumonia, sepsis Narrative Course 21-year-old female here with 2 days of fevers, chills, myalgias, sore throat, cough, congestion, increased urinary frequency. On examination she is febrile and tachycardic but appears well. And is soft and nontender. Lungs are clear to auscultation. Plan is for basic lab work, influenza antigen, rapid strep screen, urinalysis. She was given Tylenol, IV fluids. Lab work is been reviewed. She has a positive influenza antigen. She will be started on Tamiflu. CBC is unremarkable. CMP reveals a sodium 134, calcium of 8.4, lactic acid within normal limits, rapid strep screen negative, chest x-ray within normal limits, upon reexamination patient's vital signs improved, heart rate 100, temperature 100.3. She is stable for discharge. Diagnosis Primary Impression: Influenza Additional Instructions: Medications as prescribed. [id number] Tylenol every 6 hours as needed for fever. Stay well hydrated and well-nourished. Cover mouth when coughing, wash hands frequently. Follow-up with primary care physician as needed and return for any acutely new or worsening symptoms. Med/Other Pt SpecificInfo: Prescription(s) given Scripts Oseltamivir (Tamiflu) 75 Mg Cap 75 MG PO BID for Mgmt Viral Infection, #9 CAP 0 Refills Prov: Alethea Chow MD 09/28/17 Disposition: 01 DISCHARGE HOME Condition: Stable Ferny Jimenez Sep 28, 2017 19:12
[2017-09-28] MEDS ORDERED: ACETAMINOPHEN 325 MG TAB PO ONE (19:15)
[2017-09-28] MEDS: SODIUM CHLOR 0.9% 1000 ML INJ 1,000 ML IV SCH ×2 (19:28→22:25)
[2017-09-28 19:59] VITALS: O2SAT 98
--- NOTE | 2017-09-28 20:08 | RADRPT ---
EXAM DATE/TIME: 09/28/2017 19:43 [facility] COMPARISON: No previous studies available for comparison. INDICATIONS : Shortness of breath, cough. MEDICAL HISTORY : None. SURGICAL HISTORY : None. ENCOUNTER: Initial ACUITY: 1 day PAIN SCORE: 0/10 LOCATION: Bilateral chest FINDINGS: Single AP view of the chest. The lungs are clear. Cardiomediastinal silhouette within normal limits. No evidence of pleural effusion or pneumothorax. CONCLUSION: No acute cardiopulmonary disease identified. Nish Escudero MD on September 28, 2017 at 20:06 Board Certified Radiologist. This report was verified electronically.
--- NOTE | 2017-09-28 20:23 | PD ---
Physical Exam Date Seen by Provider: Sep 28, 2017 Narrative This is a patient who presents with a flulike illness. Onset of symptoms was yesterday. She denies any sick contacts. She states her last dose of Tylenol was about noon time. Data Data Last Documented VS Vital Signs Date Time Temp Pulse Resp B/P (MAP) Pulse Ox O2 Delivery O2 Flow Rate FiO2 09/28/17 19:59 98 Room Air 09/28/17 18:57 103.3 131 20 130/62 (84) Orders Orders Complete Blood Count With Diff (09/28/17 19:09) Comprehensive Metabolic Panel (09/28/17 19:09) Lactic Acid Sepsis Protocol (09/28/17 19:09) Urinalysis - C+S If Indicated (09/28/17 19:09) Influenzae A/B Antigen (09/28/17 19:09) Blood Culture (09/28/17 19:09) Chest, Single Ap (09/28/17 19:09) Ecg Monitoring (09/28/17 19:09) Iv Access Insert/Monitor (09/28/17 19:09) Oximetry (09/28/17 19:09) Oxygen Administration (09/28/17 19:09) Sodium Chlor 0.9% 1000 Ml Inj (Ns 1000 M (09/28/17 19:09) Ed Urine Pregnancytest Poc (09/28/17 19:09) Acetaminophen (Tylenol) (09/28/17 19:15) Labs Laboratory Tests Test 09/28/17 19:45 MDM Supervised Visit with [facility]: Yes Narrative Course I, Dr. Chow, have reviewed the advance practice practitioner's documentation and am in agreement, met with the patient face to face, made the diagnosis, and the medical decision making was done by me. *My assessment and Findings: Vital Signs Date Time Temp Pulse Resp B/P (MAP) Pulse Ox O2 Delivery O2 Flow Rate FiO2 09/28/17 19:59 98 Room Air 09/28/17 19:59 98 Room Air 09/28/17 18:57 103.3 131 20 130/62 (84) 97 This patient does meet SIRS criteria and a septic workup is in process. However , the patient looks well. She is lucid. She does not appear to be in any distress. Please see Ferny Tony, PA-C's note for results of laboratory and radiographic evaluation, ED course, final diagnosis and disposition Scripts No Active Prescriptions or Reported Meds Alethea Chow MD Sep 28, 2017 20:23
[2017-09-28 20:43] LABS: ALBUMIN 3.7 GM/DL (3.4-5.0); BICARBONATE 21.6 MEQ/L (21.0-32.0); BLOOD UREA NITROGEN 10 MG/DL (7-18); CALCIUM 8.4 MG/DL (8.5-10.1); CHLORIDE 104 MEQ/L (98-107); CREATININE 0.75 MG/DL (0.50-1.00); GLOMERULAR FILTRATION RATE 118 ML/MIN (>89); GLUCOSE,RANDOM 75 MG/DL (74-106); SODIUM (NA) 134 MEQ/L (136-145)
[2017-09-28 20:45] LABS: ALT (GPT) 18 U/L (10-53); AST (GOT) 18 U/L (15-37)
[2017-09-28 20:46] LABS: ALKALINE PHOSPHATASE 79 U/L (45-117); TOTAL BILIRUBIN ADULT 0.1 MG/DL (0.2-1.0); TOTAL PROTEIN 8.3 GM/DL (6.4-8.2)
[2017-09-28 21:22] LABS: AUTOMATED NEUTROPHIL # 4.9 TH/MM3 (1.8-7.7); BASOPHIL % 0.2 % (0.0-2.0); EOSINOPHIL % 0.3 % (0.0-4.0); HEMATOCRIT 35.3 % (35.0-46.0); HEMOGLOBIN 11.7 GM/DL (11.6-15.3); LYMPH % 11.8 % (9.0-44.0); LYMPHOCYTE # 0.8 TH/MM3 (1.0-4.8); MEAN CELL VOLUME 83.2 FL (80.0-100.0); MEAN CORPUSCULAR HEMOGLOBIN 27.6 PG (27.0-34.0); MEAN CORPUSCULAR HGB CONC 33.2 % (32.0-36.0); MEAN PLATELET VOLUME 7.5 FL (7.0-11.0); MONO % 14.7 % (0.0-8.0); PLATELET COUNT 234 TH/MM3 (150-450); RED BLOOD COUNT 4.25 MIL/MM3 (4.00-5.30); RED CELL DISTRIBUTION WIDTH 13.4 % (11.6-17.2); WHITE BLOOD COUNT 6.7 TH/MM3 (4.0-11.0)
[2017-09-28] MEDS ORDERED: OSEL75 PO (21:50)
[2017-09-28] MEDS ORDERED: OSELTAMIVIR PHOSPHATE 45 MG CAP PO ONE (22:00)
[2017-09-28] MEDS ORDERED: OSELTAMIVIR PHOSPHATE 75 MG CAP PO ONE (22:00)
[2017-09-28] MEDS ORDERED: OSELTAMIVIR PHOSPHATE 30 MG CAP PO ONE (22:00)
[2017-09-28 22:09] LABS: BILIRUBIN, URINE NEG (NEG); BLOOD, URINE NEG (NEG); GLUCOSE,URINE NEG (NEG); KETONE, URINE TRACE mg/dL (NEG); MUCUS URINE FEW /lpf (OCC); NITRITE,URINE NEG (NEG); SQUAMOUS EPITHELIAL CELL URINE 8 /hpf (0-5); URINE COLOR LIGHT-YELLOW (YELLW/STRAW); URINE LEUKOCYTE ESTERASE TRACE (NEG)
== END 2017-09-28 22:44 | disposition home or self-care (01) ==
LOC: NEPD 18:54
DX: O99.511 Diseases of the respiratory system complicating pregnancy, first trimester (principal); J09.X2 Influenza due to identified novel influenza A virus with other respiratory manifestations; Z3A.01 Less than 8 weeks gestation of pregnancy
CPT/HCPCS: 71010; 80053; 81001; 83605; 84703; 85025; 87040; 87081; 87804; 87880; 96360; 96361; 99284; J7030

== ENCOUNTER 2017-11-16 16:44 | Emergency (ER) | payer OTHER ==
[~2017-11-16] VITALS: Ht 154.9 cm; Wt 74.0 kg
[~2017-11-16 16:44] MED LIST changes: -CEPH-460 PO; -DIFL150T PO; +OSEL75 PO
[2017-11-16 16:46] VITALS: BP 115/67; PULSE 87; RESP 16; TEMP 99.1; O2SAT 100
[2017-11-16] MEDS ORDERED: PEDI1CHW16 PO (18:55)
--- NOTE | 2017-11-16 18:55 | PD ---
HPI Chief Complaint: Related Problem Time Seen by Provider: 18:46 Travel History International Travel<30 days: No Contact w/Intl Traveler<30days: No Traveled to known affect area: No History of Present Illness HPI PATIENT C/O ONE DAY HISTORY OF LOW BACK PAIN, DENIES TRAUMA. ALSO OF NOTE PATIENT DENIES N/V/D/FEVER/COUGH/RUNNY NOSE/RASH/VAG BLEED/VAG DISCHARGE....OF NOTE HER PAIN IS WORSENED BY INITIAL MOVEMENT SUCH BENDING OVER, AND GETS BETTER WITH TIME AND ACTIVITY. PATIENT RATES A 3/10, "IT REALLY ISN'T A SERIOUS PAIN OR ANYTHING, JUST WANTED TO BE CAUTIOUS AND GET CHECKED OUT" PFSH Past Medical History Hx Anticoagulant Therapy: No ADHD: No Asthma: Yes Depression: Yes Cancer: No Cardiovascular Problems: No Chemotherapy: No Cerebrovascular Accident: No Developmental Delay: No Diabetes: No Diminished Hearing: No Psychiatric: Yes (DEPRESSION) Respiratory: Yes Immunizations Current: Yes Migraines: No Seizures: No Thyroid Disease: No Ulcer: No ?: LMP: AUG 12, 2017 : 3 Para: 2 Miscarriage: 1 : 0 Past Surgical History Hysterectomy: No Other Surgery: No Social History Alcohol Use: No Tobacco Use: No Substance Use: No Allergies-Medications (Allergen,Severity, Reaction): Coded Allergies: No Known Allergies (Unverified Adverse Reaction, Unknown, 11/16/17) Reported Meds & Prescriptions Reported Meds & Active Scripts Active Macrobid (Nitrofurantoin Monohydrate Macrocrystals) 100 Mg Capsule 100 Mg PO BID 7 Days Reported Gummies Children Multivitamin (Pediatric Multivitamin No.30) 1 Each Tab.chew 2 Tab PO DAILY Review of Systems Except as stated in HPI: all other systems reviewed are Neg General / Constitutional: No: Fever Eyes: No: Visual changes HENT: No: Headaches Cardiovascular: No: Chest Pain or Discomfort Respiratory: No: Shortness of Breath Gastrointestinal: No: Abdominal Pain Genitourinary: No: Dysuria Musculoskeletal: Positive: Pain (MILD LOW BACK PAIN) Skin: No Rash Neurologic: No: Weakness Psychiatric: No: Depression Endocrine: No: Polydipsia Hematologic/Lymphatic: No: Easy Bruising Physical Exam Narrative GENERAL: PATIENT IN NO DISTRESS , CUDDLING AND INTERACTING WITH HER . SKIN: Warm and dry. HEAD: Atraumatic. Normocephalic. EYES: Pupils equal and round. No scleral icterus. No injection or drainage. ENT: No nasal bleeding or discharge. Mucous membranes pink and moist. NECK: Trachea midline. No JVD. CARDIOVASCULAR: Regular rate and rhythm. RESPIRATORY: No accessory muscle use. Clear to auscultation. Breath sounds equal bilaterally. GASTROINTESTINAL: Abdomen soft, non-tender, nondistended. MUSCULOSKELETAL: Extremities without clubbing, cyanosis, or edema. No obvious deformities. MINOR TTP OVER SI JOINTS ONLY NEUROLOGICAL: Awake and alert. No obvious cranial nerve deficits. Motor grossly within normal limits. Five out of 5 muscle strength in the arms and legs. Normal speech. PSYCHIATRIC: Appropriate mood and affect; insight and judgment normal. Data Data Last Documented VS Orders Orders Urinalysis - C+S If Indicated (11/16/17 18:56) Urine Culture (11/16/17 19:40) Ed Discharge Order (11/16/17 20:40) Labs Laboratory Tests Test 11/16/17 19:40 Urine Color YELLOW Urine Turbidity HAZY Urine pH 6.0 Urine Specific [place] 1.037 Urine Protein 30 mg/dL Urine Glucose (UA) NEG mg/dL Urine Ketones TRACE mg/dL Urine Occult Blood NEG Urine Nitrite POS Urine Bilirubin NEG Urine Urobilinogen LESS THAN 2.0 MG/DL Urine Leukocyte Esterase LARGE Urine RBC 3 /hpf Urine WBC 14 /hpf Urine Squamous Epithelial Cells 27 /hpf Urine Bacteria MOD /hpf Urine Mucus MANY /lpf Microscopic Urinalysis Comment CULTURE INDICATED MDM Medical Decision Making Medical Screen Exam Complete: Yes Emergency Medical Condition: Yes Medical Record Reviewed: Yes Differential Diagnosis UTI V SI JOINT PAIN V ABD PAIN Narrative Course ua c/w mod to severe uti....low back pain is nonemergent in nature Diagnosis Primary Impression: UTI in Patient Instructions: General Instructions, Urinary Tract Infection in Women ( ED) Scripts Nitrofurantoin Monohydrate Macrocrystals (Macrobid) 100 Mg Capsule 100 MG PO BID for Infection for 7 Days, #14 CAP 0 Refills Prov: Jcarlos Funez MD 11/16/17 Disposition: 01 DISCHARGE HOME Condition: Stable Jcarlos Funez MD Nov 16, 2017 18:55
[2017-11-16 20:01] LABS: BACTERIA, URINE MOD /hpf; BILIRUBIN, URINE NEG (NEG); BLOOD, URINE NEG (NEG); GLUCOSE,URINE NEG (NEG); KETONE, URINE TRACE mg/dL (NEG); MUCUS URINE MANY /lpf (OCC); NITRITE,URINE POS (NEG); SQUAMOUS EPITHELIAL CELL URINE 27 /hpf (0-5); URINE COLOR YELLOW (YELLW/STRAW); URINE LEUKOCYTE ESTERASE LARGE (NEG)
[2017-11-16] MEDS ORDERED: MACR100C2 PO (20:40)
== END 2017-11-16 20:58 | disposition home or self-care (01) ==
LOC: NEPD 16:44
DX: O23.40 Unspecified infection of urinary tract in pregnancy, unspecified trimester (principal); B96.20 Unspecified Escherichia coli [E. coli] as the cause of diseases classified elsewhere; O99.519 Diseases of the respiratory system complicating pregnancy, unspecified trimester; J45.909 Unspecified asthma, uncomplicated; O99.340 Other mental disorders complicating pregnancy, unspecified trimester; F32.9 Major depressive disorder, single episode, unspecified
CPT/HCPCS: 81001; 87077; 87086; 87186; 99283

== ENCOUNTER 2017-12-08 08:41 | Emergency (ER) | payer OTHER ==
[~2017-12-08] VITALS: Ht 154.9 cm; Wt 76.0 kg
[~2017-12-08 08:41] MED LIST changes: +MACR100C2 PO; -OSEL75 PO; +PEDI1CHW16 PO
[2017-12-08 09:16] VITALS: BP 127/61; PULSE 93; RESP 16; TEMP 98.3; O2SAT 100
[2017-12-08] MEDS ORDERED: CLIN300C5 PO (09:48)
--- NOTE | 2017-12-08 09:49 | PD ---
HPI Chief Complaint: Skin Problem Time Seen by Provider: 09:23 Travel History International Travel<30 days: No Contact w/Intl Traveler<30days: No Traveled to known affect area: No History of Present Illness HPI This is a 22-year-old female here with possible abscess to her left groin. She reports the left thigh/groin region became tender 1-2 days ago and today she noticed what she thought was a abscess formation in her bikini line. She denies fever or chills. No abdominal pain. No vaginal discharge or bleeding. Patient is 17 weeks currently. She reports history of prior abscesses to the groin and buttocks region. Symptom severity is mild. Aggravated by tight/formfitting close and touching the area. No alleviating factors. PFSH Past Medical History Hx Anticoagulant Therapy: No ADHD: No Asthma: Yes Depression: Yes Cancer: No Cardiovascular Problems: No Chemotherapy: No Cerebrovascular Accident: No Developmental Delay: No Diabetes: No Diminished Hearing: No Psychiatric: Yes (DEPRESSION) Respiratory: Yes Immunizations Current: Yes Migraines: No Seizures: No Thyroid Disease: No Ulcer: No Tetanus Vaccination: < 5 Years ?: LMP: 09/2017 : 4 Para: 2 Miscarriage: 1 : 0 Past Surgical History Surgical History: No Previous Surgery Hysterectomy: No Other Surgery: No Social History Alcohol Use: No Tobacco Use: No Substance Use: No Allergies-Medications (Allergen,Severity, Reaction): Coded Allergies: No Known Allergies (Unverified Adverse Reaction, Unknown, 12/08/17) Reported Meds & Prescriptions Reported Meds & Active Scripts Active Reported Gummies Children Multivitamin (Pediatric Multivitamin No.30) 1 Each Tab.chew 2 Tab PO DAILY Review of Systems Except as stated in HPI: all other systems reviewed are Neg General / Constitutional: No: Fever Eyes: No: Visual changes HENT: No: Headaches Cardiovascular: No: Chest Pain or Discomfort Respiratory: No: Shortness of Breath Gastrointestinal: No: Abdominal Pain Genitourinary: No: Dysuria Skin: No Rash Neurologic: No: Weakness Physical Exam Narrative GENERAL: Alert and well-appearing 22-year-old female SKIN: Warm and dry. Small 2 x 1 cm area of induration to the left mons pubis. No fluctuance. No drainage. HEAD: Normocephalic. EYES: No injection or drainage. NECK: Supple CARDIOVASCULAR: Regular rate and rhythm. RESPIRATORY: Breath sounds equal bilaterally. No accessory muscle use. GASTROINTESTINAL: Abdomen soft, non-tender, nondistended. MUSCULOSKELETAL: No cyanosis, or edema. BACK: No CVA tenderness. Data Data Last Documented VS Vital Signs Date Time Temp Pulse Resp B/P (MAP) Pulse Ox O2 Delivery O2 Flow Rate FiO2 12/08/17 09:16 98.3 93 16 127/61 (83) 100 MDM Medical Decision Making Medical Screen Exam Complete: Yes Emergency Medical Condition: Yes Differential Diagnosis Early abscess, folliculitis, cellulitis Narrative Course 22-year-old female here with early abscess formation to the left mons pubis region. She is nontoxic appearing. Her vital signs are stable. Abdomen is soft and nontender. The area is indurated without fluctuance. I do not feel the area is ready for incision and drainage today. She will be prescribed clindamycin. Instructed to apply warm compresses several times throughout the day. Return in one to 2 days for recheck and I&D at that time Diagnosis Primary Impression: Abscess Referrals: Primary Care Physician Additional Instructions: Antibiotics as directed. Apply warm compresses to the area several times per day. Tylenol as needed for pain. Return in 1-2 days for recheck and possible incision and drainage at that time. Scripts Clindamycin (Clindamycin) 300 Mg Cap 300 MG PO Q6H for Infection for 10 Days, #40 CAP 0 Refills Prov: Deirdre Bower 12/08/17 Disposition: 01 DISCHARGE HOME Condition: Stable Deirdre Bower Dec 08, 2017 09:48
== END 2017-12-08 10:08 | disposition home or self-care (01) ==
LOC: NEPK 08:41
DX: O26.892 Other specified pregnancy related conditions, second trimester (principal); L02.214 Cutaneous abscess of groin; J45.909 Unspecified asthma, uncomplicated
CPT/HCPCS: 99283

== ENCOUNTER 2017-12-08 20:57 | Emergency (ER) | payer OTHER ==
[~2017-12-08 20:57] MED LIST changes: +CLIN300C5 PO
[2017-12-08 21:03] VITALS: BP 127/58; PULSE 75; RESP 15; TEMP 98.8; O2SAT 100
--- NOTE | 2017-12-09 12:12 | PD ---
HPI Chief Complaint: Skin Problem Time Seen by Provider: 21:03 Travel History International Travel<30 days: No Contact w/Intl Traveler<30days: No Traveled to known affect area: No History of Present Illness HPI 22-year-old female presents the emergency department for evaluation of swelling of her labia. Patient was seen and evaluated earlier. She was started on oral antibiotics. She states that they did not drain the area as they told her there is nothing to drain. Patient states she's been following discharge instructions with the pain is getting worse. Denies any new injury. No fever or chills. PFSH Past Medical History Hx Anticoagulant Therapy: No ADHD: No Asthma: Yes Depression: Yes Cancer: No Cardiovascular Problems: No Chemotherapy: No Cerebrovascular Accident: No Developmental Delay: No Diabetes: No Diminished Hearing: No Psychiatric: Yes (DEPRESSION) Respiratory: Yes Immunizations Current: Yes Migraines: No Seizures: No Thyroid Disease: No Ulcer: No : 4 Para: 2 Miscarriage: 1 : 0 Past Surgical History Hysterectomy: No Other Surgery: No Social History Alcohol Use: No Tobacco Use: No Substance Use: No Allergies-Medications (Allergen,Severity, Reaction): Coded Allergies: No Known Allergies (Unverified Adverse Reaction, Unknown, 12/09/17) Reported Meds & Prescriptions Reported Meds & Active Scripts Active Clindamycin (Clindamycin HCl) 300 Mg Cap 300 Mg PO Q6H 10 Days Reported Gummies Children Multivitamin (Pediatric Multivitamin No.30) 1 Each Tab.chew 2 Tab PO DAILY Review of Systems Except as stated in HPI: all other systems reviewed are Neg Physical Exam Narrative Well-nourished female patient, in no acute distress. She appears nontoxic. Even respirations. Normal heart rate. Abdomen is nondistended. She results from these. She speaks clearly. Data Data Last Documented VS Vital Signs Date Time Temp Pulse Resp B/P (MAP) Pulse Ox O2 Delivery O2 Flow Rate FiO2 12/08/17 21:03 98.8 75 15 127/58 (81) 100 MDM Medical Decision Making Medical Screen Exam Complete: Yes Emergency Medical Condition: Yes Medical Record Reviewed: Yes Differential Diagnosis Abscess versus cellulitis versus folliculitis Narrative Course 22-year-old female presents to [facility] department for evaluation a labial swelling. Workup is initiated in triage. Prior to the placement, patient chooses to leave AMA: The risks of leaving against medical advice without further evaluation treatment were discussed with the patient. These risks include cardiac dysfunction, cardiac dysrhythmia, possible heart attack, possible stroke or . The patient indicated understanding of these risks and appeared to have the capacity to make this decision.A Diagnosis Primary Impression: Left against medical advice Additional Impression: Labial infection Patient Instructions: General Instructions Departure Forms: Tests/Procedures Disposition: 07 AGAINST MEDICAL ADVICE Condition: Stable Dianna Hernandez Dec 09, 2017 12:12
== END 2017-12-08 21:29 | disposition left against medical advice (07) ==
LOC: NED 20:57
DX: N76.2 Acute vulvitis (principal); Z53.21 Procedure and treatment not carried out due to patient leaving prior to being seen by health care provider; J45.909 Unspecified asthma, uncomplicated
CPT/HCPCS: 99281

== ENCOUNTER 2017-12-09 08:42 | Emergency (ER) | payer OTHER ==
[~2017-12-09] VITALS: Ht 154.9 cm; Wt 75.0 kg
[~2017-12-09 08:42] MED LIST changes: -MACR100C2 PO
[2017-12-09 08:44] VITALS: BP 122/50; PULSE 96; RESP 15; TEMP 98.1; O2SAT 100
--- NOTE | 2017-12-09 10:08 | PD ---
HPI Chief Complaint: Skin Problem Time Seen by Provider: 09:55 Travel History International Travel<30 days: No Contact w/Intl Traveler<30days: No Traveled to known affect area: No History of Present Illness HPI Patient comes emergency department complaining of an abscess vaginal area. Patient reports been ongoing for several days. Patient reports she was seen here yesterday started on antibiotics and told to do sitz baths as well as warm compresses. Patient reports she has been doing this however continues to have the pain described as a pressure throbbing-like pain without radiation. Pain is worse with palpation she is unable to close her leg secondary to the pain. Patient reports that she gets abscesses with every this being her third . Patient reports that the abscesses never rupture on their own and always has to be cut open. Denies any fevers. PFSH Past Medical History Hx Anticoagulant Therapy: No ADHD: No Asthma: Yes Depression: Yes Cancer: No Cardiovascular Problems: No Chemotherapy: No Cerebrovascular Accident: No Developmental Delay: No Diabetes: No Diminished Hearing: No Psychiatric: Yes (DEPRESSION) Respiratory: Yes Immunizations Current: Yes Migraines: No Seizures: No Thyroid Disease: No Ulcer: No ?: Unknown LMP: 09/2017 : 4 Para: 2 Miscarriage: 1 : 0 Past Surgical History Hysterectomy: No Other Surgery: No Social History Alcohol Use: No Tobacco Use: No Substance Use: No Allergies-Medications (Allergen,Severity, Reaction): Coded Allergies: No Known Allergies (Unverified Adverse Reaction, Unknown, 12/09/17) Reported Meds & Prescriptions Reported Meds & Active Scripts Active Clindamycin (Clindamycin HCl) 300 Mg Cap 300 Mg PO Q6H 10 Days Reported Gummies Children Multivitamin (Pediatric Multivitamin No.30) 1 Each Tab.chew 2 Tab PO DAILY Review of Systems Except as stated in HPI: all other systems reviewed are Neg Physical Exam Narrative GENERAL: Well-developed, well nourished, in no acute distress, and non-ill appearing. SKIN: Fluctuant abscess noted and left mons pubis. There is no drainage or crepitus. No significant cellulitis or induration. Exam was performed personal staffing administratorANH Stern at all times. HEAD: Atraumatic. Normocephalic. EYES: Pupils equal and round. EOMI. No scleral icterus. No injection or drainage. ENT: No nasal bleeding or discharge. Mucous membranes pink and moist. NECK: Trachea midline. Supple. No nuclear rigidity. RESPIRATORY: No accessory muscle use. No respiratory distress. MUSCULOSKELETAL: No obvious deformities. No clubbing. No cyanosis. No edema. Full range of motion. NEUROLOGICAL: Awake and alert. No obvious cranial nerve deficits. Motor grossly within normal limits. Normal speech. PSYCHIATRIC: Appropriate mood and affect; insight and judgment normal. Data Data Last Documented VS Vital Signs Date Time Temp Pulse Resp B/P (MAP) Pulse Ox O2 Delivery O2 Flow Rate FiO2 12/09/17 08:44 98.1 96 15 122/50 (74) 100 Orders Orders Lidocai-Epi 1%-1:100,000 Inj (Xylocaine- (12/09/17 10:15) Wound Culture And Gram Stain (12/09/17 10:08) Ed Discharge Order (12/09/17 10:29) [facility] Medical Decision Making Medical Screen Exam Complete: Yes Emergency Medical Condition: Yes Differential Diagnosis Abscess, cellulitis, folliculitis, Bartholin's cyst Narrative Course The patient has no evidence of significant cellulitis. There is no evidence of necrotizing fasciitis/ [place] at this time. The patient is already on antibiotics. The patient was given signs and symptoms warnings for worsening infection, such as spreading of redness, increasing pain, and/or swelling, associated heat, or fever or feels worse, and instructed to return immediately if these signs or symptoms worsen. The patient is to return in 2 days for recheck. Sooner if worsens or as needed. The patient agrees with plan. Patient in no obvious distress upon re-evaluation. Any questions/concerns in reference to patient diagnosis/condition discussed and clarified prior to patient's discharge. Reinforced sheer importance of close follow up with patient 's primary physician or primary care clinic or to return here in 2 days for recheck. Instructed patient to return to ED immediately, if symptoms return/ worsen. Patient showed understanding of above instructions. Further instructions and recommendations were detailed in discharge paperwork. Patient ambulated without difficulty out of ED at discharge. Procedures Procedure Narrative INCISION AND DRAINAGE OF ABSCESS: Verbal consent was obtained. The area was prepped. A subcutaneous wheal of 1% Xylocaine with epi with a total number 2 mL was used to anesthetize the area. The area was properly anesthetized. A number 11 scalpel was used to make a 1/2 -cm incision across the area of the abscess. The abscess was drained and irrigated with normal saline. 1/2 inch iodoform packing was placed in the wound. Sterile dressing applied by nurse. Patient tolerated procedure well. Patient advised to return here in 2 days to have packing removed and wound rechecked. Patient verbalized understanding. Procedures performed in presence of staffing administratorANH Stern at all times. Diagnosis Primary Impression: Abscess Patient Instructions: Abscess (ED), Abscess Incision and Drainage (DC), General Instructions Additional Instructions: Follow-up with your primary care physician or return here in 2 days for recheck. Take all antibiotics as previously prescribed. Continue warm compresses and/or sitz baths. Return to the emergency department if symptoms get worse. Disposition: 01 DISCHARGE HOME Condition: Stable Jaylen Camarillo Dec 09, 2017 10:08
[2017-12-09] MEDS ORDERED: LIDOCAINE 1%/EPINEPHrine 1:100,000 SOLN 50 ML VIAL INFIL ONE (10:15)
== END 2017-12-09 10:56 | disposition home or self-care (01) ==
LOC: NEPK 08:42
DX: L02.91 Cutaneous abscess, unspecified (principal)
CPT/HCPCS: 10061; 86403; 87070

== ENCOUNTER 2018-01-10 19:29 | Emergency (ER) | payer OTHER ==
[2018-01-10 20:32] VITALS: BP 114/74; PULSE 75; RESP 16; TEMP 98.5; O2SAT 100
[2018-01-10] MEDS ORDERED: diphenhydrAMINE HCL 25 MG CAP PO ONE (21:00)
[2018-01-10] MEDS ORDERED: SODIUM CHLOR 0.9% 1000 ML INJ 1,000 ML IV ONE (21:00)
[2018-01-10] MEDS ORDERED: ACETAMINOPHEN 325 MG TAB PO ONE (21:00)
--- NOTE | 2018-01-10 21:58 | RADRPT ---
EXAM DATE/TIME: 01/10/2018 21:04 [facility] COMPARISON: CHEST SINGLE AP, September 28, 2017, 19:43. INDICATIONS : Left sided chest pain. MEDICAL HISTORY : None. SURGICAL HISTORY : None. ENCOUNTER: Initial ACUITY: 1 day PAIN SCORE: 5/10 LOCATION: chest FINDINGS: A single view of the chest demonstrates the lungs to be symmetrically aerated without evidence of mas s, infiltrate or effusion. The cardiomediastinal contours are unremarkable. Osseous structures are intact. CONCLUSION: No acute disease. Avinash Euceda MD on January 10, 2018 at 21:55 Board Certified Radiologist. This report was verified electronically.
[2018-01-10 22:03] LABS: AUTOMATED NEUTROPHIL # 6.1 TH/MM3 (1.8-7.7); BASOPHIL % 0.4 % (0.0-2.0); EOSINOPHIL # 0.1 TH/MM3 (0-0.4); HEMATOCRIT 29.3 % (35.0-46.0); HEMOGLOBIN 10.1 GM/DL (11.6-15.3); LYMPH % 28.8 % (9.0-44.0); LYMPHOCYTE # 2.8 TH/MM3 (1.0-4.8); MEAN CELL VOLUME 83.5 FL (80.0-100.0); MEAN CORPUSCULAR HEMOGLOBIN 28.9 PG (27.0-34.0); MEAN CORPUSCULAR HGB CONC 34.6 % (32.0-36.0); MEAN PLATELET VOLUME 7.8 FL (7.0-11.0); MONO % 6.4 % (0.0-8.0); MONOCYTE # 0.6 TH/MM3 (0-0.9); NEUT % 63.4 % (16.0-70.0); PLATELET COUNT 357 TH/MM3 (150-450); RED BLOOD COUNT 3.52 MIL/MM3 (4.00-5.30); RED CELL DISTRIBUTION WIDTH 13.4 % (11.6-17.2); WHITE BLOOD COUNT 9.6 TH/MM3 (4.0-11.0)
[2018-01-10 22:07] LABS: AMORPHOUS SEDIMENT, URINE RARE; BACTERIA, URINE OCC /hpf; BILIRUBIN, URINE NEG (NEG); BLOOD, URINE NEG (NEG); GLUCOSE,URINE NEG (NEG); KETONE, URINE TRACE mg/dL (NEG); MUCUS URINE MANY /lpf (OCC); NITRITE,URINE NEG (NEG); PH, URINE 6.5 (5.0-8.5); SQUAMOUS EPITHELIAL CELL URINE 22 /hpf (0-5); URINE COLOR YELLOW (YELLW/STRAW); URINE LEUKOCYTE ESTERASE SMALL (NEG)
[2018-01-10 22:13] LABS: PROTHROMBIN TIME - PATIENT 10.2 SEC (9.8-11.6)
[2018-01-10 22:19] LABS: ALT (GPT) 12 U/L (10-53)
[2018-01-10 22:22] LABS: ALKALINE PHOSPHATASE 61 U/L (45-117); TOTAL BILIRUBIN ADULT 0.1 MG/DL (0.2-1.0); TOTAL PROTEIN 6.8 GM/DL (6.4-8.2)
[2018-01-10 22:28] LABS: ALBUMIN 2.7 GM/DL (3.4-5.0); AST (GOT) 18 U/L (15-37); BICARBONATE 23.1 MEQ/L (21.0-32.0); BLOOD UREA NITROGEN 8 MG/DL (7-18); CALCIUM 8.4 MG/DL (8.5-10.1); CHLORIDE 109 MEQ/L (98-107); CREATININE 0.63 MG/DL (0.50-1.00); GLOMERULAR FILTRATION RATE 143 ML/MIN (>89); GLUCOSE,RANDOM 77 MG/DL (74-106); SODIUM (NA) 139 MEQ/L (136-145)
--- NOTE | 2018-01-10 22:35 | PD ---
HPI Chief Complaint: Headache Time Seen by Provider: 20:56 Travel History International Travel<30 days: No Contact w/Intl Traveler<30days: No Traveled to known affect area: No History of Present Illness HPI Patient is a 22 year old female, 6 months , who comes in complaining of chest pain, headache and pressure in her vaginal area. She denies any leakage of fluids. She says the pain is under her left breast and in her left side. She denies dysuria, but says she has some urgency and frequency. She denies SOB , cough, fevers, leg swelling. She has not taken anything for any of her symptoms. She says with her son, she had some premature labor and then had to be induced for blood pressure issues. She denies blurred vision or dizziness. She denies nausea or vomiting. Severity is mild to moderate. PFSH Past Medical History Hx Anticoagulant Therapy: No ADHD: No Asthma: Yes Depression: Yes Cancer: No Cardiovascular Problems: No Chemotherapy: No Cerebrovascular Accident: No Developmental Delay: No Diabetes: No Diminished Hearing: No Psychiatric: Yes (DEPRESSION) Respiratory: Yes Immunizations Current: Yes Migraines: No Seizures: No Thyroid Disease: No Ulcer: No ?: : 4 Para: 2 Miscarriage: 1 : 0 Past Surgical History Hysterectomy: No Other Surgery: No Social History Alcohol Use: No Tobacco Use: No Substance Use: No Allergies-Medications (Allergen,Severity, Reaction): Coded Allergies: No Known Allergies (Unverified Adverse Reaction, Unknown, 12/09/17) Reported Meds & Prescriptions Reported Meds & Active Scripts Active No Active Prescriptions or Reported Medications Review of Systems Except as stated in HPI: all other systems reviewed are Neg General / Constitutional: No: Fever, Chills Eyes: No: Blurred Vision HENT: Positive: Headaches Cardiovascular: Positive: Chest Pain or Discomfort Respiratory: No: Cough, Shortness of Breath Gastrointestinal: Positive: Abdominal Pain, No: Nausea, Vomiting Skin: No Rash, No Change in Pigmentation Neurologic: No: Weakness, Dizziness Physical Exam Narrative GENERAL: Awake and alert, in no acute distress. SKIN: Focused skin assessment warm/dry. No wounds or signs of infection. HEAD: Atraumatic. Normocephalic. EYES: Pupils equal and round. No scleral icterus. ENT: Mucous membranes pink and moist. NECK: Trachea midline. No JVD. CARDIOVASCULAR: Regular rate and rhythm. No murmur appreciated. RESPIRATORY: No accessory muscle use. Clear to auscultation. Breath sounds equal bilaterally. GASTROINTESTINAL: Abdomen soft, non-tender, nondistended. MUSCULOSKELETAL: No obvious deformities. No clubbing. No cyanosis. No edema. NEUROLOGICAL: Awake and alert. No obvious cranial nerve deficits. Motor grossly within normal limits. Normal speech. PSYCHIATRIC: Appropriate mood and affect; insight and judgment normal. Data Data Last Documented VS Vital Signs Date Time Temp Pulse Resp B/P (MAP) Pulse Ox O2 Delivery O2 Flow Rate FiO2 01/10/18 20:32 98.5 75 16 114/74 (87) 100 Orders Orders Iv Access Insert/Monitor (01/10/18 20:56) Complete Blood Count With Diff (01/10/18 20:56) Comprehensive Metabolic Panel (01/10/18 20:56) Act Partial Throm Time (Ptt) (01/10/18 20:56) Prothrombin Time / Inr (Pt) (01/10/18 20:56) Urinalysis - C+S If Indicated (01/10/18 20:56) Chest, Single Ap (01/10/18 ) Sodium Chlor 0.9% 1000 Ml Inj (Ns 1000 M (01/10/18 21:00) Acetaminophen (Tylenol) (01/10/18 21:00) Diphenhydramine (Benadryl) (01/10/18 21:00) Troponin I (01/10/18 22:14) Electrocardiogram (01/10/18 ) Labs Laboratory Tests Test 01/10/18 21:15 White Blood Count 9.6 TH/MM3 Red Blood Count 3.52 MIL/MM3 Hemoglobin 10.1 GM/DL Hematocrit 29.3 % Mean Corpuscular Volume 83.5 FL Mean Corpuscular Hemoglobin 28.9 PG Mean Corpuscular Hemoglobin Concent 34.6 % Red Cell Distribution Width 13.4 % Platelet Count 357 TH/MM3 Mean Platelet Volume 7.8 FL Neutrophils (%) (Auto) 63.4 % Lymphocytes (%) (Auto) 28.8 % Monocytes (%) (Auto) 6.4 % Eosinophils (%) (Auto) 1.0 % Basophils (%) (Auto) 0.4 % Neutrophils # (Auto) 6.1 TH/MM3 Lymphocytes # (Auto) 2.8 TH/MM3 Monocytes # (Auto) 0.6 TH/MM3 Eosinophils # (Auto) 0.1 TH/MM3 Basophils # (Auto) 0.0 TH/MM3 CBC Comment DIFF FINAL Differential Comment Prothrombin Time 10.2 SEC Prothromb Time International Ratio 1.0 RATIO Activated Partial Thromboplast Time 25.4 SEC Urine Color YELLOW Urine Turbidity HAZY Urine pH 6.5 Urine Specific [place] 1.032 Urine Protein 30 mg/dL Urine Glucose (UA) NEG mg/dL Urine Ketones TRACE mg/dL Urine Occult Blood NEG Urine Nitrite NEG Urine Bilirubin NEG Urine Urobilinogen 2.0 MG/DL Urine Leukocyte Esterase SMALL Urine RBC 6 /hpf Urine WBC 7 /hpf Urine Squamous Epithelial Cells 22 /hpf Urine Amorphous Sediment RARE Urine Bacteria OCC /hpf Urine Mucus MANY /lpf Microscopic Urinalysis Comment CULT NOT INDICATED Blood Urea Nitrogen 8 MG/DL Creatinine 0.63 MG/DL Random Glucose 77 MG/DL Total Protein 6.8 GM/DL Albumin 2.7 GM/DL Calcium Level 8.4 MG/DL Alkaline Phosphatase 61 U/L Aspartate Amino Transf (AST/SGOT) 18 U/L Alanine Aminotransferase (ALT/SGPT) 12 U/L Total Bilirubin 0.1 MG/DL Sodium Level 139 MEQ/L Potassium Level 3.2 MEQ/L Chloride Level 109 MEQ/L Carbon Dioxide Level 23.1 MEQ/L Anion Gap 7 MEQ/L Estimat Glomerular Filtration Rate 143 ML/MIN Troponin I LESS THAN 0.02 NG/ML MDM Medical Decision Making Medical Screen Exam Complete: Yes Emergency Medical Condition: Yes Medical Record Reviewed: Yes Differential Diagnosis dehydration vs URI vs UTI Narrative Course Patient is a 22 year old female who comes in complaining of chest pain and abdominal pain with a headache and vaginal pressure. Exam shows no acute abnormalities. IV established, labs sent. Labs show no acute abnormalities other than some bacteria in her urine. Given IVF and Tylenol. Discharged with prescription for Macrobid. I spoke with the OB hospitalist who agrees for the patient to go up to L&D triage to evaluate the baby. Patient escorted upstairs. Diagnosis Primary Impression: UTI (urinary tract infection) in in second trimester Patient Instructions: General Instructions, Urinary Tract Infection in (ED) Additional Instructions: Drink plenty of fluids. Take all of your antibiotic. Follow-up with your OB. Return to the ED as needed for any worsening symptoms. Scripts Nitrofurantoin Monohydrate Macrocrystals (Macrobid) 100 Mg Capsule 100 MG PO BID for Infection for 7 Days, #14 CAP 0 Refills Prov: Diana Mckeon MD 01/10/18 Disposition: 01 DISCHARGE HOME Condition: Stable Diana Mckeon MD Jan 10, 2018 22:35
[2018-01-10] MEDS ORDERED: MACR100C2 PO (22:56)
--- NOTE | 2018-01-11 17:06 | EKG ---
Date Performed: 01/10/2018 Time Performed: 22:42:05 PTAGE: 22 years EKG: Sinus rhythm WITH MARKED SINUS ARRHYTHMIA BORDERLINE ECG NO PREVIOUS TRACING DOCTOR: Nicolas Rudd Interpretating Date/Time 01/11/2018 17:06:07
== END 2018-01-11 00:05 | disposition home or self-care (01) ==
LOC: NEPC 19:29 → HOBED 01-11 00:05
DX: O23.42 Unspecified infection of urinary tract in pregnancy, second trimester (principal); O99.412 Diseases of the circulatory system complicating pregnancy, second trimester; I49.8 Other specified cardiac arrhythmias; O99.512 Diseases of the respiratory system complicating pregnancy, second trimester; J45.909 Unspecified asthma, uncomplicated; O99.89 Other specified diseases and conditions complicating pregnancy, childbirth and the puerperium; R07.9 Chest pain, unspecified; Z3A.00 Weeks of gestation of pregnancy not specified
CPT/HCPCS: 71045; 80053; 81001; 84484; 85025; 85610; 85730; 93005; 99285; J7030

== ENCOUNTER 2018-01-10 23:29 | Emergency (ER) | payer OTHER ==
[~2018-01-10 23:29] MED LIST changes: +MACR100C2 PO
--- NOTE | 2018-01-11 00:04 | PD ---
HPI Chief Complaint cp, ctxs Date Seen: Jan 10, 2018 Time Seen: 23:58 Travel History International Travel<30 Days: No Contact w/Intl Traveler<30Days: No Known Affected Area: No History of Present Illness HPI pt. is a 22 y/o @ 21 4/7 weeks present to [facility] s/p er visit 2/2 cp and cramping. pt. states had sever martin and cp and went to ed. medically cleared, but reported some uterine ctxs. pt. states resolved following tylenol in ed. + FM, no lof/vb, no ctxs now. Weeks Gestation: 21 Para: 2 : 4 History Past Medical History Medical History: Denies Significant Hx Obstetric History Obstetric History , s/p x 2, sab x 1 Past Surgical History Surgical History: No Previous Surgery Family History Family History: Negative Social History Alcohol Use: No Tobacco Use: No Substance Abuse: No Allergies-Medications (Allergen,Severity, Reaction): Coded Allergies: No Known Allergies (Unverified Adverse Reaction, Unknown, 12/09/17) Home Meds Active Scripts Nitrofurantoin Monohydrate Macrocrystals (Macrobid) 100 Mg Capsule, 100 MG PO BID for Infection for 7 Days, #14 CAP 0 Refills Prov:Diana Mckeon MD 01/10/18 Discontinued Reported Medications Pediatric Multivitamin No.30 (Gummies Children Multivitamin) 1 Each Tab.chew, 2 TAB PO DAILY 11/16/17 Discontinued Scripts Clindamycin (Clindamycin) 300 Mg Cap, 300 MG PO Q6H for Infection for 10 Days, # 40 CAP 0 Refills Prov:Deirdre Bower 12/08/17 Review of Systems Except as stated in HPI: all other systems reviewed are Neg Physical Exam Narrative GENERAL: Well-nourished, well-developed patient. SKIN: Warm and dry. HEAD: Normocephalic and atraumatic. EYES: No scleral icterus. No injection or drainage. ENT: No nasal drainage noted. Mucous membranes pink. Airway patent. NECK: Supple, trachea midline. No JVD. CARDIOVASCULAR: Regular rate and rhythm without murmurs, gallops, or rubs. RESPIRATORY: Breath sounds equal bilaterally. No accessory muscle use. ABDOMEN/GI: Abdomen soft, non-tender, bowel sounds present, no rebound, no guarding Gravid Uterine Contractions: none FHT's: + EXTREMITIES: No cyanosis or edema. BACK: Nontender without obvious deformity. No CVA tenderness. NEUROLOGICAL: Awake and alert. Motor and sensory grossly within normal limits. Five out of 5 muscle strength in all muscle groups. Normal speech. Data Data Vital Signs Reviewed: Yes Orders Orders [facility] Counselor Clear For Discharge (01/10/18 ) MDM Medical Record Reviewed: Yes Plan pt. to be d/c to home. pt. given precautions for return. all ? answered. f/u as sched. Diagnosis Diagnosis: Primary Impression: Uterine contractions during Additional Impression: 21 weeks gestation of Disposition: 01 DISCHARGE HOME Patient Instructions: General Instructions, Abdominal Pain in (ED) Additional Instructions: come back if strong crampingand low back pain, contractions, fluid leakage, bleeding or significant decrease in baby movement. also if symptoms of frequent headaches that do not respond to tylenol, vision problems, increased swelling , feet, face and hands. Departure Forms: Tests/Procedures Nitesh Jean Jr., MD Jan 11, 2018 00:04
== END 2018-01-11 00:05 | disposition home or self-care (01) ==
LOC: HOBED 23:29
DX: O26.892 Other specified pregnancy related conditions, second trimester (principal); N85.8 Other specified noninflammatory disorders of uterus; Z3A.21 21 weeks gestation of pregnancy
CPT/HCPCS: 99282

== ENCOUNTER 2018-02-01 19:40 | Emergency (ER) | payer OTHER ==
[~2018-02-01 19:40] MED LIST changes: -CLIN300C5 PO; -PEDI1CHW16 PO
--- NOTE | 2018-02-01 20:55 | PD ---
HPI Chief Complaint Pelvic pressure Date Seen: Feb 01, 2018 Time Seen: 20:51 Travel History International Travel<30 Days: No Contact w/Intl Traveler<30Days: No Known Affected Area: No History of Present Illness HPI 22-year-old 4 para 2 AB 1 at 25 weeks gestation who presented with concerns of pelvic pressure and feeling dizzy at work. She denies leakage of fluid or bleeding. She reports movement. No abdominal pain or perceived contractions. History Past Medical History Medical History: Denies Significant Hx Past Surgical History Surgical History: No Previous Surgery Family History Family History: Negative Social History Alcohol Use: No Tobacco Use: No Substance Abuse: No Allergies-Medications (Allergen,Severity, Reaction): Coded Allergies: No Known Allergies (Unverified Adverse Reaction, Unknown, 12/09/17) Home Meds Active Scripts Nitrofurantoin Monohydrate Macrocrystals (Macrobid) 100 Mg Capsule, 100 MG PO BID for Infection for 7 Days, #14 CAP 0 Refills Prov:Diana Mckeon MD 01/10/18 Review of Systems Except as stated in HPI: all other systems reviewed are Neg Physical Exam Narrative GENERAL: Well-nourished, well-developed patient. SKIN: Warm and dry. HEAD: Normocephalic and atraumatic. EYES: No scleral icterus. No injection or drainage. ENT: No nasal drainage noted. Mucous membranes pink. Airway patent. NECK: Supple, trachea midline. No JVD. CARDIOVASCULAR: Regular rate and rhythm without murmurs, gallops, or rubs. RESPIRATORY: Breath sounds equal bilaterally. No accessory muscle use. ABDOMEN/GI: Abdomen soft, non-tender, bowel sounds present, no rebound, no guarding Gravid to [-] weeks size Fundal Height: [25-] GENITOURINARY: External Genitalia: intact and normal in appearance BUS glands: [-] Cervix: [-] Dilatation: [0-] Effacement: [long-] Station: [-high] Presentation: [-] Membranes: [ruptured] Uterine Contractions: [no-] FHT's: Category: [-] Baseline: [-] Reactive: [-y] Variability: [-] Decels: [-] EXTREMITIES: No cyanosis or edema. BACK: Nontender without obvious deformity. No CVA tenderness. NEUROLOGICAL: Awake and alert. Motor and sensory grossly within normal limits. Five out of 5 muscle strength in all muscle groups. Normal speech. Data Data Vital Signs Reviewed: Yes MDM Medical Record Reviewed: Yes Diagnosis Diagnosis: Primary Impression: 25 weeks gestation of Additional Impression: Round ligament pain Disposition: 01 DISCHARGE HOME Condition: Good Demarcus Villa MD Feb 01, 2018 20:55
[2018-02-10] MEDS ORDERED: MACR100C2 PO (22:30)
== END 2018-02-01 21:10 | disposition home or self-care (01) ==
LOC: HOBED 19:40
DX: O99.89 Other specified diseases and conditions complicating pregnancy, childbirth and the puerperium (principal); R10.2 Pelvic and perineal pain; Z3A.25 25 weeks gestation of pregnancy
CPT/HCPCS: 99283

== ENCOUNTER 2018-02-08 15:22 | Emergency (ER) | payer OTHER ==
--- NOTE | 2018-02-08 16:23 | PD ---
HPI Chief Complaint Urinary frequency for 3 hours none prior to that and none yesterday Date Seen: February 08, 2018 Time Seen: 16:18 Travel History International Travel<30 Days: No Contact w/Intl Traveler<30Days: No Known Affected Area: No History of Present Illness HPI 22-year-old white female 25 weeks sees [facility] presents complaining of urinary frequency for the last 3 hours basically every time she states that she has to go to every 5 minutes and only very small amount of urine comes out each time. She has no abdominal pain, bleeding, leakage of fluid per vagina. NST is reactive no contractions seen Weeks Gestation: 25 Para: 2 : 4 History Obstetric History Obstetric History 2 vaginal deliveries 1 early loss Social History Alcohol Use: No Tobacco Use: No Substance Abuse: No Allergies-Medications (Allergen,Severity, Reaction): Coded Allergies: No Known Allergies (Unverified Adverse Reaction, Unknown, 12/09/17) Home Meds Active Scripts Nitrofurantoin Monohydrate Macrocrystals (Macrobid) 100 Mg Capsule, 100 MG PO BID for Infection for 7 Days, #14 CAP 0 Refills Prov:Diana Mckeon MD 01/10/18 Review of Systems General / Constitutional: No: Fever, Weight Gain, Chills, Other Eyes: No: Diploplia, Blurred Vision, Visual changes, Pain, Photophobia HENT: No: Headaches, Vertigo, Lightheadedness Cardiovascular: No: Irregular Rhythm, Chest Pain or Discomfort, Palpitations, Tachycardia, Syncope, Varicosities, Edema, Cyanosis Respiratory: No: Cough, Short of Breath, Other Gastrointestinal: No: Nausea, Vomiting, Diarrhea Genitourinary: Frequency, No: Decreased Urinary Output, Oliguria Musculoskeletal: No: Limited ROM, Weakness, Cramping, Edema, Pain Skin: No Rash, No Itching, No Dryness, No Lumps, No Change in Pigmentation, No Change in Nails, No Alopecia, No Lesions Neurologic: No: Weakness, Dizziness, Syncope, Focal Abnormalities, Coordination Problem, Headache, Slurred Speech, Seizures Psychiatric: No: Depression, Suicidal Ideations, Homicidal Ideation Endocrine: No: Heat Intolerance, Cold Intolerance, Polydipsia, Polyuria, Other Physical Exam Narrative GENERAL: Well-nourished, well-developed patient. SKIN: Warm and dry. HEAD: Normocephalic and atraumatic. EYES: No scleral icterus. No injection or drainage. ENT: No nasal drainage noted. Mucous membranes pink. Airway patent. NECK: Supple, trachea midline. No JVD. CARDIOVASCULAR: Regular rate and rhythm without murmurs, gallops, or rubs. RESPIRATORY: Breath sounds equal bilaterally. No accessory muscle use. BREASTS: Bilateral exam showed no masses , no retractions, no nipple discharge. ABDOMEN/GI: Abdomen soft, non-tender, bowel sounds present, no rebound, no guarding Gravid to [25-] weeks size Fundal Height: [25-] GENITOURINARY: External Genitalia: intact and normal in appearance BUS glands: [-] Cervix: [-post] Dilatation: [-closed] Effacement: [0-] Station: [-3] Membranes: [intact ] Uterine Contractions: [-none] FHT's: Category: [-1] Baseline: [-133] Reactive: [R-] Variability: [mod-] Decels: [-none] EXTREMITIES: No cyanosis or edema. BACK: Nontender without obvious deformity. No CVA tenderness. NEUROLOGICAL: Awake and alert. Motor and sensory grossly within normal limits. Five out of 5 muscle strength in all muscle groups. Normal speech. Data Data Labs Urinalysis on OB ED dipstick is negative MDM Interpretation(s) 22-year-old black female 25 weeks presents [place] of urinary frequency for the last 3 hours. No other problems, cervix is closed, no contractions, heart rate tracing reactive Urinalysis on OB ED is negative Plan Plan the patient be discharged home to avoid acidic foods and drinks that could irritate the bladder and hydrate appropriately. She is to follow-up with her OB provider or return here for further symptomatology Diagnosis Diagnosis: Primary Impression: Urinary frequency Additional Impression: 25 weeks gestation of Disposition: 01 DISCHARGE HOME Condition: Stable Matthieu Faust II, MD February 08, 2018 16:23
[2018-02-10] MEDS ORDERED: MACR100C2 PO (22:30)
== END 2018-02-08 16:36 | disposition home or self-care (01) ==
LOC: HOBED 15:22
DX: O26.892 Other specified pregnancy related conditions, second trimester (principal); R35.0 Frequency of micturition; Z3A.25 25 weeks gestation of pregnancy
CPT/HCPCS: 99284

== ENCOUNTER 2018-02-10 21:47 | Emergency (ER) | payer OTHER ==
[2018-02-10 22:41] LABS: BACTERIA, URINE MOD /hpf; BILIRUBIN, URINE NEG (NEG); BLOOD, URINE NEG (NEG); GLUCOSE,URINE NEG (NEG); KETONE, URINE 80 mg/dL (NEG); MUCUS URINE MOD /lpf (OCC); NITRITE,URINE POS (NEG); PH, URINE 6.5 (5.0-8.5); RENAL EPITHELIAL CELLS 1 /hpf; SQUAMOUS EPITHELIAL CELL URINE 5 /hpf (0-5); URINE COLOR YELLOW (YELLW/STRAW); URINE LEUKOCYTE ESTERASE LARGE (NEG); WHITE BLOOD CELL CLUMPS FEW
[2018-02-10 22:43] LABS: COMMENT (UR) CULTURE INDICATED; CULTURE IF INDICATED CULTURE INDICATED
== END 2018-02-10 23:03 | disposition home or self-care (01) ==
LOC: HOBED 21:47
DX: O23.42 Unspecified infection of urinary tract in pregnancy, second trimester (principal); Z3A.26 26 weeks gestation of pregnancy
CPT/HCPCS: 81001; 87077; 87086; 87186; 99283

== ENCOUNTER 2018-02-23 15:26 | Emergency (ER) | payer OTHER ==
[~2018-02-23] VITALS: Ht 152.4 cm; Wt 74.0 kg
[2018-02-23 16:12] VITALS: BP 126/65; PULSE 99; RESP 16; TEMP 98.5; O2SAT 100
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
[2018-02-23] MEDS ORDERED: ACETAMINOPHEN 325 MG TAB PO ONE (18:00)
--- NOTE | 2018-02-23 18:26 | RADRPT ---
EXAM DATE/TIME: 02/23/2018 17:55 [facility] COMPARISON: No previous studies available for comparison. INDICATIONS : Right hand, 2nd digit swelling, possible foreign body. MEDICAL HISTORY : None. SURGICAL HISTORY : None. ENCOUNTER: Initial ACUITY: 1 day PAIN SCORE: 2/10 LOCATION: Right hand, 2nd digit. FINDINGS: Examination of the second digit of the right hand demonstrates no evidence of fracture or dislocation . No radiopaque foreign bodies are seen. Mild soft tissue swelling of the second digit. CONCLUSION: Soft tissue swelling of the second digit. No radiopaque foreign body. Mateo Zimmer Jr., MD on February 23, 2018 at 18:23 Board Certified Radiologist. This report was verified electronically.
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
== END 2018-02-23 20:18 | disposition home or self-care (01) ==
LOC: NEPD 15:26 → HOBED 20:18
DX: O99.89 Other specified diseases and conditions complicating pregnancy, childbirth and the puerperium (principal); R51 Headache; M79.644 Pain in right finger(s); O62.9 Abnormality of forces of labor, unspecified; Z86.59 Personal history of other mental and behavioral disorders; Y04.2XXA Assault by strike against or bumped into by another person, initial encounter; Z3A.27 27 weeks gestation of pregnancy
CPT/HCPCS: 73140

== ENCOUNTER 2018-03-01 17:29 | Emergency (ER) | payer OTHER ==
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
[2018-03-01 18:43] LABS: BACTERIA, URINE MOD /hpf; BILIRUBIN, URINE NEG (NEG); BLOOD, URINE NEG (NEG); GLUCOSE,URINE NEG (NEG); KETONE, URINE 150 mg/dL (NEG); MUCUS URINE MOD /lpf (OCC); NITRITE,URINE POS (NEG); RENAL EPITHELIAL CELLS <1 /hpf; SQUAMOUS EPITHELIAL CELL URINE 29 /hpf (0-5); TRANSITIONAL EPI CELLS, URINE <1 /hpf; URINE COLOR YELLOW (YELLW/STRAW); URINE LEUKOCYTE ESTERASE LARGE (NEG); WHITE BLOOD CELL CLUMPS RARE
[2018-03-01] MEDS ORDERED: cefTRIAXone INJ 2,000 MG in SODIUM CHLORIDE 0.9% INJ 100 ML IV ONE (19:00)
[2018-03-01] MEDS ORDERED: LACTATED RINGER'S 1000 ML INJ 1,000 ML IV ONE (19:00)
[2018-03-01] MEDS ORDERED: ACETAMINOPHEN 325 MG TAB PO SCH (20:45)
== END 2018-03-01 22:20 | disposition home or self-care (01) ==
LOC: HOBED 17:29
DX: O26.893 Other specified pregnancy related conditions, third trimester (principal); R10.9 Unspecified abdominal pain; Z3A.29 29 weeks gestation of pregnancy
CPT/HCPCS: 81001; 87077; 87086; 87186; 96361; 96365; 99284; J0696; J7120

== ENCOUNTER 2018-03-17 23:08 | Emergency (ER) | payer OTHER ==
[~2018-03-17] VITALS: Ht 152.4 cm; Wt 73.9 kg
[2018-03-18] MEDS ORDERED: LACTATED RINGER'S 1000 ML INJ 1,000 ML IV SCH (00:07)
[2018-03-18] MEDS ORDERED: TERBUTALINE INJ 1 MG/ML AMP SQ PRN (00:15)
[2018-03-18 00:51] LABS: BACTERIA, URINE MANY /hpf; BILIRUBIN, URINE NEG (NEG); BLOOD, URINE SMALL (NEG); GLUCOSE,URINE NEG (NEG); KETONE, URINE NEG (NEG); MUCUS URINE FEW /lpf (OCC); NITRITE,URINE NEG (NEG); PH, URINE 7.5 (5.0-8.5); SQUAMOUS EPITHELIAL CELL URINE 3 /hpf (0-5); URINE COLOR YELLOW (YELLW/STRAW); URINE LEUKOCYTE ESTERASE LARGE (NEG)
[2018-03-18] MEDS ORDERED: BETAMETHASONE SOD PHOS/ACETATE SUSP 30 MG/5 ML VIAL IM SCH (01:15)
[2018-03-18] MEDS ORDERED: SODIUM CHLORIDE 0.9% FLUSH 10 ML FLUSH IV FLUSH PRN (01:15)
--- NOTE | 2018-03-18 01:15 | PD ---
HPI Chief Complaint Contractions Date Seen: Mar 17, 2018 Time Seen: 23:30 Travel History International Travel<30 Days: No Contact w/Intl Traveler<30Days: No Known Affected Area: No History of Present Illness HPI Patient is 22-year-old black female 31 weeks who is well-known to our service she is here very frequently for multiple problems presents complaining now of contractions, she is boni every 3-4 minutes painfully. She has no bleeding or leakage of fluid. NST is reactive Weeks Gestation: 31 Para: 2 : 4 Miscarriage: 1 History Obstetric History Obstetric History 2 vaginal deliveries 1 early loss Social History Alcohol Use: No Tobacco Use: No Substance Abuse: No Allergies-Medications (Allergen,Severity, Reaction): Coded Allergies: No Known Allergies (Verified Adverse Reaction, Unknown, 02/23/18) Home Meds Active Scripts Nitrofurantoin Monohydrate Macrocrystals (Macrobid) 100 Mg Cap, 100 MG PO BID for Infection for 7 Days, #14 CAP 0 Refills Prov:Matthieu Faust II, MD 03/18/18 Terbutaline Sulfate (Terbutaline Sulfate) 5 Mg Tab, 5 MG PO Q6H for Asthma Management for 14 Days, #56 TAB 1 Refill Take every 6 hours 3 times/day Prov:Matthieu Faust II, MD 03/18/18 Review of Systems General / Constitutional: No: Fever, Weight Gain, Chills, Other Eyes: No: Diploplia, Blurred Vision, Visual changes, Pain, Photophobia HENT: No: Headaches, Vertigo, Lightheadedness Cardiovascular: No: Irregular Rhythm, Chest Pain or Discomfort, Palpitations, Tachycardia, Syncope, Varicosities, Edema, Cyanosis Respiratory: No: Cough, Short of Breath, Other Gastrointestinal: Abdominal Pain, No: Nausea, Vomiting, Diarrhea Genitourinary: No: Decreased Urinary Output, Oliguria Musculoskeletal: No: Limited ROM, Weakness, Cramping, Edema, Pain Skin: No Rash, No Itching, No Dryness, No Lumps, No Change in Pigmentation, No Change in Nails, No Alopecia, No Lesions Neurologic: No: Weakness, Dizziness, Syncope, Focal Abnormalities, Coordination Problem, Headache, Slurred Speech, Seizures Psychiatric: No: Depression, Suicidal Ideations, Homicidal Ideation Endocrine: No: Heat Intolerance, Cold Intolerance, Polydipsia, Polyuria, Other Physical Exam Narrative GENERAL: Well-nourished, well-developed patient. SKIN: Warm and dry. HEAD: Normocephalic and atraumatic. EYES: No scleral icterus. No injection or drainage. ENT: No nasal drainage noted. Mucous membranes pink. Airway patent. NECK: Supple, trachea midline. No JVD. CARDIOVASCULAR: Regular rate and rhythm without murmurs, gallops, or rubs. RESPIRATORY: Breath sounds equal bilaterally. No accessory muscle use. BREASTS: Bilateral exam showed no masses , no retractions, no nipple discharge. ABDOMEN/GI: Abdomen soft, -tender, bowel sounds present, no rebound, no guarding Gravid to [30-] weeks size Fundal Height: [-30] GENITOURINARY: External Genitalia: intact and normal in appearance BUS glands: [-] Cervix: [-post] Dilatation: [1-] Effacement: [30-] Station: [-3] Presentation: [vtx-] Membranes: [intact ] Uterine Contractions: [q 3 min-] FHT's: Category: [-1] Baseline: [-133] Reactive: [-R] Variability: [-mod] Decels: [0-] EXTREMITIES: No cyanosis or edema. BACK: Nontender without obvious deformity. No CVA tenderness. NEUROLOGICAL: Awake and alert. Motor and sensory grossly within normal limits. Five out of 5 muscle strength in all muscle groups. Normal speech. Data Data Orders Orders Vital Signs (Adult) .ON ADMISSION (03/18/18 00:07) ^ Labor Status (03/18/18 00:07) Urinalysis - C+S If Indicated (03/18/18 00:07) ^ Non Stress Test (03/18/18 00:07) ^ Hydration (03/18/18 00:07) Fibronectin (03/18/18 00:07) Lactated Ringer's 1000 Ml Inj (Lr 1000 M (03/18/18 00:07) Ob/Psych Drug Screen, Urine (03/18/18 00:07) Terbutaline Inj (Brethine Inj) (03/18/18 00:15) Fentanyl Inj (Fentanyl Inj) (03/18/18 00:15) Urine Culture (03/18/18 00:00) Attending Discharge Order (03/18/18 ) Sodium Chloride 0.9% Flush (Ns Flush) (03/18/18 09:00) Sodium Chloride 0.9% Flush (Ns Flush) (03/18/18 01:15) Betamethasone Inj ([place] Soluspan In (03/18/18 01:15) Labs Laboratory Tests Test 03/18/18 00:00 03/18/18 00:08 Urine Color YELLOW Urine Turbidity HAZY Urine pH 7.5 Urine Specific [place] 1.030 Urine Protein 30 Urine Glucose (UA) NEG Urine Ketones NEG Urine Occult Blood SMALL Urine Nitrite NEG Urine Bilirubin NEG Urine Urobilinogen 2.0 Urine Leukocyte Esterase LARGE Urine RBC 18 Urine WBC 12 Urine Squamous Epithelial Cells 3 Urine Bacteria MANY Urine Mucus FEW Microscopic Urinalysis Comment CULTURE INDICATED Urine Opiates Screen NEG Urine Barbiturates Screen NEG Urine Amphetamines Screen NEG Urine Benzodiazepines Screen NEG Urine Cocaine Screen NEG Urine Cannabinoids Screen NEG Fibronectin POSITIVE Date/Time Source Procedure Growth Status 03/18/18 00:00 Urine Clean Catch Urine Culture Pending Received MDM Interpretation(s) Patient is 22-year-old white female at 31 weeks who presents with contractions and contraction pain. She has no leakage of fluid or bleeding. Her NST is reactive and she is boni every 3-4 minutes. This contractions responded well to IV fluid, subcu terbutaline, and IV fentanyl, her FFN is positive. Urinalysis positive for UTI Plan Plan for this patient is to receive betamethasone injection 12 mg now and since she is not boni at this time will try to discharge home with p.o. terbutaline and bedrest and have her return tomorrow for a second shot of betamethasone Diagnosis Diagnosis: Primary Impression: Threatened labor, antepartum Additional Impression: 31 weeks gestation of Disposition: DISCHARGE HOME Condition: Stable Scripts Nitrofurantoin Monohydrate Macrocrystals (Macrobid) 100 Mg Cap 100 MG PO BID for Infection for 7 Days, #14 CAP 0 Refills Prov: Matthieu Faust II, MD 03/18/18 Terbutaline Sulfate (Terbutaline Sulfate) 5 Mg Tab 5 MG PO Q6H for Asthma Management for 14 Days, #56 TAB 1 Refill Take every 6 hours 3 times/day Prov: Matthieu Faust II, MD 03/18/18 Departure Forms: Work Release Enter return to work date: Mar 20, 2018 Special Instructions: needs bedrest for threatened labor at 31 weeks approx 48 hrs Matthieu Faust II, MD Mar 18, 2018 01:15
[2018-03-18] MEDS ORDERED: TERB5 PO (01:16)
[2018-03-18] MEDS ORDERED: MACR100C2 PO (01:17)
[2018-03-18] MEDS ORDERED: SODIUM CHLORIDE 0.9% FLUSH 10 ML FLUSH IV FLUSH SCH (09:00)
== END 2018-03-18 01:38 | disposition home or self-care (01) ==
LOC: HOBED 23:08
DX: O47.03 False labor before 37 completed weeks of gestation, third trimester (principal); O23.43 Unspecified infection of urinary tract in pregnancy, third trimester; Z3A.31 31 weeks gestation of pregnancy; Z79.899 Other long term (current) drug therapy
CPT/HCPCS: 80307; 81001; 82731; 87077; 87086; 87186; 96361; 96372; 96374; 96375; 99284; G0481; J0702; J3010; J3105; J7120

== ENCOUNTER → 2018-03-18 | Outpatient (CLI) | payer OTHER ==
[~2018-03-18] MED LIST changes: +BETAMETHASONE SOD PHOS/ACETATE SUSP 30 MG/5 ML VIAL IM ONE; +NITR1CAP36 PO; +TERB5 PO
== END ==
LOC: HOBG 21:30
PROVIDERS: ATTEND Obstetrics & Gynecology
DX: O60.03 Preterm labor without delivery, third trimester (principal); Z3A.31 31 weeks gestation of pregnancy
CPT/HCPCS: 96372; J0702

== ENCOUNTER 2018-03-21 15:18 | Emergency (ER) | payer OTHER ==
[~2018-03-21 15:18] MED LIST changes: -BETAMETHASONE SOD PHOS/ACETATE SUSP 30 MG/5 ML VIAL IM ONE; -NITR1CAP36 PO
--- NOTE | 2018-03-21 16:05 | PD ---
HPI Chief Complaint Contractions, lower back pain Travel History International Travel<30 Days: No Contact w/Intl Traveler<30Days: No Known Affected Area: No History of Present Illness HPI 22-year-old 012, IUP at 32.2 CARE complicated by history of preeclampsia, gestational hypertension, positive fibronectin, contractions, chronic UTIs, history of major depression The patient presents complaining of the onset of painful contractions last night. She is unable to quantify the frequency or intensity but reports that they were worse last night than they are today. She reports she is still having some contractions today with some lower back pain. She has not been timing the contractions. She is unable to give a frequency to the contractions. There were no aggravating or alleviating factors, no attempted treatments. The patient reports that her urine is bright yellow. She denies any leaking of fluid or vaginal bleeding. She denies any headache, visual changes, right upper quadrant or epigastric pain. She reports good movement today. Weeks Gestation: 32 Para: 2 : 4 Miscarriage: 1 History Past Medical History Narrative Medical Preeclampsia Gestational hypertension with this Obstetric History Obstetric History 2 at term SAB 1 Past Surgical History Narrative Surgical Denies Family History Narrative Family History DM HTN Social History Alcohol Use: No Tobacco Use: No Substance Abuse: No Allergies-Medications (Allergen,Severity, Reaction): Coded Allergies: No Known Allergies (Verified Adverse Reaction, Unknown, 02/23/18) Home Meds Active Scripts Nitrofurantoin Monohydrate Macrocrystals (Macrobid) 100 Mg Cap, 100 MG PO BID for Infection for 7 Days, #14 CAP 0 Refills Prov:Matthieu Faust II, MD 03/18/18 Terbutaline Sulfate (Terbutaline Sulfate) 5 Mg Tab, 5 MG PO Q6H for Asthma Management for 14 Days, #56 TAB 1 Refill Take every 6 hours 3 times/day Prov:Matthieu Faust II, MD 03/18/18 Review of Systems Except as stated in HPI: all other systems reviewed are Neg Physical Exam Narrative GENERAL: Well-nourished, well-developed patient. SKIN: Warm and dry. HEAD: Normocephalic and atraumatic. EYES: No scleral icterus. No injection or drainage. ENT: No nasal drainage noted. Mucous membranes pink. Airway patent. NECK: Supple, trachea midline. No JVD. CARDIOVASCULAR: Regular rate and rhythm without murmurs, gallops, or rubs. RESPIRATORY: Breath sounds equal bilaterally. No accessory muscle use. BREASTS: Deferred ABDOMEN/GI: Abdomen soft, non-tender, bowel sounds present, no rebound, no guarding Gravid GENITOURINARY: External Genitalia: intact and normal in appearance. Normal BUS. No cervical or vaginal masses noted. Physiologic discharge. Grossly normal rugated. SVE 1/30/-3, posterior. Examination is essentially unchanged from prior exam on 03/17/18. Exam recheck prior to discharge and unchanged FHT's: heart tones are in the 140s with moderate long-term variability, good accelerations, no decelerations noted. This is a reassuring heart rate tracing that is appropriate for gestational age. There is a category 1 heart rate tracing reactive NST. EXTREMITIES: No cyanosis or edema. BACK: Nontender without obvious deformity. No CVA tenderness. NEUROLOGICAL/musculoskeletal: Awake and alert. Motor and sensory grossly within normal limits. Grossly normal muscle strength in all muscle groups. Normal speech. Grossly normal range of motion, gait Psychiatric: Grossly normal memory and affect MDM Plan Assessment/plan: 1. IUP at 32.2 2. Threatened labor: Patient has a recent positive fibronectin on March 17, 2018. She received betamethasone on 03/17 and 03/18/18. There is no evidence of active labor at this time. Patient was encouraged to have good hydration. Strict labor precautions. Contractions resolved with IVF and terbutaline, patient insistent she is having contractions although infrequent on monitor 3. History of frequent urinary tract infections: Was treated for a recent UTI at her last visit. Urinalysis shows many bacteria, prior urine culture shows > 100,000 E. coli. Sensitivities reviewed. Rocephin 1g given, then patient to complete macrobid BID, followed by q day supression. Discussed risks and signs/ symptoms of pyelonephritis. All of the patient's questions were answered and she expressed understanding. Encouraged good hydration. 4. well-being: Reassuring testing with reactive NST and category 1 heart rate tracing. heart rate is reassuring and appropriate for gestational age. kick counts daily 5. Gestational hypertension: The patient has stable blood pressures today and no signs or symptoms of preeclampsia 6. Follow-up: Follow-up with primary OB in 2 days or sooner if needed Diagnosis Diagnosis: Primary Impression: UTI (urinary tract infection) in in second trimester Additional Impressions: 32 weeks gestation of False labor before 37 completed weeks of gestation during in third trimester, antepartum Disposition: 01 DISCHARGE HOME Condition: Marilyn Navarrete MD Mar 21, 2018 16:05
--- NOTE | 2018-03-21 16:13 | PD ---
History of Present Illness History of Present Illness NST report Indications: IUP at 32 weeks, gestational hypertension, h/o preeclampsia, contractions/threatened labor NST: heart tones are in the 140s with moderate long-term variability, good accelerations, no decelerations noted. This is a reassuring heart rate tracing that is appropriate for gestational age. There is a category 1 heart rate tracing reactive NST. F/U as clinically indicated Final diagosis: IUP at 32 weeks, gestational hypertension, h/o preeclampsia, contractions/threatened labor, no evidence of active labor, persistent UTI Marilyn Jones MD Mar 21, 2018 16:13
[2018-03-21] MEDS ORDERED: LACTATED RINGER'S 1000 ML INJ 1,000 ML IV ONE (16:15)
[2018-03-21 17:24] LABS: BACTERIA, URINE MANY /hpf; BILIRUBIN, URINE NEG (NEG); BLOOD, URINE NEG (NEG); GLUCOSE,URINE NEG (NEG); KETONE, URINE NEG (NEG); MUCUS URINE FEW /lpf (OCC); NITRITE,URINE NEG (NEG); SQUAMOUS EPITHELIAL CELL URINE <1 /hpf (0-5); URINE COLOR YELLOW (YELLW/STRAW); URINE LEUKOCYTE ESTERASE NEG (NEG)
[2018-03-21] MEDS ORDERED: TERBUTALINE INJ 1 MG/ML AMP ONE (17:52)
[2018-03-21 18:00] VITALS: RESP 16
[2018-03-21] MEDS ORDERED: TERBUTALINE INJ 1 MG/ML AMP SQ ONE (18:00)
[2018-03-21] MEDS ORDERED: cefTRIAXone INJ 1,000 MG in SODIUM CHLORIDE 0.9% INJ 100 ML IV ONE (18:00)
== END 2018-03-21 19:00 | disposition home or self-care (01) ==
LOC: HOBED 15:18
DX: O47.03 False labor before 37 completed weeks of gestation, third trimester (principal); O23.43 Unspecified infection of urinary tract in pregnancy, third trimester; B96.20 Unspecified Escherichia coli [E. coli] as the cause of diseases classified elsewhere; O13.3 Gestational [pregnancy-induced] hypertension without significant proteinuria, third trimester; Z87.440 Personal history of urinary (tract) infections
CPT/HCPCS: 59025; 81001; 87077; 87086; 87186; 96365; 96372; 99283; J0696; J3105; J7120

== ENCOUNTER 2018-03-29 15:31 | Observation (INO) | payer OTHER ==
[~2018-03-29] VITALS: Ht 152.4 cm; Wt 75.3 kg
[2018-03-29 16:15] VITALS: TEMP 98.5
[2018-03-29] MEDS: LACTATED RINGER'S 1000 ML INJ 1,000 ML IV SCH ×2 (16:17→17:33)
[2018-03-29] MEDS: NIFEdipine 10 MG CAP PO SCH ×4 (16:17→17:00)
[2018-03-29] MEDS ORDERED: MAGNESIUM SULFATE 4 GM ONE (17:14)
[2018-03-29 17:17] LABS: BACTERIA, URINE FEW /hpf; BILIRUBIN, URINE NEG (NEG); BLOOD, URINE MOD (NEG); GLUCOSE,URINE NEG (NEG); KETONE, URINE NEG (NEG); MUCUS URINE FEW /lpf (OCC); NITRITE,URINE NEG (NEG); SQUAMOUS EPITHELIAL CELL URINE 2 /hpf (0-5); URINE COLOR YELLOW (YELLW/STRAW); URINE LEUKOCYTE ESTERASE SMALL (NEG)
[2018-03-29] MEDS ORDERED: LACTATED RINGER'S 1000 ML INJ 1,000 ML IV SCH (17:26)
[2018-03-29] MEDS ORDERED: ONDANSETRON ODT 4 MG TAB PO PRN (17:30)
[2018-03-29] MEDS ORDERED: ZOLPIDEM TARTRATE 5 MG TAB PO PRN (17:30)
[2018-03-29] MEDS ORDERED: SODIUM CHLORIDE 0.9% FLUSH 10 ML FLUSH IV FLUSH PRN (17:30)
[2018-03-29] MEDS ORDERED: cefTRIAXone INJ 1,000 MG in SODIUM CHLORIDE 0.9% INJ 100 ML IV SCH (17:30)
[2018-03-29] MEDS ORDERED: ACETAMINOPHEN 325 MG TAB PO PRN (17:30)
[2018-03-29] MEDS ORDERED: ALUMINUM/MAGNESIUM/SIMETH 30 ML CUP PO PRN (17:30)
[2018-03-29 17:49] VITALS: BP 118/62; PULSE 102; RESP 18
[2018-03-29 17:54] LABS: AUTOMATED NEUTROPHIL # 6.4 TH/MM3 (1.8-7.7); BASOPHIL % 0.4 % (0.0-2.0); EOSINOPHIL % 0.5 % (0.0-4.0); HEMATOCRIT 28.6 % (35.0-46.0); HEMOGLOBIN 9.5 GM/DL (11.6-15.3); LYMPH % 22.7 % (9.0-44.0); LYMPHOCYTE # 2.1 TH/MM3 (1.0-4.8); MEAN CELL VOLUME 79.8 FL (80.0-100.0); MEAN CORPUSCULAR HEMOGLOBIN 26.4 PG (27.0-34.0); MEAN CORPUSCULAR HGB CONC 33.1 % (32.0-36.0); MEAN PLATELET VOLUME 7.4 FL (7.0-11.0); MONO % 6.1 % (0.0-8.0); MONOCYTE # 0.6 TH/MM3 (0-0.9); NEUT % 70.3 % (16.0-70.0); PLATELET COUNT 327 TH/MM3 (150-450); RED BLOOD COUNT 3.58 MIL/MM3 (4.00-5.30); RED CELL DISTRIBUTION WIDTH 13.5 % (11.6-17.2); WHITE BLOOD COUNT 9.1 TH/MM3 (4.0-11.0)
--- NOTE | 2018-03-29 18:03 | HHI.HP ---
History & Physical H&P HPI Chief Complaint contractions Date Seen: Mar 29, 2018 Time Seen: 15:45 Travel History International Travel<30 Days: No Contact w/Intl Traveler<30Days: No Known Affected Area: No History of Present Illness HPI 22 yo presents at 33 3/7 wks c/o contractions for 1 hr. +FM, c/o scant vaginal bleeding. denies LOF. complicated by hx of contractions. pt had steroids and mag earlier this month. care with financial sales manager. states all other pregnancies were full term. denies recent intercourse. History (Limited) History Past Medical History Medical History: Denies Significant Hx Obstetric History Obstetric History X 2 SAB X 1 Past Surgical History Surgical History: No Previous Surgery Family History Family History: Negative Social History Alcohol Use: No Tobacco Use: No Substance Abuse: No Allergies-Medications Allergies-Medications (Allergen,Severity, Reaction): Coded Allergies: No Known Allergies (Verified Adverse Reaction, Unknown, 02/23/18) Home Meds Active Scripts Nitrofurantoin Monohydrate Macrocrystals (Macrobid) 100 Mg Cap, 100 MG PO BID for Infection for 7 Days, #14 CAP 0 Refills Prov:Matthieu Faust II, MD 03/18/18 Terbutaline Sulfate (Terbutaline Sulfate) 5 Mg Tab, 5 MG PO Q6H for Asthma Management for 14 Days, #56 TAB 1 Refill Take every 6 hours 3 times/day Prov:Matthieu Faust II, MD 03/18/18 ROS Review of Systems Except as stated in HPI: all other systems reviewed are Neg Physical Exam Physical Exam Vital Signs Date Time Temp Pulse Resp B/P (MAP) Pulse Ox O2 Delivery O2 Flow Rate FiO2 03/29/18 16:15 98.5 Narrative GENERAL: Well-nourished, well-developed patient. SKIN: Warm and dry. HEAD: Normocephalic and atraumatic. EYES: No scleral icterus. No injection or drainage. ENT: No nasal drainage noted. Mucous membranes pink. Airway patent. NECK: Supple, trachea midline. No JVD. CARDIOVASCULAR: Regular rate and rhythm without murmurs, gallops, or rubs. RESPIRATORY: Breath sounds equal bilaterally. No accessory muscle use. BREASTS: Bilateral exam showed no masses , no retractions, no nipple discharge. ABDOMEN/GI: Abdomen soft, non-tender, bowel sounds present, no rebound, no guarding Gravid GENITOURINARY: External Genitalia: intact and normal in appearance Cervix: [-] 2/50/-2 Dilatation: [-] Effacement: [-] Station: [-] Presentation: [-] Membranes: [intact ] Uterine Contractions: [-] q 2-5 min FHT's: Category: [-] 1 Baseline: [-] 140s Reactive: [-] Variability: [-] Decels: [-] EXTREMITIES: No cyanosis or edema. BACK: Nontender without obvious deformity. No CVA tenderness. NEUROLOGICAL: Awake and alert. Motor and sensory grossly within normal limits. Five out of 5 muscle strength in all muscle groups. Normal speech. Data Data Data Vital Signs Reviewed: Yes Orders Orders Vital Signs (Adult) .ON ADMISSION (03/29/18 15:57) ^ Labor Status (03/29/18 15:57) Urinalysis - C+S If Indicated (03/29/18 15:57) ^ Non Stress Test (03/29/18 15:57) ^ Hydration (03/29/18 15:57) Lactated Ringer's 1000 Ml Inj (Lr 1000 M (03/29/18 15:57) Nifedipine (Procardia) (03/29/18 16:00) Magnesium Sulfate 4 Gm Premix (Magnesium (03/29/18 17:14) Urine Culture (03/29/18 16:45) Place In Observation (03/29/18 ) Diet Liquid (03/29/18 Dinner) Vital Signs (Adult) [id number] AWAKE (03/29/18 17:26) Heart (03/29/18 17:26) Activity Bed Rest With Brp (03/29/18 17:26) Complete Blood Count With Diff (03/29/18 17:26) Lactated Ringer's 1000 Ml Inj (Lr 1000 M (03/29/18 17:26) Acetaminophen (Tylenol) (03/29/18 17:30) Itexnqiz-Kix-Mbidg-Iron Prenat (Stuartna (03/30/18 09:00) Docusate Sodium (Colace) (03/30/18 09:00) Al-Mag Hy-Si 40-40-4 Mg/Ml Liq (Mag-Al P (03/29/18 17:30) Sodium Chloride 0.9% Flush (Ns Flush) (03/29/18 21:00) Sodium Chloride 0.9% Flush (Ns Flush) (03/29/18 17:30) Zolpidem (Ambien) (03/29/18 17:30) Ondansetron Odt (Zofran Odt) (03/29/18 17:30) Us Ob Limited (03/29/18 17:26) Ob/Psych Drug Screen, Urine (03/29/18 17:26) Hold Clot (03/29/18 17:26) Ceftriaxone Inj (Rocephin Inj) (03/29/18 17:30) Labs Laboratory Tests Test 03/29/18 16:45 Urine Color YELLOW Urine Turbidity HAZY Urine pH 6.0 Urine Specific [place] 1.019 Urine Protein 30 Urine Glucose (UA) NEG Urine Ketones NEG Urine Occult Blood MOD Urine Nitrite NEG Urine Bilirubin NEG Urine Urobilinogen LESS THAN 2 Urine Leukocyte Esterase SMALL Urine RBC 4 Urine WBC 28 Urine Squamous Epithelial Cells 2 Urine Bacteria FEW Urine Mucus FEW Microscopic Urinalysis Comment CULTURE INDICATED Date/Time Source Procedure Growth Status 03/29/18 16:45 Urine Clean Catch Urine Culture Pending Received MDM MDM Medical Record Reviewed: Yes Interpretation(s) Contractions UTI Narrative Course / MDM pt refused procardia and magnesium for tocolysis. understands risks of prematurity. Plan IV hydrate Rocephin OB u/s check GBS Diagnosis Diagnosis: Primary Impression: uterine contractions in third trimester, antepartum Additional Impression: UTI (urinary tract infection) in Adan Rojas MD Mar 29, 2018 18:03
[2018-03-29 19:44] VITALS: BP 117/65; PULSE 80; RESP 18; TEMP 99.2
[2018-03-29] MEDS ORDERED: SODIUM CHLORIDE 0.9% FLUSH 10 ML FLUSH IV FLUSH SCH (21:00)
[2018-03-30 02:19] VITALS: TEMP 98.8
[2018-03-30 02:22] VITALS: BP 112/72; PULSE 98; RESP 18
[2018-03-30 07:00] VITALS: RESP 18; TEMP 98
[2018-03-30 07:12] VITALS: BP 129/82; PULSE 83
[2018-03-30 07:50] VITALS: RESP 17
--- NOTE | 2018-03-30 08:03 | PD.OB.ANTE ---
Subjective Interval History pt feels the same. slept all night. +irregular contractions, denies vaginal bleeding or LOF. c/o bump under her chin, denies pain or fever. Objective Vital Signs Vital Signs Date Time Temp Pulse Resp B/P (MAP) Pulse Ox O2 Delivery O2 Flow Rate FiO2 03/30/18 07:50 17 03/30/18 07:12 83 129/82 (98) 03/30/18 07:00 98.0 18 03/30/18 02:22 98 18 112/72 (85) 03/30/18 02:19 98.8 03/29/18 19:44 80 117/65 (82) 03/29/18 19:44 99.2 03/29/18 19:44 18 03/29/18 17:49 102 18 118/62 (80) 03/29/18 16:15 98.5 Lab & Micro Results Test 03/29/18 16:15 03/29/18 16:45 03/29/18 17:55 White Blood Count 9.1 TH/MM3 Red Blood Count 3.58 MIL/MM3 Hemoglobin 9.5 GM/DL Hematocrit 28.6 % Mean Corpuscular Volume 79.8 FL Mean Corpuscular Hemoglobin 26.4 PG Mean Corpuscular Hemoglobin Concent 33.1 % Red Cell Distribution Width 13.5 % Platelet Count 327 TH/MM3 Mean Platelet Volume 7.4 FL Neutrophils (%) (Auto) 70.3 % Lymphocytes (%) (Auto) 22.7 % Monocytes (%) (Auto) 6.1 % Eosinophils (%) (Auto) 0.5 % Basophils (%) (Auto) 0.4 % Neutrophils # (Auto) 6.4 TH/MM3 Lymphocytes # (Auto) 2.1 TH/MM3 Monocytes # (Auto) 0.6 TH/MM3 Eosinophils # (Auto) 0.0 TH/MM3 Basophils # (Auto) 0.0 TH/MM3 CBC Comment DIFF FINAL Differential Comment Urine Color YELLOW Urine Turbidity HAZY Urine pH 6.0 Urine Specific [place] 1.019 Urine Protein 30 mg/dL Urine Glucose (UA) NEG mg/dL Urine Ketones NEG mg/dL Urine Occult Blood MOD Urine Nitrite NEG Urine Bilirubin NEG Urine Urobilinogen LESS THAN 2 mg/dL Urine Leukocyte Esterase SMALL Urine RBC 4 /hpf Urine WBC 28 /hpf Urine Squamous Epithelial Cells 2 /hpf Urine Bacteria FEW /hpf Urine Mucus FEW /lpf Microscopic Urinalysis Comment CULTURE INDICATED Urine Opiates Screen NEG Urine Barbiturates Screen NEG Urine Amphetamines Screen NEG Urine Benzodiazepines Screen NEG Urine Cocaine Screen NEG Urine Cannabinoids Screen NEG Group B Streptococcus (PCR) POSITIVE Date/Time Source Procedure Growth Status 03/29/18 16:45 Urine Clean Catch Urine Culture Pending Received Physical Exam GENERAL: Well-nourished, well-developed patient. CARDIOVASCULAR: Regular rate and rhythm without murmurs, gallops, or rubs. RESPIRATORY: Breath sounds equal bilaterally. No accessory muscle use. ABDOMEN/GI: Abdomen soft, non-tender. Fundus: [-] GENITOURINARY: External Genitalia: intact and normal in appearance Cervix: [-] 2/50/-3 Uterine Contractions: [-] irregular FHT's: Category: [-] 1 Baseline: [-] Reactive: [-] yes Variability: [-] Decels: [-] EXTREMITIES: No cyanosis or edema, non-tender, without signs of DVT. Assessment and Plan Problem List: (1) ICD Codes: Z34.90 - Encounter for supervision of normal , unspecified , unspecified trimester Qualifiers: Qualified Codes: Z3A.33 - 33 weeks gestation of (2) contractions ICD Codes: O47.9 - False labor, unspecified Status: Acute Plan: stable pt refused medications s/p steroids on 03/18 and 03/19 cervix unchanged d/c home with precautions Adan Rojas MD Mar 30, 2018 08:02
[2018-03-30] MEDS ORDERED: NITR1CAP36 PO (08:19)
--- NOTE | 2018-03-30 08:21 | HHI.DCPOC ---
Discharge Care Plan Diagnosis: (1) UTI (urinary tract infection) in in third trimester (2) contractions Report Symptoms to Your Doctor -Temperature above 100.5 degrees -Redness, of incision or excessive or foul smelling drainage -Unusual pain or calf pain -Increased vaginal bleeding -Painful or difficulty urinating -Feelings of extreme sadness or anxiety after 2 weeks Goals to Promote Your Health * To prevent worsening of your condition and complications * To maintain your health at the optimal level Directions to Meet Your Goals Take your medications as prescribed Follow your dietary instruction Follow activity as directed Ensure plenty of rest for recovery Drink fluids for hydration Keep your appointments as scheduled Take your immunizations and boosters as scheduled If your symptoms worsen call your PCP, if no PCP go to Urgent Care Center or Emergency Room Smoking is Dangerous to Your Health. Avoid second hand smoke Call the 24-hour crisis hotline for domestic abuse at Genaro Briones MD R1 Mar 30, 2018 08:20
[2018-03-30] MEDS ORDERED: DOCUSATE SODIUM 100 MG CAP PO SCH (09:00)
[2018-03-30] MEDS ORDERED: MULTIVIT/MIN/PREN/FOL AC/IRON PRENATAL TAB PO SCH (09:00)
== END 2018-03-30 09:34 | disposition home or self-care (01) ==
LOC: HOBED 15:31 → H2EA 17:48
PROVIDERS: ADMIT Obstetrics & Gynecology; ATTEND Obstetrics & Gynecology
DX: O60.03 Preterm labor without delivery, third trimester (principal); Z3A.33 33 weeks gestation of pregnancy; O23.43 Unspecified infection of urinary tract in pregnancy, third trimester; B95.2 Enterococcus as the cause of diseases classified elsewhere; Z03.89 Encounter for observation for other suspected diseases and conditions ruled out
CPT/HCPCS: 59025; 76815; 80307; 81001; 84112; 85025; 87077; 87086; 87150; 87186; 96361; 96365; 99285; G0378; G0481; J0696; J7120; J3475

== ENCOUNTER 2018-04-06 06:16 | Observation (INO) ==
[2018-04-07 13:21] VITALS: BP 119/73; PULSE 87; RESP 16; TEMP 98
== END 2018-04-06 15:30 | disposition home or self-care (01) ==
LOC: UNDODISOB → H2E 06:16 → HOBED 06:16 → H2E 07:48
PROVIDERS: ADMIT Obstetrics & Gynecology; ATTEND Obstetrics & Gynecology

== ENCOUNTER 2018-04-29 17:32 | Inpatient (IN) ==
--- NOTE | 2018-04-29 17:55 | ED ---
HPI General Chief Complaint: OB/Uterine Contractions Stated Complaint: respiratory Time Seen by Provider: 04/29/18 17:39 Source: patient Mode of arrival: EMS Limitations: no limitations History of Present Illness The patient is a 22-year-old female who presents to the emergency department for shortness of breath. The patient is a who is due in early May, approximately 38 weeks . The patient developed sudden shortness of breath earlier today. EMS states when they arrived fire rescue was on scene and noted that the patient had wheezing and diminished lung sounds. EMS states that the patient's lung sounds were clear for them but they gave 1 albuterol nebulizer prior to arrival. There were no steroids administered. The patient states she does have a history of asthma but has not had exacerbation in years. She denies any new cough denies any wheezing seen. She does complain of shortness of breath and mild chest tightness. She denies any swelling of the lower extremities. The patient denies any known history of pulmonary embolism or DVT. Symptoms are moderate. MD Complaint: shortness of breath Onset (ago): minute(s) Severity: moderate Consistency/Duration: constant Relieving factors: nothing Exacerbating factors: nothing Known history of: asthma Associated symptoms: chest pain Treatment prior to arrival: bronchodilator Related Data Home oxygen amount: none Home Medications Medication Instructions Recorded Confirmed No Known Home Medications 04/06/18 04/29/18 Allergies Allergy/AdvReac Type Severity Reaction Status Date / Time No Known Allergies Allergy Verified 04/20/18 08:25 Review of Systems Except as stated in HPI: all other systems reviewed are negative Cardiovascular Reports chest pain (Tightness) Respiratory Reports dyspnea Gastrointestinal Denies abdominal pain, Denies nausea and Denies vomiting [facility] Medical History Medical History (Acute) Patient denies medical problems (Acute) Surgical History Surgical History No history of previous surgery (Acute) Family History Family History Other Family history of diabetes mellitus Family history of hypertension Social History Social History Substance History: No History of Abuse Second Hand Smoke Exposure: No Smoking Status: Never smoker How Often Do You Have a Drink Containing Alcohol: Never Hx Recent Travel: No Recent Travel in [facility] within the Last 8 Weeks: No Recent Out of Country Travel within the Last 8 Weeks: No Exam Narrative Exam Narrative: GENERAL: Awake, alert, nontoxic-appearing 22-year-old female who appears her stated age and is in mild respiratory distress. SKIN: Focused skin assessment warm/dry. HEAD: Atraumatic. Normocephalic. EYES: No injection or drainage. ENT: No nasal bleeding or discharge. Mucous membranes pink and moist. NECK: Trachea midline. No JVD. CARDIOVASCULAR: Regular rate and rhythm. No murmur appreciated. Heart rate in the 90s per RESPIRATORY: Mild tachypnea with a respiratory rate of 22. Diminished breath sounds in the bases but no audible wheezing. GASTROINTESTINAL: Abdomen gravid. MUSCULOSKELETAL: No obvious deformities. No clubbing. No cyanosis. No edema. NEUROLOGICAL: Awake and alert. No obvious cranial nerve deficits. Motor grossly within normal limits. Normal speech. PSYCHIATRIC: Appropriate mood and affect; insight and judgment normal. Course Initial Documented Vital Signs Temperature 98.9 F 04/29/18 17:54 Pulse Rate 87 04/29/18 17:54 Respiratory Rate 24 04/29/18 17:54 Blood Pressure 156/87 H 04/29/18 17:54 Pulse Oximetry 100 04/29/18 17:54 Last Documented Vital Signs Temperature 98.0 F 04/30/18 08:14 Pulse Rate 62 04/30/18 08:14 Respiratory Rate 18 04/30/18 08:14 Blood Pressure 146/85 H 04/30/18 08:14 Pulse Oximetry 100 04/29/18 17:54 Medical Decision Making MDM Narrative Medical decision making narrative: The patient presents with tachypnea, shortness of breath, and clear lung sounds. The patient has a history of asthma but has not had an exacerbation in several years. The patient received one treatment prior to arrival, she notes minimal relief of her symptoms, but examination of breath sounds reveal slightly diminished but otherwise clear lung sounds bilaterally. The patient's heart rate was in the 90s, there is no obvious hypoxia, may be related to reactive airway disease versus atelectasis versus pulmonary embolism. D-dimer was sent to lab and bilateral lower extremity ultrasounds were ordered. The patient's chest x-ray is unremarkable. EKG was unremarkable. D-dimer unfortunately was positive at 2.25. The patient has shortness of breath with clear lung sounds and clear chest x-ray, no audible wheezing, therefore, VQ scan will be ordered to evaluate for possible pulmonary embolism as there is no other obvious cause of her shortness of breath. Ultrasound was negative for DVT. The patient then developed abdominal cramping , contraction-like pain. The patient was reevaluated at 7:30 PM, her heart rate was 80, the patient states her shortness of breath has resolved. I doubt a true pulmonary embolism if her shortness of breath has resolved on its own without tachycardia or hypoxia. Therefore, the patient is medically cleared to go to labor and delivery for evaluation of the abdominal contractions. She is advised to the shortness of breath returns she may need a VQ scan. The patient agrees and understands. Differential Diagnosis Differential Diagnosis: Differential diagnosis includes pulmonary embolism, DVT , reactive airway disease, atelectasis, pneumonia, pneumothorax. Lab Data Result diagrams: 04/29/18 18:15 04/29/18 18:15 Lab Results 04/29/18 04/29/18 04/29/18 Range/Units 18:15 18:15 18:15 WBC 8.4 (4.0-11.0) th/mm3 RBC 3.65 L (4.00-5.30) mil/mm3 Hgb 9.5 L (11.6-15.3) gm/dL Hct 28.2 L (35.0-46.0) % MCV 77.1 L (80.0-100.0) fL MCH 26.1 L (27.0-34.0) pg MCHC 33.8 (32.0-36.0) % RDW 14.3 (11.6-17.2) % Plt Count 340 (150-450) th/mm3 MPV 7.7 (7.0-11.0) fL Neut % (Auto) 65.2 (16.0-70.0) % Lymph % (Auto) 25.8 (9.0-44.0) % [place] % (Auto) 8.1 H (0.0-8.0) % Eos % (Auto) 0.6 (0.0-4.0) % Baso % (Auto) 0.3 (0.0-2.0) % Neut # (Auto) 5.5 (1.8-7.7) th/mm3 Lymph # (Auto) 2.2 (1.0-4.8) th/mm3 [place] # (Auto) 0.7 (0.0-0.9) th/mm3 Eos # (Auto) 0.1 (0.0-0.4) th/mm3 Baso # (Auto) 0.0 (0.0-0.2) th/mm3 WBC Differential . Differential Comment Auto diff final D-Dimer Quant (PE/DVT) 2.25 H (0.00-0.50) mg/L FEU Sodium 139 (136-145) meq/L Potassium 3.7 (3.5-5.1) meq/L Chloride 110 H (98-107) meq/L Carbon Dioxide 20.1 L (21.0-32.0) meq/L Anion Gap 9 (5-15) meq/L BUN 7 (7-18) mg/dL Creatinine 0.64 (0.50-1.00) mg/dL Estimated GFR Greater than 89 (>89) mL/min Random Glucose 75 (74-106) mg/dL Calcium 8.4 L (8.5-10.1) mg/dL Total Bilirubin 0.3 (0.2-1.0) mg/dL AST 10 L (15-37) U/L ALT 11 (10-53) U/L Alkaline Phosphatase 102 (45-117) U/L Total Protein 6.9 (6.4-8.2) g/dL Albumin 2.4 L (3.4-5.0) g/dL Urine Opiates Screen (Neg) Ur Barbiturates Screen (Neg) Ur Amphetamine Screen (Neg) U Benzodiazepines Scrn (Neg) Urine Cocaine Screen (Neg) U Cannabinoids Screen (Neg) Blood Type 04/29/18 04/29/18 Range/Units 21:10 21:10 WBC (4.0-11.0) th/mm3 RBC (4.00-5.30) mil/mm3 Hgb (11.6-15.3) gm/dL Hct (35.0-46.0) % MCV (80.0-100.0) fL MCH (27.0-34.0) pg MCHC (32.0-36.0) % RDW (11.6-17.2) % Plt Count (150-450) th/mm3 MPV (7.0-11.0) fL Neut % (Auto) (16.0-70.0) % Lymph % (Auto) (9.0-44.0) % [place] % (Auto) (0.0-8.0) % Eos % (Auto) (0.0-4.0) % Baso % (Auto) (0.0-2.0) % Neut # (Auto) (1.8-7.7) th/mm3 Lymph # (Auto) (1.0-4.8) th/mm3 [place] # (Auto) (0.0-0.9) th/mm3 Eos # (Auto) (0.0-0.4) th/mm3 Baso # (Auto) (0.0-0.2) th/mm3 WBC Differential Differential Comment D-Dimer Quant (PE/DVT) (0.00-0.50) mg/L FEU Sodium (136-145) meq/L Potassium (3.5-5.1) meq/L Chloride (98-107) meq/L Carbon Dioxide (21.0-32.0) meq/L Anion Gap (5-15) meq/L BUN (7-18) mg/dL Creatinine (0.50-1.00) mg/dL Estimated GFR (>89) mL/min Random Glucose (74-106) mg/dL Calcium (8.5-10.1) mg/dL Total Bilirubin (0.2-1.0) mg/dL AST (15-37) U/L ALT (10-53) U/L Alkaline Phosphatase (45-117) U/L Total Protein (6.4-8.2) g/dL Albumin (3.4-5.0) g/dL Urine Opiates Screen Neg (Neg) Ur Barbiturates Screen Neg (Neg) Ur Amphetamine Screen Neg (Neg) U Benzodiazepines Scrn Neg (Neg) Urine Cocaine Screen Neg (Neg) U Cannabinoids Screen Neg (Neg) Blood Type A Positive Imaging Data Attestation: I personally reviewed and interpreted this imaging study as follows : My impression: Chest x-ray reveals no acute cardiopulmonary disease Radiologist's impression: Venous Doppler Study 04/29/18 17:47 CONCLUSION: Chest X-Ray 04/29/18 17:55 CONCLUSION: No evidence of DVT ECG Data EKG Prior to Arrival: No Attestation: I personally reviewed and interpreted this ECG as follows: Interpretation: EKG reveals sinus rhythm with sinus arrhythmia. Inverted T waves in lead III. Discharge Plan Discharge Disposition Patient Disposition: 30 Still Patient Discharge Condition Condition: Stable Discharge Details Diagnosis: Dyspnea Physicians Team ED Provider: Matthieu Faust Primary Care Provider: UNKNOWN, Attending Provider: Matthieu Faust Status ED Status: Left Department Discharge Information Discharge Date/Time: 04/29/18 21:45
[2018-04-29 18:22] LABS: Baso % (Auto) 0.3 % (0.0-2.0); Eos # (Auto) 0.1 th/mm3 (0.0-0.4); Eos % (Auto) 0.6 % (0.0-4.0); Hematocrit 28.2 % (35.0-46.0); Hemoglobin 9.5 gm/dL (11.6-15.3); Lymph # (Auto) 2.2 th/mm3 (1.0-4.8); Lymph % (Auto) 25.8 % (9.0-44.0); Mean Corpuscular HGB Conc 33.8 % (32.0-36.0); Mean Corpuscular Hemoglobin 26.1 pg (27.0-34.0); Mean Corpuscular Volume 77.1 fL (80.0-100.0); Mean Platelet Volume 7.7 fL (7.0-11.0); Mono # (Auto) 0.7 th/mm3 (0.0-0.9); Mono % (Auto) 8.1 % (0.0-8.0); Neut # (Auto) 5.5 th/mm3 (1.8-7.7); Neut % (Auto) 65.2 % (16.0-70.0); Platelet Count 340 th/mm3 (150-450); Red Blood Count 3.65 mil/mm3 (4.00-5.30); Red Cell Distribution Width 14.3 % (11.6-17.2); White Blood Count 8.4 th/mm3 (4.0-11.0)
[2018-04-29 18:41] LABS: Alanine Aminotransferase 11 U/L (10-53); Albumin 2.4 g/dL (3.4-5.0); Anion Gap 9 meq/L (5-15); Aspartate Aminotransferase 10 U/L (15-37); Blood Urea Nitrogen 7 mg/dL (7-18); Calcium 8.4 mg/dL (8.5-10.1); Carbon Dioxide 20.1 meq/L (21.0-32.0); Chloride 110 meq/L (98-107); Glomerular Filtration Rate Greater Than 89 mL/min (>89); Glucose,Random 75 mg/dL (74-106); Potassium 3.7 meq/L (3.5-5.1); Sodium 139 meq/L (136-145)
[2018-04-29 18:44] LABS: Alkaline Phosphatase 102 U/L (45-117); Total Protein 6.9 g/dL (6.4-8.2)
--- NOTE | 2018-04-29 19:31 | US ---
EXAM DATE: 04/29/2018 6:25 PM EDT AGE/SEX: 22 years / Female INDICATIONS: Bilateral leg swelling. CLINICAL DATA: This is the patient's initial encounter. Patient reports that signs and symptoms have been present for 1 day and indicates a pain score of 0/10. MEDICAL/SURGICAL HISTORY: . . COMPARISON: No prior exams available for comparison. TECHNIQUE: Venous ultrasound of both lower extremities was performed from the inguinal ligament to t he proximal calf. Real-time, color Doppler and spectral tracing, compression and augmentation techni ques were used. FINDINGS: Right Leg: Normal compression of the deep venous system from the inguinal region to the proximal shalini f. No echogenic clot is seen. Normal response of the venous system to augmentation and respiration. Left Leg: Normal compression of the deep venous system from the inguinal region to the proximal calf . No echogenic clot is seen. Normal response of the venous system to augmentation and respiration. Other: None. CONCLUSION: No DVT. Electronically signed by: Avinash Euceda MD 04/29/2018 7:30 PM EDT
--- NOTE | 2018-04-29 19:53 | XR ---
EXAM DATE: 04/29/2018 6:39 PM EDT AGE/SEX: 22 years / Female INDICATIONS: Short of breath. CLINICAL DATA: This is the patient's initial encounter. Patient reports that signs and symptoms have been present for 1 day and indicates a pain score of 3/10. MEDICAL/SURGICAL HISTORY: None. None. COMPARISON: [facility] [place], CHEST SINGLE AP, 01/10/2018. . FINDINGS: A single AP view of the chest demonstrates the lungs to be symmetrically aerated without evidence of mass, infiltrate or effusion. The cardiomediastinal contours are unremarkable. Osseous structures a re intact. CONCLUSION: No acute cardiopulmonary process. Electronically signed by: Avinash Euceda MD 04/29/2018 7:52 PM EDT
[2018-04-29] MEDS ORDERED: Oxytocin 30 Units/500ml Premix 30 UNITS/500 ML BAG IV.SIG ONE (21:32)
[2018-04-29] MEDS ORDERED: Sodium Chlor 0.9% Inj 500 ML IV.SIG PRN (21:32)
[2018-04-29] MEDS ORDERED: Naloxone Inj 0.4 MG/ML Vial IV.PUSH PRN (21:32)
[2018-04-29] MEDS ORDERED: Sod Chloride 0.9% Inj 1,000 ML IV.CONT PRN (21:32)
[2018-04-29] MEDS ORDERED: fentaNYL Citrate Inj 100 MCG/2 ML Ampul IV.PUSH PRN ×2 (21:32)
[2018-04-29] MEDS ORDERED: Penicillin G Potassium Inj 5,000,000 UNIT in Sodium Chloride 0.9% Inj 100 ML IV.SIG ONE (21:32)
--- NOTE | 2018-04-29 21:35 | ED ---
History of Present Illness Service: 22 yr at 37/6 with history of asthma presents to the ED via [facility] for SOB. Patient was seen down in the ED for asthma excerbation. Patient had sudden shortness of breath earlier today. Patient was noted to have wheezing and diminished lung sounds per EMS. Patient was given 1 albuterol nebulizer prior to arrival. Chest x-ray reviewed no acute coronary pulmonary disease. EKG reveals sinus rhythm, she had inverted T waves in lead III per ED note. Patient was transferred up to OB floor for further evaluation. Patient states that she began having contractions 30 minutes ago when she was examined in the ED. She has been receiving care with Christa Dunbar. She reports no complications with this . Endorses good movement. She denies leakage of fluid, vaginal bleeding, vaginal discharge. Reports that GBS is unknown. Primary Care Physician: UNKNOWN - Inpatient Certification I certify that the inpatient services were ordered in accordance with Medicare regulations governing the order. This includes certification that hospital inpatient services are reasonable and necessary and in the case of services not specified as inpatient-only under 42 CFR 419.22(n), that they are appropriately provided as inpatient services in accordance to with the 2-midnight benchmark under 43 CFR 412.3(e) Estimated Total Length of Stay (Days): 3 Plans for Post Hospital Care: Home Review of Systems All other systems reviewed negative except as stated in HPI PMFSH - History History Provided By: Patient - Medical History Medical History: Medical History (Last Updated 04/29/18 @ 17:57 by Sylvia Dunbar) Patient denies medical problems - Surgical History Surgical History: Surgical History (Last Updated 04/06/18 @ 07:42 by Genaro Briones MD, R2) No history of previous surgery - Family History Family History: Family History (Last Updated 04/06/18 @ 07:43 by Genaro Briones MD, R2) Other Family history of diabetes mellitus Family history of hypertension - Tobacco History Second Hand Smoke Exposure: No Smoking Status: Never smoker - Alcohol History How Often Do You Have a Drink Containing Alcohol: Never - Substance Use History Substance History: No History of Abuse - Travel History History of Recent Travel: No Recent Travel in the [place] Within the Last 8 Weeks: No Recent Travel Out of the Country Within the Last 8 Weeks: No - Immunization History Tetanus Immunization: <5 Years Medications and Allergies Allergies Allergy/AdvReac Type Severity Reaction Status Date / Time No Known Allergies Allergy Verified 04/20/18 08:25 Home Medications Medication Instructions Recorded Confirmed Type No Known Home Medications 04/06/18 04/29/18 History Exam Vital signs: Vital Signs 04/29/18 17:54 04/29/18 20:43 04/29/18 20:46 Temperature 98.9 F 98.5 F Pulse Rate 87 Respiratory Rate 24 16 Blood Pressure 156/87 H 136/80 Pulse Oximetry 100 Intake & Output 04/29/18 04/29/18 04/30/18 06:59 18:59 06:59 Weight 75.296 kg - Constitutional no acute distress - Routine Respiratory Exam Present: CTA bilaterally. Absent: accessory muscle use, wheezes, crackles - Routine Cardiovascular Exam Present: RRR. Absent: murmur, gallop, rubs - Routine Exam Comments: Cervix is 5/50/-[address] Faust tracing: Category 1 No decelerations Baseline is 120 Moderate variability Contractions every 3 minutes - Routine Extremities Exam Absent: cyanosis, clubbing - Routine Skin Exam Present: intact. Absent: cyanosis, erythema - Routine Neurological Exam Present: alert, oriented X3 Results - Labs CBC & Chem 7: 04/29/18 18:15 04/29/18 18:15 Labs: Laboratory Results - last 24 hr 04/29/18 04/29/18 04/29/18 18:15 18:15 18:15 WBC 8.4 RBC 3.65 L Hgb 9.5 L Hct 28.2 L MCV 77.1 L MCH 26.1 L MCHC 33.8 RDW 14.3 Plt Count 340 MPV 7.7 Neut % (Auto) 65.2 Lymph % (Auto) 25.8 Caroline % (Auto) 8.1 H Eos % (Auto) 0.6 Baso % (Auto) 0.3 Neut # (Auto) 5.5 Lymph # (Auto) 2.2 Caroline # (Auto) 0.7 Eos # (Auto) 0.1 Baso # (Auto) 0.0 WBC Differential . Differential Comment Auto diff final D-Dimer Quant (PE/DVT) 2.25 H Sodium 139 Potassium 3.7 Chloride 110 H Carbon Dioxide 20.1 L Anion Gap 9 BUN 7 Creatinine 0.64 Estimated GFR Greater than 89 Random Glucose 75 Calcium 8.4 L Total Bilirubin 0.3 AST 10 L ALT 11 Alkaline Phosphatase 102 Total Protein 6.9 Albumin 2.4 L - Imaging Impressions Venous Doppler Study 04/29/18 17:47 CONCLUSION: Chest X-Ray 04/29/18 17:55 CONCLUSION: Assessment and Plan - Plan 22-year-old female at 37/6 in active labor. Admit to L & D. Intrauterine - heart tracing, category 1, reassuring -Cervix 5/50/-2 GBS positive, -Start PCN Asthma -stable Anticipate Vaginal Delivery sdw Dr. Faust and Dr. Rosa Discharge Plan - Discharge Disposition Patient Disposition: 02 Transfer To [facility] - Discharge Condition Condition: Stable - Physicians Team Primary Care Provider: UNKNOWN, Attending Provider: Matthieu Faust
[2018-04-29] MEDS ORDERED: Citric Acid/Sodium Citrate Liq 30 ML UDC PO SCH (21:45)
--- NOTE | 2018-04-29 22:01 | ECG ---
Date Performed: 04/29/2018 Time Performed: 18:33:03 PTAGE: 22 years EKG: Sinus rhythm WITH SINUS ARRHYTHMIA NORMAL ECG Compared to prior electrocardiogram, rate has increased. PREVIOUS TRACING : 04/29/2018 18.32 DOCTOR: Fredis Agustin Interpretating Date/Time 05/01/2018 06:59:29
--- NOTE | 2018-04-29 22:09 | P.HPOB ---
History of Present Illness Primary Care Physician: UNKNOWN History of Present Illness: 22 yr at 37/6 with history of asthma states that she began having contractions 30 minutes ago when she was examined in the ED. She has been receiving care with Christa Dunbar. She reports no complications with this . Endorses good movement. She denies leakage of fluid, vaginal bleeding, vaginal discharge. Reports that GBS is unknown. - Inpatient Certification I certify that the inpatient services were ordered in accordance with Medicare regulations governing the order. This includes certification that hospital inpatient services are reasonable and necessary and in the case of services not specified as inpatient-only under 42 CFR 419.22(n), that they are appropriately provided as inpatient services in accordance to with the 2-midnight benchmark under 43 CFR 412.3(e) Estimated Total Length of Stay (Days): 3 Plans for Post Hospital Care: Home Review of Systems All other systems reviewed negative except as stated in HPI PMFSH - History History Provided By: Patient - Medical History Medical History: Medical History (Last Updated 04/29/18 @ 17:57 by Sylvia Dunbar) Patient denies medical problems - Surgical History Surgical History: Surgical History (Last Updated 04/06/18 @ 07:42 by Genaro Briones MD, R2) No history of previous surgery - Family History Family History: Family History (Last Updated 04/06/18 @ 07:43 by Genaro Briones MD, R2) Other Family history of diabetes mellitus Family history of hypertension - Tobacco History Second Hand Smoke Exposure: No Smoking Status: Never smoker - Alcohol History How Often Do You Have a Drink Containing Alcohol: Never - Substance Use History Substance History: No History of Abuse - Travel History History of Recent Travel: No Recent Travel in the [place] Within the Last 8 Weeks: No Recent Travel Out of the Country Within the Last 8 Weeks: No - Immunization History Tetanus Immunization: <5 Years Medications and Allergies Active Medications: Active Medications Citric Acid/Sodium Citrate (Sodium Citrate/Citric Acid Liq) 30 ml PO PHARMACY MESSENGER SOPHIA Stop: 05/03/18 21:44 Fentanyl Citrate (Fentanyl Inj) 50 mcg IV.PUSH Q1H PRN PRN Reason: Pain Scale 3 - 5 Fentanyl Citrate (Fentanyl Inj) 100 mcg IV.PUSH Q1H PRN PRN Reason: PAIN SCALE 6 TO 10 Lactated Ringer's (Lr 1000 Ml Inj) 1,000 mls @ 125 mls/hr IV.CONT .Q8H SOPHIA Lactated Ringer's (Lr 1000 Ml Inj) 1,000 mls @ 3,000 mls/hr IV.SIG UNSCH PRN PRN Reason: compromise or epidural Sodium Chloride (Ns Inj) 500 mls @ 1,000 mls/hr IV.SIG UNSCH PRN PRN Reason: SEE LABEL COMMENTS Penicillin G Potassium 2,500, (000 unit/ Sodium Chloride) 100 mls @ 200 mls/hr IV.SIG Q4H SOPHIA Sodium Chloride (Ns Inj) 1,000 mls @ 100 mls/hr IV.CONT .Q10H PRN PRN Reason: SEE LABEL COMMENTS Lidocaine HCl (Xylocaine 1% Inj) 0.1 ml I-DERMAL PRN PRN PRN Reason: For IV start Stop: 05/02/18 21:31 Lidocaine HCl (Xylocaine 1% Inj) 10 ml INFILTRATN PRN PRN PRN Reason: For episiotomy repair Stop: 05/01/18 21:31 Mineral Oil (Muri-Lube Oil) 10 ml TOPICAL PRN PRN PRN Reason: PRN perineal massage Naloxone HCl (Narcan Inj) 0.1 mg IV.PUSH Q2M PRN PRN Reason: for opiate reversal Allergies Allergy/AdvReac Type Severity Reaction Status Date / Time No Known Allergies Allergy Verified 04/20/18 08:25 Home Medications Medication Instructions Recorded Confirmed Type No Known Home Medications 04/06/18 04/29/18 History Exam Vital signs: Vital Signs 04/29/18 17:54 04/29/18 20:43 04/29/18 20:46 Temperature 98.9 F 98.5 F Pulse Rate 87 Respiratory Rate 24 16 Blood Pressure 156/87 H 136/80 Pulse Oximetry 100 Intake & Output 04/29/18 04/29/18 04/30/18 06:59 18:59 06:59 Weight 75.296 kg - Constitutional no acute distress - Routine Respiratory Exam Present: CTA bilaterally. Absent: accessory muscle use, wheezes, crackles - Routine Cardiovascular Exam Present: RRR. Absent: murmur, gallop, rubs - Routine Exam Comments: Cervix is 5/50/-[address] Faust tracing: Category 1 No decelerations Baseline is 120 Moderate variability Contractions every 3 minutes - Routine Skin Exam Absent: cyanosis, erythema - Routine Neurological Exam Present: alert, oriented X3 Results - Labs CBC & Chem 7: 04/29/18 18:15 04/29/18 18:15 Labs: Laboratory Results - last 24 hr 04/29/18 04/29/18 04/29/18 18:15 18:15 18:15 WBC 8.4 RBC 3.65 L Hgb 9.5 L Hct 28.2 L MCV 77.1 L MCH 26.1 L MCHC 33.8 RDW 14.3 Plt Count 340 MPV 7.7 Neut % (Auto) 65.2 Lymph % (Auto) 25.8 Moody % (Auto) 8.1 H Eos % (Auto) 0.6 Baso % (Auto) 0.3 Neut # (Auto) 5.5 Lymph # (Auto) 2.2 Moody # (Auto) 0.7 Eos # (Auto) 0.1 Baso # (Auto) 0.0 WBC Differential . Differential Comment Auto diff final D-Dimer Quant (PE/DVT) 2.25 H Sodium 139 Potassium 3.7 Chloride 110 H Carbon Dioxide 20.1 L Anion Gap 9 BUN 7 Creatinine 0.64 Estimated GFR Greater than 89 Random Glucose 75 Calcium 8.4 L Total Bilirubin 0.3 AST 10 L ALT 11 Alkaline Phosphatase 102 Total Protein 6.9 Albumin 2.4 L - Imaging Impressions Venous Doppler Study 04/29/18 17:47 CONCLUSION: Chest X-Ray 04/29/18 17:55 CONCLUSION: Caprini VTE Risk Assessment Caprini VTE Risk Assessment: No/Low Risk (score <= 1) Caprini Risk Assessment Model: Point Value = 1 Point Value = 2 Point Value = 3 Point Value = 5 Age 41-60 Minor surgery BMI > 25 kg/m2 Swollen legs Varicose veins or History of unexplained or recurrent spontaneous Oral contraceptives or hormone replacement Sepsis (< 1 month) Serious lung disease, including pneumonia (< 1 month) Abnormal pulmonary function Acute myocardial infarction Congestive heart failure (< 1 month) History of inflammatory bowel disease Medical patient at bed rest Age 61-74 Arthroscopic surgery Major open surgery (> 45 min) Laparoscopic surgery (> 45 min) Malignancy Confined to bed (> 72 hours) Immobilizing plaster cast Central venous access Age >= 75 History of VTE Family history of VTE Factor V Leiden Prothrombin [id number] Lupus anticoagulant Anticardiolipin antibodies Elevated serum homocysteine Heparin-induced thrombocytopenia Other congenital or acquired thrombophilia Stroke (< 1 month) Elective arthroplasty Hip, pelvis, or leg fracture Acute spinal cord injury (< 1 month) Prophylaxis Regimen: Total Risk Factor Score Risk Level Prophylaxis Regimen 0-1 Low Early ambulation 2 Moderate Order ONE of the following: *Sequential Compression Device (SCD) *Heparin 5000 units SQ BID 3-4 Higher Order ONE of the following medications: *Heparin 5000 units SQ TID *Enoxaparin/Lovenox 40 mg SQ daily (WT < 150 kg, CrCl > 30 mL/min) *Enoxaparin/Lovenox 30 mg SQ daily (WT < 150 kg, CrCl > 10-29 mL/min) *Enoxaparin/Lovenox 30 mg SQ BID (WT < 150 kg, CrCl > 30 mL/min) AND/OR *Sequential Compression Device (SCD) 5 or more Highest Order ONE of the following medications: *Heparin 5000 units SQ TID (Preferred with Epidurals) *Enoxaparin/Lovenox 40 mg SQ daily (WT < 150 kg, CrCl > 30 mL/min) *Enoxaparin/Lovenox 30 mg SQ daily (WT < 150 kg, CrCl > 10-29 mL/min) *Enoxaparin/Lovenox 30 mg SQ BID (WT < 150 kg, CrCl > 30 mL/min) AND *Sequential Compression Device (SCD) Assessment and Plan - Plan 22-year-old female at 37/6 in active labor. Admit to L & D. Intrauterine - heart tracing, category 1, reassuring -Cervix 5/50/-2 GBS positive, -Start PCN Asthma -stable Anticipate Vaginal Delivery sdw Dr. Faust and Dr. Rosa
[2018-04-29 22:27] LABS: Amphetamine Urine With Conf Neg (Neg); Benzodiazepine Urine With Conf Neg (Neg)
[2018-04-29] MEDS ORDERED: Oxytocin 30 Units/500ml Premix 30 UNITS/500 ML BAG IV.SIG PRN (23:33)
[2018-04-30] MEDS ORDERED: fentaNYL 2MCG-Bupiv 0.125% Epi 150 ML EPIDURAL ONE (00:10)
[2018-04-30] MEDS ORDERED: fentaNYL 2MCG-Bupiv 0.125% Epi 150 ML EPIDURAL PRN (01:35)
[2018-04-30] MEDS ORDERED: fentaNYL Citrate Inj 100 MCG/2 ML Ampul EPIDURAL ONE (01:35)
[2018-04-30] MEDS ORDERED: Penicillin G Potassium Inj 2,500,000 UNIT in Sodium Chlor 0.9% Inj 100 ML IV.SIG SCH (02:00)
[2018-04-30] MEDS ORDERED: Bisacodyl 10 MG Supp RECTAL PRN (05:43)
[2018-04-30] MEDS ORDERED: Witch Hazel 50%/Glyderin 12.5% 40 Pad Jar RECTAL PRN (05:43)
[2018-04-30] MEDS ORDERED: Zolpidem Tartrate 5 MG Tablet PO PRN (05:43)
[2018-04-30] MEDS ORDERED: Benzocaine 20% Top Spray 60 ML Can TOPICAL PRN (05:43)
[2018-04-30] MEDS ORDERED: Naloxone Inj 0.4 MG/ML Vial IV.PUSH PRN (05:43)
[2018-04-30] MEDS ORDERED: Acetaminophen 325 MG Tablet PO PRN (05:43)
[2018-04-30] MEDS ORDERED: Oxytocin 30 Units/500ml Premix 30 UNITS/500 ML BAG IV.CONT SCH (05:45)
--- NOTE | 2018-04-30 05:51 | P.OBDELI ---
Weeks Gestation: 38 Artificial Rupture of Membrane: Yes Artificial ROM Date: 04/29/18 Artificial ROM Time: 23:00 Anesthesia: Epidural Episiotomy: none Vaginal Delivery: Normal, Spontaneous Presentation: Occiput anterior Nuchal Cord: None Delayed Cord Clamping (45 sec): Yes Laceration: 1 deg Repair: Chromic interrupted Estimated blood loss (mL): 200 Infant: Male Infant Male A Delivery Date: 04/30/18 Delivery Time: 05:30 Weight: 3.175 kg score (1 min): 8 score (5 min): 9
[2018-04-30] MEDS: Ibuprofen 400 MG Tablet PO PRN ×2 (06:34→20:16)
[2018-04-30] MEDS ORDERED: Measles/Mumps/Rubella Vaccine Inj 0.5 ML Vial SQ ONE (16:00)
[2018-04-30] MEDS ORDERED: Diphtheria/Tetanus/Pertussis Vaccine Inj 0.5 ML Syringe IM ONE (16:00)
[2018-04-30] MEDS: Senna/Docusate Sodium 8.6/50 MG Tablet PO PRN (21:48)
[2018-05-01] MEDS: Ibuprofen 400 MG Tablet PO PRN ×2 (06:02→21:01)
--- NOTE | 2018-05-01 08:03 | P.PNOB ---
Subjective Interval history: Patient is a 22-year-old delivered at 38 weeks. Patient is day 1 after . Patient's pain is well-controlled. Patient reports eating and drinking without any nausea or vomiting. Patient reports minimal bleeding. Patient has passed gas but no bowel movements. Patient is walking without lower extremity pain or shortness of breath. Patient is undetermined about contraception at this time. Objective Vital Signs/I&O: Vital Signs 04/30/18 08:14 04/30/18 08:30 04/30/18 20:00 Temperature 98.0 F 98.0 F 98.3 F Pulse Rate 62 55 L 87 Respiratory Rate 18 16 18 Blood Pressure 146/85 H 129/72 151/96 H 04/30/18 20:55 Temperature Pulse Rate 62 Respiratory Rate Blood Pressure 148/92 H Result Diagrams: 04/29/18 18:15 04/29/18 18:15 Objective Remarks: GENERAL: Well-nourished, well-developed patient. CARDIOVASCULAR: Regular rate and rhythm without murmurs, gallops, or rubs. RESPIRATORY: Breath sounds equal bilaterally. No accessory muscle use. ABDOMEN/GI: Abdomen soft, non-tender. Fundus: Firm, non-tender at umbilicus. GENITOURINARY: Light to moderate bleeding. EXTREMITIES: No cyanosis or edema, non-tender, without signs of DVT. Medications and IVs: Active Medications Acetaminophen (Tylenol) 650 mg PO Q4H PRN PRN Reason: PAIN SCALE 1 TO 2 Al Hydroxide/Mg Hydroxide (Milk Of Magnesia Liq) 30 ml PO Q12H PRN PRN Reason: Mild Constipation Benzocaine (Americaine 20% [place]) 1 spray TOPICAL Q4H PRN PRN Reason: For Perineum Discomfort Bisacodyl (Dulcolax Supp) 10 mg RECTAL DAILY PRN PRN Reason: SEVERE CONSITIPATION Ibuprofen (Motrin) 800 mg PO Q8H PRN PRN Reason: For cramping Last Admin: 05/01/18 06:02 Dose: 800 mg Lactulose (Lactulose Liq) 30 ml PO DAILY PRN PRN Reason: SEVERE CONSITIPATION Naloxone HCl (Narcan Inj) 0.1 mg IV.PUSH Q2M PRN PRN Reason: for opiate reversal Ondansetron HCl (Zofran Odt) 4 mg PO Q6H PRN PRN Reason: NAUSEA OR VOMITING Oxycodone/Acetaminophen (Percocet 5/325 Mg) 1 tab PO Q4H PRN PRN Reason: PAIN SCALE 6 TO 10 Last Admin: 04/30/18 20:16 Dose: 1 tab Senna/Docusate Sodium (Deanna-Colace) 1 tab PO BID PRN PRN Reason: CONSTIPATION Last Admin: 04/30/18 21:48 Dose: 1 tab Sennosides (Senokot) 17.2 mg PO Q12H PRN PRN Reason: Moderate Constipation Sodium Chloride (Ns Flush) 2 ml IV.FLUSH BID SOPHIA Last Admin: 05/01/18 07:16 Dose: Not Given Sodium Chloride (Ns Flush) 2 ml IV.FLUSH PRN PRN PRN Reason: FLUSH AFTER USING IV ACCESS Witch Lisbet/Glycerin (Tucks Pads) 1 applicatio RECTAL QID PRN PRN Reason: HEMORRHOIDS Zolpidem Tartrate (Ambien) 5 mg PO HS PRN PRN Reason: SLEEP Assessment and Plan - Plan Patient is a 22-year-old delivered at 38 weeks. Patient is day 1 after . Patient was counseled to do 6 weeks of pelvic rest. Patient was counseled to follow up in 6 weeks. Patient requested follow-up and contraception. --AF VSS --Continue routine care --Motrin and Percocet when necessary for pain --Encourage OOB --Pelvic rest for 6 weeks will need follow-up appointment at that time. --Contraception: Undecided at this time --Anticipate discharge tomorrow - Attending Attestation The exam, history, and the medical decision-making described in the above note were completed with the assistance of the resident physician. I reviewed and agree with the findings presented. I attest that I had a [id number] encounter with the patient on the same day, and personally performed and documented my assessment and findings in the medical record.
[2018-05-01] MEDS: Senna/Docusate Sodium 8.6/50 MG Tablet PO PRN (21:01)
[2018-05-02] MEDS: Ibuprofen 400 MG Tablet PO PRN (05:03)
--- NOTE | 2018-05-02 08:08 | P.PNOB ---
Subjective Interval history: Patient is a 22-year-old delivered at 38 weeks and 0 days. Patient is day 2 after . Patient's pain is well-controlled. Patient reports eating and drinking without any nausea or vomiting. Patient reports minimal bleeding. Patient has passed gas and bowel movements. Patient is walking without lower extremity pain or shortness of breath. Patient reports no desire for contraception. Objective Vital Signs/I&O: Vital Signs 05/01/18 20:00 Temperature 98.6 F Pulse Rate 90 Respiratory Rate 18 Blood Pressure 141/91 H Result Diagrams: 04/29/18 18:15 04/29/18 18:15 Objective Remarks: GENERAL: Well-nourished, well-developed patient. CARDIOVASCULAR: Regular rate and rhythm without murmurs, gallops, or rubs. RESPIRATORY: Breath sounds equal bilaterally. No accessory muscle use. ABDOMEN/GI: Abdomen soft, non-tender. Fundus: Firm, non-tender at umbilicus. GENITOURINARY: Light to moderate bleeding. EXTREMITIES: No cyanosis or edema, non-tender, without signs of DVT. Medications and IVs: Active Medications Acetaminophen (Tylenol) 650 mg PO Q4H PRN PRN Reason: PAIN SCALE 1 TO 2 Al Hydroxide/Mg Hydroxide (Milk Of Magnesia Liq) 30 ml PO Q12H PRN PRN Reason: Mild Constipation Benzocaine (Americaine 20% Top [place]) 1 spray TOPICAL Q4H PRN PRN Reason: For Perineum Discomfort Bisacodyl (Dulcolax Supp) 10 mg RECTAL DAILY PRN PRN Reason: SEVERE CONSITIPATION Ibuprofen (Motrin) 800 mg PO Q8H PRN PRN Reason: For cramping Last Admin: 05/02/18 05:03 Dose: 800 mg Lactulose (Lactulose Liq) 30 ml PO DAILY PRN PRN Reason: SEVERE CONSITIPATION Naloxone HCl (Narcan Inj) 0.1 mg IV.PUSH Q2M PRN PRN Reason: for opiate reversal Ondansetron HCl (Zofran Odt) 4 mg PO Q6H PRN PRN Reason: NAUSEA OR VOMITING Oxycodone/Acetaminophen (Percocet 5/325 Mg) 1 tab PO Q4H PRN PRN Reason: PAIN SCALE 6 TO 10 Last Admin: 05/01/18 09:16 Dose: 1 tab Senna/Docusate Sodium (Deanna-Colace) 1 tab PO BID PRN PRN Reason: CONSTIPATION Last Admin: 05/01/18 21:01 Dose: 1 tab Sennosides (Senokot) 17.2 mg PO Q12H PRN PRN Reason: Moderate Constipation Sodium Chloride (Ns Flush) 2 ml IV.FLUSH BID SOPHIA Last Admin: 05/02/18 05:08 Dose: Not Given Sodium Chloride (Ns Flush) 2 ml IV.FLUSH PRN PRN PRN Reason: FLUSH AFTER USING IV ACCESS Witch Lisbet/Glycerin (Tucks Pads) 1 applicatio RECTAL QID PRN PRN Reason: HEMORRHOIDS Zolpidem Tartrate (Ambien) 5 mg PO HS PRN PRN Reason: SLEEP Assessment and Plan - Plan Patient is a 22-year-old delivered at 38 weeks. Patient is day 2 after . Patient was counseled to do 6 weeks of pelvic rest. Patient was counseled to follow up in 6 weeks. Patient requested follow-up and contraception. --AF VSS --Continue routine care --Motrin and Tylenol when necessary for pain --Encourage OOB --Pelvic rest for 6 weeks will need follow-up appointment at that time. --Contraception: Does not desire at this time --Anticipate discharge today
== END 2018-05-02 15:03 | disposition home or self-care (01) ==
LOC: NEPD 17:32 → H2E 21:22 → H1EA 04-30 07:54
PROVIDERS: ADMIT Obstetrics & Gynecology Maternal & Fetal Medicine; ATTEND Obstetrics & Gynecology Maternal & Fetal Medicine